=== PATIENT | female | born 1965 | race Caucasian/White ===

== ENCOUNTER 2022-11-28 07:23 | Outpatient (REF) | payer MEDICARE, SELFPAY ==
[2022-11-28 11:04] LABS: MANUAL DIFF FLAG NO
[2022-11-28 11:12] LABS: Basophils Percent Auto 0.3 % (0-2); Hematocrit 33.3 % (37.0-47.0); Hemoglobin 10.8 g/dl (12.0-16.0); Imm Gran Abs Auto 0.01 X10*3/uL (0.00-0.03); Imm Gran Pct Auto 0.3 % (0.0-0.4); Lymphocytes Absolute Auto 0.4 X10*3/uL (1.2-4.9); Lymphocytes Percent Auto 12.6 % (20-40); Mean Corpuscular HGB Conc 32.4 g/dl (31.0-35.0); Mean Corpuscular Hemoglobin 31.6 pg (27.0-33.0); Mean Corpuscular Volume 97.4 fL (80.0-98.0); Mean Platelet Volume 11.5 fL (9.4-12.3); Monocytes Absolute Auto 0.2 X10*3/uL (0.1-1.2); Monocytes Percent Auto 7.3 % (2-11); Neutrophils Absolute Auto 2.4 x10*3/uL (2.0-8.3); Neutrophils Percent Auto 78.5 % (45-73); Platelet Count 288 X10*3/uL (160-400); Red Blood Count 3.42 X10*6/uL (4.20-5.50); Red Cell Distribution Width 14.2 % (11.0-16.0)
[2022-11-28 11:35] LABS: Appearance Urine Clear; Color Urine Yellow; Glucose Urine UA Negative (Negative); Leukocyte Esterase Urine Negative (Negative); Nitrite Urine Negative (Negative); PH 5.5 (5.0-9.0); Specific Gravity - Urine 1.025 (1.005-1.025); UMIC TRIGGER UACC YES; Urine Blood Negative (Negative); Urine Ketones Negative (Negative); Urine Protein 30 (1+) mg/dL (Neg-Trace)
[2022-11-28 11:44] LABS: Bacteria Urine None Seen (None Seen); Calcium Oxalate Crystals Urine Present; Hyaline Casts Urine 0-2 /LPF (0-2); Squamous Epithelial Cell Urine 0-2 /HPF (0-2); WBC Urine 0-5 /HPF (0-5)
[2022-11-28 12:18] LABS: Alanine Aminotransferase 24 U/L (0-31); Albumin Level 3.8 g/dL (3.5-5.0); Alkaline Phosphatase 64 U/L (39-117); Anion Gap 13 (12-20); Aspartate Amino Transferase 37 U/L (5-31); Bilirubin Total 0.4 mg/dL (0.0-1.0); Blood Urea Nitrogen 17 mg/dL (9-16); Calcium 8.6 mg/dL (8.4-10.2); Carbon Dioxide 26 mmol/L (22-29); Chloride 108 mmol/L (96-108); Cholesterol 139 mg/dL; Estimated Glomerular Filt Rate > 60; Glucose Fasting 86 mg/dL (60-99); HDL Cholesterol 47 mg/dL; LDL Cholesterol Calculated 74 mg/dl; Potassium 3.6 mmol/L (3.3-5.1); Sodium 143 mmol/L (135-145); TSH reflex Free T4 1.68 uIU/mL (0.32-4.0); Total Protein 7.7 g/dL (6.5-8.0); Triglycerides 90 mg/dL
== END 2022-11-28 07:24 | disposition home or self-care (01) ==
LOC: HO.WFDLDS 07:23
PROVIDERS: Visit Provider Nurse Practitioner Family
DX: Z00.00 Encounter for general adult medical examination without abnormal findings (principal); R21 Rash and other nonspecific skin eruption; M32.9 Systemic lupus erythematosus, unspecified; D64.9 Anemia, unspecified; G62.9 Polyneuropathy, unspecified; N30.10 Interstitial cystitis (chronic) without hematuria
CPT/HCPCS: 36415; 80053; 80061; 81001; 84443; 85025

== ENCOUNTER 2023-01-19 11:35 | Outpatient (AMB) | payer MEDICARE, SELFPAY ==
--- NOTE | 2023-01-19 11:43 | MHC.PC.OV ---
Vital Signs 01/19/23 11:44 Height 5 ft Weight 105 lb 2 oz BMI 20.5 BP 110/60 Blood Pressure Location Rt brachial Position Sitting Pulse 89 Pulse Source Pulse Oximeter Pulse Oximetry (%) 99 Intake Visit Reasons: discuss referral for podiatry Intake Note: pt is here for referral for podiatry. patient states she hurt her foot with a vacuum. looking for just a referral for podiatry since she already has an appointment for podiatry. Dr Penn 01/26/23 @ 2pm on [facility] office phone number is [phone]. [place] Flap Trimmer Required: No Accompanied by: Self / Same As Patient Allergies Penicillins Allergy (Verified 01/19/23 12:21) Chest Pain Sulfa (Sulfonamide Antibiotics) Allergy (Verified 01/19/23 12:21) Chest Pain Medication List - Last Reconciled 01/19/23 by Jayro Bustillo CNP acyclovir 400 mg PO BID 90 days alendronate 70 mg PO QWEEK 90 days atorvastatin 10 mg PO DAILY 90 days azathioprine 25 mg (1/2 x 50 mg) PO DAILY 90 days betamethasone dipropionate 0.05% 1 appl topical BID PRN cyclobenzaprine 10 mg PO BEDTIME PRN esomeprazole magnesium 20 mg PO DAILY famotidine (Acid Speech Therapy Assistant (famotidine)) 20 mg PO DAILY hydroxyzine HCl 10 mg PO BEDTIME PRN ketoconazole 2% appl topical DAILY oxybutynin chloride 5 mg PO BID 90 days sennosides (senna) 17.2 mg (2 x 8.6 mg) PO DAILY PRN 90 days sucralfate 1 g PO QID 90 days warfarin 4 mg PO DAILY 90 days Tobacco use date assessed: 11/24/22 Dental Screening Dental Screen Date: 01/19/23 Did you have a dental visit in the last 12 months?: Yes Did you have a dental problem in the last 6 months where you did not have access to dental care?: No Was dental information given to patient?: Patient has dentist HPI HPI Comments History of Present Illness Details 57-year-old female presents with requests for podiatry referral. She notes she inadvertently injured her foot with a vacuum. She notes the vacuum landed on her left foot six weeks ago. She has been experiencing intermittent pain to the bottom of her left great toe. No swelling or redness. She has an appointment scheduled with Dr. Penn, podiatry on 01/26/2023. However, a referral is required. No acute symptoms today. [facility] Medical History Acid reflux DVT (deep venous thrombosis) FH: cholecystectomy (~05/08/14) Gallbladder & bile duct stone with obstruction Gastritis Hernia of abdominal wall (~08/08/06) Hyperlipemia Hypocalcemia Kidney stones (~12/06/04) Lupus Neuropathy Osteopenia Osteoporosis Pulmonary embolism SLE (systemic lupus erythematosus) Surgical History H/O splenectomy (~08/08/05) S/P IVC filter Family History Father Colon cancer Lupus AA (alcohol abuse) Heart disease Mother COVID, Onset Age: 82 Sister COVID Maternal Grandfather Myocardial infarction Maternal Grandmother Malignant melanoma Social History Household Members: Spouse Housing: House Patient Tobacco Use Status: Never used Tobacco e-Cigarette/Vaping Use: Never Used Substance Use Type: Caffiene service: No Current occupational status: retired and disabled Gender identity: Female Cognitive needs: No Hearing needs: No Vision needs: No Questionnaire Thrive Questionnaire Date Thrive assessed: 11/24/22 LAWSON-7 AMB Questionnaire LAWSON-7 Date LAWSON - 7 assessed: 11/24/22 Source: Developed by Drs. Mj Cohen, Marianne To, Dennis Bland and colleagues, with an educational carlos from [employer]. Review of Systems Const Details: Const Denies chills, Denies fatigue, Denies fever(s), Denies headache(s) and Denies weakness ENT Denies dizziness and Denies headache(s) Card Denies chest pain, Denies lightheadedness, Denies dyspnea and Denies other (Palpitations) Resp Denies cough, Denies dyspnea, Denies wheezing and Denies other ( shortness of breath) GI Denies abdominal pain, Denies melena, Denies hematochezia, Denies change in bowel habits, Denies dyspepsia and Denies nausea Denies hematuria and Denies dysuria Musc Denies abnormal gait, Denies myalgias, Denies arthralgias, Denies numbness and Denies tingling Skin/Breast Denies rash, Denies unusual bruising and Denies wounds Neuro Denies abnormal gait, Denies dizziness, Denies headache(s), Denies memory loss, Denies numbness, Denies Sensory deficit (Neuro), Denies tingling and Denies weakness Psych Denies anxiety and Denies depression Endo Denies fatigue Aller/Immun Denies wheezing Physical exam (Primary Care) Vital Signs: Last Vital Signs Pulse 89 01/19/23 11:44 BP 110/60 01/19/23 11:44 Pulse Ox 99 01/19/23 11:44 BMI result Body Mass Index 20.5 Tobacco/Smoking Status: Tobacco use Status Tobacco use date assessed 11/24/22 01/19/23 11:54 Patient Tobacco Use Status Never used Tobacco 01/19/23 11:54 e-Cigarette/Vaping Use Never Used 01/19/23 11:54 Thrive Assessment: Date of Thrive Assessment Date Thrive assessed 11/24/22 01/19/23 11:54 Const Other: General: no acute distress and well developed Nutritional Appearance: well nourished Orientation/consciousness: patient oriented x3 HENMT Head: Yes normocephalic and Yes atraumatic Eyes General: appearance normal, both eyes and all related structures Pupils: Equal, round and reactive pupils present EOM: EOMs intact bilaterally Resp Effort & Inspection: normal respiratory effort Auscultation: clear to auscultation bilaterally Cardio Rate: regular rate Rhythm: regular rhythm Heart sounds: S1 normal heart sound present, S2 normal heart sound present, no gallops, no murmurs and no rubs GI Palpation (GI): No Abdominal aortic bruit present, Soft to palpation, nontender, No hepatosplenomegaly present and No Rebound tenderness present Auscultation: normal bowel sounds General: Yes no CVA tenderness Back/Spine/Pelvis Back: no CVA tenderness Cervical Spine: cervical ROM normal and No Cervical spine tenderness Thoracic/Lumbar Spine: thoraco-lumbar ROM normal, No pain with thoraco-lumbar ROM, No thoracic spinal tenderness and No lumbar spinal tenderness Extrem General: Yes normal to inspection, No edema and No calf tenderness Normal ROM of the left foot and toes, palpable DP/PT pulses Skin General: warm and dry. Normal skin color. Normal skin turgor Lesions: no lesions Rashes: no rashes Trauma: no lacerations or abrasions Wounds: no wounds Nails: normal Neuro General: patient oriented x3, gait normal and no focal neuro deficit Cranial nerves: Yes Equal, round and reactive pupils present Cognition (Neuro): normal cognition Gait exam (Neuro): Normal gait present Sensory Exam: No Sensory deficit (Neuro) Psych Affect: normal affect Assessment and Plan Assessment & Plan (1) Pain of left great toe: Code(s): M79.675 - Pain in left toe(s) Plan: Reports intermittent pain to the bottom of her left great toe Normal exam of the left foot and toes, palpable DP/PT pulses Referred to Dr. Penn, podiatry May take Tylenol or Motrin apply warm/cold compresses for pain or discomfort Follow-up with worsening or new symptoms Verbalized understanding and agreed with treatment plan. Orders: Referrals Podiatry Referral M79.675 - Pain in left toe(s) Coding Level of Care Code Est Pt Level 3 (80010) Diagnoses Pain of left great toe M79.675 Time Spent (min) 25
[2023-01-19 11:44] VITALS: BP 110/60; PULSE 89; O2SAT 99; BMI 20.5
== END 2023-01-19 12:36 | disposition home or self-care (01) ==
PROVIDERS: PCP Nurse Practitioner Family; Visit Provider Nurse Practitioner Family
DX: M79.675 Pain in left toe(s) (principal)
CPT/HCPCS: 99213

== ENCOUNTER 2023-02-01 15:30 | Outpatient (AMB) | payer MEDICARE, SELFPAY ==
[2023-02-01 15:42] VITALS: BP 102/58; PULSE 80; RESP 12; TEMP 36.3; O2SAT 99; BMI 20.4
--- NOTE | 2023-02-01 15:42 | MHC.PC.OV ---
Vital Signs 02/01/23 15:42 Height 5 ft Weight 104 lb 4 oz BMI 20.4 BP 102/58 L Blood Pressure Location Rt brachial Position Sitting Respiration 12 Pulse 80 Pulse Source Pulse Oximeter Temp 97.4 F Temp Source Temporal Artery Scan Pulse Oximetry (%) 99 Oxygen Delivery Method Room Air Intake Visit Reasons: body aches, headache, clammy Intake Note: Patient states that her symptoms started mostly lastnight. Patient states that her throat is a little scratchy. Patient statesthat she hasn't really had an appetite the past couple of days. On Site Nurse Required: No Accompanied by: Self / Same As Patient Allergies Penicillins Allergy (Verified 02/01/23 16:04) Chest Pain Sulfa (Sulfonamide Antibiotics) Allergy (Verified 02/01/23 16:04) Chest Pain Medication List - Last Reconciled 02/01/23 by Jayro Bustillo CNP acyclovir 400 mg PO BID 90 days alendronate 70 mg PO QWEEK 90 days atorvastatin 10 mg PO DAILY 90 days azathioprine 25 mg (1/2 x 50 mg) PO DAILY 90 days cyclobenzaprine 10 mg PO BEDTIME PRN esomeprazole magnesium 20 mg PO DAILY famotidine (Acid Water Resources Project Manager (famotidine)) 20 mg PO DAILY hydroxyzine HCl 10 mg PO BEDTIME PRN oxybutynin chloride 5 mg PO BID 90 days sennosides (senna) 17.2 mg (2 x 8.6 mg) PO DAILY PRN 90 days sucralfate 1 g PO QID 90 days warfarin 4 mg PO DAILY 90 days Tobacco use date assessed: 11/24/22 Dental Screening Dental Screen Date: 02/01/23 Did you have a dental visit in the last 12 months?: Yes Did you have a dental problem in the last 6 months where you did not have access to dental care?: No Was dental information given to patient?: Patient has dentist HPI HPI Comments History of Present Illness Details 57-year-old female present with complaints of frontal headache, and body aches. She reports associated fatigue, scratchy throat, nausea, and nausea. She reports poor appetite in the past 2 days. She reports initial clammy skin which subsided. She notes her symptoms started last night. She denies sick contact. She notes she has a negative home COVID test today. [facility] Medical History Acid reflux DVT (deep venous thrombosis) FH: cholecystectomy (~05/08/14) Gallbladder & bile duct stone with obstruction Gastritis Hernia of abdominal wall (~08/08/06) Hyperlipemia Hypocalcemia Kidney stones (~12/06/04) Lupus Neuropathy Osteopenia Osteoporosis Pulmonary embolism SLE (systemic lupus erythematosus) Surgical History H/O splenectomy (~08/08/05) S/P IVC filter Family History Father Colon cancer Lupus AA (alcohol abuse) Heart disease Mother COVID, Onset Age: 82 Sister COVID Maternal Grandfather Myocardial infarction Maternal Grandmother Malignant melanoma Social History Household Members: Spouse Housing: House Patient Tobacco Use Status: Never used Tobacco e-Cigarette/Vaping Use: Never Used Substance Use Type: Caffiene service: No Current occupational status: retired and disabled Gender identity: Female Cognitive needs: No Hearing needs: No Vision needs: No Questionnaire Thrive Questionnaire Date Thrive assessed: 11/24/22 LAWSON-7 AMB Questionnaire LAWSON-7 Date LAWSON - 7 assessed: 11/24/22 Source: Developed by Drs. Mj Cohen, Marianne To, Dennis Bland and colleagues, with an educational carlos from [employer]. Review of Systems Const Details: Const Denies chills, Reports fatigue, Denies fever(s), Reports headache(s) and Denies weakness ENT Reports as per HPI Card Denies chest pain, Denies lightheadedness, Denies dyspnea and Denies other (Palpitations) Resp Denies cough, Denies dyspnea, Denies wheezing and Denies other ( shortness of breath) GI Denies abdominal pain, Denies melena, Denies hematochezia, Denies change in bowel habits, Denies dyspepsia and Denies nausea Denies hematuria and Denies dysuria Musc Denies abnormal gait, Reports myalgias, Denies arthralgias, Denies numbness and Denies tingling Skin/Breast Denies rash, Denies unusual bruising and Denies wounds Neuro Denies abnormal gait, Denies dizziness, Denies headache(s), Denies memory loss, Denies numbness, Denies Sensory deficit (Neuro), Denies tingling and Denies weakness Psych Denies anxiety, Denies depression, Denies memory loss Endo Denies cold intolerance, Reports fatigue, Denies heat intolerance, Denies polydipsia and Denies polyuria Aller/Immun Denies wheezing Physical exam (Primary Care) Vital Signs: Last Vital Signs Temp 97.4 F 02/01/23 15:42 Pulse 80 02/01/23 15:42 Resp 12 02/01/23 15:42 BP 102/58 L 02/01/23 15:42 Pulse Ox 99 02/01/23 15:42 Oxygen Delivery Method Room Air 02/01/23 15:42 BMI result Body Mass Index 20.4 Tobacco/Smoking Status: Tobacco use Status Tobacco use date assessed 11/24/22 02/01/23 15:53 Patient Tobacco Use Status Never used Tobacco 02/01/23 15:53 e-Cigarette/Vaping Use Never Used 02/01/23 15:53 Thrive Assessment: Date of Thrive Assessment Date Thrive assessed 11/24/22 02/01/23 15:53 Const Other: General: no acute distress and well developed Nutritional Appearance: well nourished Orientation/consciousness: patient oriented x3 HENMT Head is normocephalic Bilateral ear canal and TM are normal Nasal turbinates and oropharynx are pink and moist Sinuses are nontender with palpation No auricular or cervical lymphadenopathy Eyes General: appearance normal, both eyes and all related structures Pupils: Equal, round and reactive pupils present EOM: EOMs intact bilaterally Resp Effort & Inspection: normal respiratory effort Auscultation: clear to auscultation bilaterally Cardio Rate: regular rate Rhythm: regular rhythm Heart sounds: S1 normal heart sound present, S2 normal heart sound present, no gallops, no murmurs and no rubs GI Palpation (GI): No Abdominal aortic bruit present, Soft to palpation, nontender, No hepatosplenomegaly present and No Rebound tenderness present Auscultation: normal bowel sounds General: Yes no CVA tenderness Back/Spine/Pelvis Back: no CVA tenderness Cervical Spine: cervical ROM normal and No Cervical spine tenderness Thoracic/Lumbar Spine: thoraco-lumbar ROM normal, No pain with thoraco-lumbar ROM, No thoracic spinal tenderness and No lumbar spinal tenderness Extrem General: Yes normal to inspection, No edema and No calf tenderness Skin General: warm and dry. Normal skin color. Normal skin turgor Lesions: no lesions Rashes: no rashes Trauma: no lacerations or abrasions Wounds: no wounds Nails: normal Neuro General: patient oriented x3, gait normal and no focal neuro deficit Cranial nerves: Yes Equal, round and reactive pupils present Cognition (Neuro): normal cognition Gait exam (Neuro): Normal gait present Sensory Exam: No Sensory deficit (Neuro) Psych Appearance: grossly normal Affect: normal affect Attitude: cooperative Thought process: Normal thought process present Assessment and Plan Assessment & Plan (1) Viral illness: Code(s): B34.9 - Viral infection, unspecified Plan: Likely viral illness though possibly allergies. No exam evidence of bacterial infection Viral illness There is no antibiotic medication for viruses.? They must run their course.? Most average 5-7 days but 7-10 days is not uncommon and up to 14 days is still possible.? A cough is often the last symptom to resolve and this can last for weeks in some cases. Rest Hydrate well -? Drink plenty of fluids.? Especially water. Tylenol or ibuprofen for muscle aches, headache, fever/discomfort Cannot rule out COVID-19/RSV/Flu infection Nasal swab acquired and will be sent to the lab Return for new or worsening symptoms Verbalized understanding and agreed with treatment plan. Orders: Orders SARS-CoV2/FLU/RSV Today B34.9 - Viral infection, unspecified Coding Level of Care Code Est Pt Level 3 (41160) Diagnoses Viral illness B34.9
== END 2023-02-01 16:20 | disposition home or self-care (01) ==
PROVIDERS: PCP Nurse Practitioner Family; Visit Provider Nurse Practitioner Family
DX: B34.9 Viral infection, unspecified (principal)
CPT/HCPCS: 99213

== ENCOUNTER 2023-02-01 16:19 | Outpatient (REF) | payer MEDICARE, SELFPAY ==
[2023-02-02 14:24] LABS: Influenza A PCR NEGATIVE (Negative); Influenza B PCR NEGATIVE (Negative); Resp Syncy Virus RNA Qual PCR NEGATIVE (Negative); SARS COV2 PCR INHOUSE NEGATIVE (Negative)
== END 2023-02-01 16:20 | disposition home or self-care (01) ==
LOC: HO.LAB 16:19
PROVIDERS: Visit Provider Nurse Practitioner Family
DX: B34.9 Viral infection, unspecified (principal)
CPT/HCPCS: 0241U

== ENCOUNTER 2023-02-15 10:23 | Outpatient (AMB) | payer MEDICARE, SELFPAY ==
[2023-02-15 10:28] VITALS: BP 122/58; PULSE 126; RESP 15; TEMP 37.2; O2SAT 96; BMI 19.9
--- NOTE | 2023-02-15 10:28 | A.OFFPC_ITS ---
Vital Signs 02/15/23 10:28 02/15/23 11:22 Height 5 ft Weight 102 lb 2 oz BMI 19.9 BP 122/58 L Blood Pressure Location Rt brachial Position Sitting Respiration 15 Pulse 126 H 84 Pulse Source Pulse Oximeter Auscultation Temp 98.9 F Temp Source Oral Pulse Oximetry (%) 96 Oxygen Delivery Method Room Air Intake Visit Reasons: chronic cold and cough Intake Note: Patient reports she had a flu vaccine about 3-4 weeks ago. Then she was sick with with symptoms on malaise, body aches and joint pain. After she was starting to feel better she reports she started coughing and has been coughing for 3 weeks. Her cough is accompanied by feeling tired and not wanting to do anything. Web Specialist Required: No Accompanied by: Self / Same As Patient Allergies Penicillins Allergy (Verified 02/15/23 11:02) Chest Pain Sulfa (Sulfonamide Antibiotics) Allergy (Verified 02/15/23 11:02) Chest Pain Medication List - Last Reconciled 02/15/23 by Jayro Bustillo CNP acyclovir 400 mg PO BID 90 days alendronate 70 mg PO QWEEK 90 days atorvastatin 10 mg PO DAILY 90 days azathioprine 25 mg (1/2 x 50 mg) PO DAILY 90 days cyclobenzaprine 10 mg PO BEDTIME PRN esomeprazole magnesium 20 mg PO DAILY famotidine (Acid Multimedia Coordinator (famotidine)) 20 mg PO DAILY hydroxyzine HCl 10 mg PO BEDTIME PRN oxybutynin chloride 5 mg PO BID 90 days sennosides (senna) 17.2 mg (2 x 8.6 mg) PO DAILY PRN 90 days sucralfate 1 g PO QID 90 days warfarin 4 mg PO DAILY 90 days Tobacco use date assessed: 02/15/23 Dental Screening Dental Screen Date: 02/15/23 Did you have a dental visit in the last 12 months?: Yes Did you have a dental problem in the last 6 months where you did not have access to dental care?: No Was dental information given to patient?: Patient has dentist HPI HPI Comments History of Present Illness Details 57 y/o female presents with c/o intermittent nonproductive cough. She notes her symptoms started shortly after she had the flu vaccine 3-4 weeks ago. She notes initial malaise and body aches which subsided. She reports continued intermittent cough with associated fatigue for the 3 weeks. She has been taking Dayquil and Nyquil with some relief. She also admits to drinking adequate amount of fluids. She was evaluated for similar symptoms on 02/01/2023 and treated for viral illness. Nasal swab was collected and sent to the lab; resulted negative. She requests urinalysis due to history of interstitial cystitis. She denies recent or current symptoms. [facility] Medical History Acid reflux DVT (deep venous thrombosis) FH: cholecystectomy (~05/08/14) Gallbladder & bile duct stone with obstruction Gastritis Hernia of abdominal wall (~08/08/06) Hyperlipemia Hypocalcemia Kidney stones (~12/06/04) Lupus Neuropathy Osteopenia Osteoporosis Pulmonary embolism SLE (systemic lupus erythematosus) Surgical History H/O splenectomy (~08/08/05) S/P IVC filter Family History Father Colon cancer Lupus AA (alcohol abuse) Heart disease Mother COVID, Onset Age: 82 Sister COVID Maternal Grandfather Myocardial infarction Maternal Grandmother Malignant melanoma Social History Household Members: Spouse Housing: House Patient Tobacco Use Status: Never used Tobacco e-Cigarette/Vaping Use: Never Used Substance Use Type: Caffiene service: No Current occupational status: retired and disabled Current occupational exposures/hazards: No Gender identity: Female Cognitive needs: No Hearing needs: No Vision needs: No Questionnaire Thrive Questionnaire Date Thrive assessed: 11/24/22 LAWSON-7 AMB Questionnaire LAWSON-7 Date LAWSON - 7 assessed: 11/24/22 Source: Developed by Drs. Mj Cohen, Marianne To, Dennis Bland and colleagues, with an educational carlos from [employer]. Review of Systems Const Details: Const Denies chills, Reports fatigue, Denies fever(s), Denies headache(s) and Denies weakness ENT Denies dizziness and Denies headache(s) Card Denies chest pain, Denies lightheadedness, Denies dyspnea and Denies other (Palpitations) Resp Reports cough, Denies dyspnea, Denies wheezing and Denies other ( shortness of breath) GI Denies abdominal pain, Denies melena, Denies hematochezia, Denies change in bowel habits, Denies dyspepsia and Denies nausea Denies hematuria and Denies dysuria Musc Denies abnormal gait, Denies myalgias, Denies arthralgias, Denies numbness and Denies tingling Skin/Breast Denies rash, Denies unusual bruising and Denies wounds Neuro Denies abnormal gait, Denies dizziness, Denies headache(s), Denies memory loss, Denies numbness, Denies Sensory deficit (Neuro), Denies tingling and Denies weakness Psych Denies anxiety, Denies depression, Denies memory loss Endo Denies cold intolerance, Reports fatigue, Denies heat intolerance, Denies polydipsia and Denies polyuria Aller/Immun Denies wheezing Physical exam (Primary Care) Vital Signs: Last Vital Signs Temp 98.9 F 02/15/23 10:28 Pulse 126 H 02/15/23 10:28 Resp 15 02/15/23 10:28 BP 122/58 L 02/15/23 10:28 Pulse Ox 96 02/15/23 10:28 Oxygen Delivery Method Room Air 02/15/23 10:28 BMI result Body Mass Index 19.9 Tobacco/Smoking Status: Tobacco use Status Tobacco use date assessed 02/15/23 02/15/23 10:36 Patient Tobacco Use Status Never used Tobacco 02/15/23 10:36 e-Cigarette/Vaping Use Never Used 02/15/23 10:36 Thrive Assessment: Date of Thrive Assessment Date Thrive assessed 11/24/22 02/15/23 10:36 Const Other: General: no acute distress and well developed Nutritional Appearance: well nourished Orientation/consciousness: patient oriented x3 HENMT Head: Yes normocephalic and Yes atraumatic Eyes General: appearance normal, both eyes and all related structures Pupils: Equal, round and reactive pupils present EOM: EOMs intact bilaterally Resp Effort & Inspection: normal respiratory effort Auscultation: clear to auscultation bilaterally Cardio Rate: regular rate Rhythm: regular rhythm Heart sounds: S1 normal heart sound present, S2 normal heart sound present, no gallops, no murmurs and no rubs GI Palpation (GI): No Abdominal aortic bruit present, Soft to palpation, nontender, No hepatosplenomegaly present and No Rebound tenderness present Auscultation: normal bowel sounds General: Yes no CVA tenderness Back/Spine/Pelvis Back: no CVA tenderness Cervical Spine: cervical ROM normal and No Cervical spine tenderness Thoracic/Lumbar Spine: thoraco-lumbar ROM normal, No pain with thoraco-lumbar ROM, No thoracic spinal tenderness and No lumbar spinal tenderness Extrem General: Yes normal to inspection, No edema and No calf tenderness Skin General: warm and dry. Normal skin color. Normal skin turgor Lesions: no lesions Rashes: no rashes Trauma: no lacerations or abrasions Wounds: no wounds Nails: normal Neuro General: patient oriented x3, gait normal and no focal neuro deficit Cranial nerves: Yes Equal, round and reactive pupils present Cognition (Neuro): normal cognition Gait exam (Neuro): Normal gait present Sensory Exam: No Sensory deficit (Neuro) Psych Appearance: grossly normal Affect: normal affect Attitude: cooperative Thought process: Normal thought process present Assessment and Plan Assessment & Plan (1) Cough: Code(s): R05.9 - Cough, unspecified Plan: Likely viral illness though possibly allergies. No exam evidence of bacterial infection CXR ordered Urinalysis ordered Viral illness There is no antibiotic medication for viruses.? They must run their course.? Most average 5-7 days but 7-10 days is not uncommon and up to 14 days is still possible.? A cough is often the last symptom to resolve and this can last for weeks in some cases. Rest Hydrate well -? Drink plenty of fluids.? Especially water. Tylenol or ibuprofen for muscle aches, headache, fever/discomfort Benzonatate as prescribed Return for new or worsening symptoms Verbalized understanding and agreed with treatment plan. (2) Fatigue: Code(s): R53.83 - Other fatigue Plan: As above Orders: Orders UA CC w/rflx Micro + Cult Today R53.83 - Other fatigue XR chest 2V Today R05.9 - Cough, unspecified Medications: New benzonatate 200 mg PO BID PRN 20 caps 0RF cough Coding Level of Care Code Est Pt Level 3 (80039) Diagnoses Cough R05.9 Fatigue R53.83
[2023-02-15 11:22] VITALS: PULSE 84
== END 2023-02-15 11:26 | disposition home or self-care (01) ==
PROVIDERS: PCP Nurse Practitioner Family; Visit Provider Nurse Practitioner Family
DX: R05.9 Cough, unspecified (principal); R53.83 Other fatigue
CPT/HCPCS: 99213

== ENCOUNTER 2023-02-15 11:20 | Outpatient (REF) | payer MEDICARE, SELFPAY ==
[2023-02-15 15:37] LABS: Appearance Urine Clear; Color Urine Yellow; Glucose Urine UA Negative (Negative); Leukocyte Esterase Urine Negative (Negative); Nitrite Urine Negative (Negative); Specific Gravity - Urine 1.015 (1.005-1.025); Urine Blood Negative (Negative); Urine Ketones Negative (Negative); Urine Protein Trace mg/dL (Neg-Trace)
== END 2023-02-15 11:21 | disposition home or self-care (01) ==
LOC: HO.WFDLNP 11:20
PROVIDERS: Visit Provider Nurse Practitioner Family
DX: R50.9 Fever, unspecified (principal); R53.83 Other fatigue
CPT/HCPCS: 81003

== ENCOUNTER 2023-03-06 09:29 | Outpatient (AMB) | payer MEDICARE, SELFPAY ==
--- NOTE | 2023-03-06 09:32 | MHC.PC.OV ---
Vital Signs 03/06/23 09:33 Height 5 ft Weight 101 lb 8 oz BMI 19.8 BP 110/64 Blood Pressure Location Lt brachial Position Sitting Respiration 12 Pulse 88 Pulse Source Pulse Oximeter Temp 96.9 F Temp Source Temporal Artery Scan Pulse Oximetry (%) 98 Oxygen Delivery Method Room Air Intake Visit Reasons: Ongoing Cough Intake Note: Patient states that she has history of a bad case of bronchitis that needed 2 different rounds of antibiotics. Patient states that her bronchial tubes were so inflamed that she was prescribed 2 different inhalers which she states helped. Patient states that this may be her bronchitis resurfacing and would like the inhalers prescribed. 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 Accompanied by: Self / Same As Patient Allergies Penicillins Allergy (Verified 03/06/23 10:09) Chest Pain Sulfa (Sulfonamide Antibiotics) Allergy (Verified 03/06/23 10:09) Chest Pain Medication List - Last Reconciled 03/06/23 by Jayro Bustillo CNP acyclovir 400 mg PO BID 90 days alendronate 70 mg PO QWEEK 90 days atorvastatin 10 mg PO DAILY 90 days azathioprine 25 mg (1/2 x 50 mg) PO DAILY 90 days benzonatate 200 mg PO BID PRN cyclobenzaprine 10 mg PO BEDTIME PRN esomeprazole magnesium 20 mg PO DAILY famotidine (Acid Family Service Worker (famotidine)) 20 mg PO DAILY hydroxyzine HCl 10 mg PO BEDTIME PRN oxybutynin chloride 5 mg PO BID 90 days sennosides (senna) 17.2 mg (2 x 8.6 mg) PO DAILY PRN 90 days sucralfate 1 g PO QID 90 days warfarin 4 mg PO DAILY 90 days Tobacco use date assessed: 02/15/23 Dental Screening Dental Screen Date: 03/06/23 Did you have a dental visit in the last 12 months?: Yes Did you have a dental problem in the last 6 months where you did not have access to dental care?: No Was dental information given to patient?: Patient has dentist HPI HPI Comments History of Present Illness Details 57-year-old female presents with complaints of ongoing nonproductive cough. She reports associated headache. No fever, chills, body aches, fatigue, weakness. She was treated for viral illness including upper respiratory symptoms on 02/01/2023. Chest x-ray, Flu/RSV/COVID, and urinalysis tests were normal. On 02/15/2023, she presented with complaints of nonproductive cough which she says notes started shortly after she had the flu vaccine due to 3-4 weeks prior. She noted associated intermittent fatigue. She reports h/o bronchitis. [facility] Medical History Osteopenia Gastritis Hyperlipemia Hypocalcemia Acid reflux Gallbladder & bile duct stone with obstruction Lupus Neuropathy Osteoporosis Pulmonary embolism DVT (deep venous thrombosis) SLE (systemic lupus erythematosus) Kidney stones (~12/06/04) Hernia of abdominal wall (~08/08/06) FH: cholecystectomy (~05/08/14) Surgical History S/P IVC filter H/O splenectomy (~08/08/05) Family History Father Colon cancer Lupus AA (alcohol abuse) Heart disease Mother COVID, Onset Age: 82 Sister COVID Maternal Grandfather Myocardial infarction Maternal Grandmother Malignant melanoma Social History Household Members: Spouse Housing: House Patient Tobacco Use Status: Never used Tobacco e-Cigarette/Vaping Use: Never Used Substance Use Type: Caffiene service: No Current occupational status: retired and disabled Current occupational exposures/hazards: No Gender identity: Female Cognitive needs: No Hearing needs: No Vision needs: No Questionnaire Thrive Questionnaire Date Thrive assessed: 11/24/22 LAWSON-7 AMB Questionnaire LAWSON-7 Date LAWSON - 7 assessed: 11/24/22 Source: Developed by Drs. Mj Cohen, Marianne To, Dennis Bland and colleagues, with an educational carlos from [employer]. Review of Systems Const Details: Const Denies chills, Denies fatigue, Denies fever(s), Denies headache(s) and Denies weakness ENT Denies dizziness and Reports headache(s) Card Denies chest pain, Denies lightheadedness, Denies dyspnea and Denies other (Palpitations) Resp Reports cough, Denies dyspnea, Denies wheezing and Denies other ( shortness of breath) GI Denies abdominal pain, Denies melena, Denies hematochezia, Denies change in bowel habits, Denies dyspepsia and Denies nausea Denies hematuria and Denies dysuria Musc Denies abnormal gait, Denies myalgias, Denies arthralgias, Denies numbness and Denies tingling Neuro Denies abnormal gait, Denies dizziness, Reports headache(s), Denies memory loss, Denies numbness, Denies Sensory deficit (Neuro), Denies tingling and Denies weakness Psych Denies anxiety, Denies depression, Denies memory loss Endo Denies cold intolerance, Denies fatigue, Denies heat intolerance, Denies polydipsia and Denies polyuria Aller/Immun Denies wheezing Physical exam (Primary Care) Vital Signs: Last Vital Signs Temp 96.9 F 03/06/23 09:33 Pulse 88 03/06/23 09:33 Resp 12 03/06/23 09:33 BP 110/64 03/06/23 09:33 Pulse Ox 98 03/06/23 09:33 Oxygen Delivery Method Room Air 03/06/23 09:33 BMI result Body Mass Index 19.8 Tobacco/Smoking Status: Tobacco use Status Tobacco use date assessed 02/15/23 03/06/23 09:44 Patient Tobacco Use Status Never used Tobacco 03/06/23 09:44 e-Cigarette/Vaping Use Never Used 03/06/23 09:44 Thrive Assessment: Date of Thrive Assessment Date Thrive assessed 11/24/22 03/06/23 09:44 Const Other: General: no acute distress and well developed Nutritional Appearance: well nourished Orientation/consciousness: patient oriented x3 [facility] Head: Yes normocephalic and Yes atraumatic Eyes General: appearance normal, both eyes and all related structures Pupils: Equal, round and reactive pupils present EOM: EOMs intact bilaterally Resp Effort & Inspection: normal respiratory effort Auscultation: clear to auscultation bilaterally Cardio Rate: regular rate Rhythm: regular rhythm Heart sounds: S1 normal heart sound present, S2 normal heart sound present, no gallops, no murmurs and no rubs GI Palpation (GI): No Abdominal aortic bruit present, Soft to palpation, nontender, No hepatosplenomegaly present and No Rebound tenderness present Auscultation: normal bowel sounds General: Yes no CVA tenderness Back/Spine/Pelvis Back: no CVA tenderness Cervical Spine: cervical ROM normal and No Cervical spine tenderness Thoracic/Lumbar Spine: thoraco-lumbar ROM normal, No pain with thoraco-lumbar ROM, No thoracic spinal tenderness and No lumbar spinal tenderness Extrem General: Yes normal to inspection, No edema and No calf tenderness Skin General: warm and dry. Normal skin color. Normal skin turgorl Neuro General: patient oriented x3, gait normal and no focal neuro deficit Cranial nerves: Yes Equal, round and reactive pupils present Cognition (Neuro): normal cognition Gait exam (Neuro): Normal gait present Sensory Exam: No Sensory deficit (Neuro) Psych Appearance: grossly normal Affect: normal affect Attitude: cooperative Thought process: Normal thought process present Assessment and Plan Assessment & Plan (1) Cough: Code(s): R05.9 - Cough, unspecified Qualifiers: Cough type: subacute Qualified Code(s): R05.2 - Subacute cough Plan: Reports nonproductive cough for approximately 6 weeks She was treated for viral illness and none productive cough on previous visits Viral testing, chest x-ray, and urinalysis were normal Lung sounds normal bilaterally Her cough may be attributed to the viral illness that was treated. She is informed that cough is usually last ago and may last for several weeks Bronchitis is also possible Prednisone ordered. Take as prescribed Follow-up with worsening or new symptoms Verbalized understanding and agreed with treatment plan. Medications: New prednisone 20 mg PO DAILY 5 tabs 0RF 5 days Coding Level of Care Code Est Pt Level 2 (96682) Diagnoses Subacute cough R05.2 Cough type: subacute
[2023-03-06 09:33] VITALS: BP 110/64; PULSE 88; RESP 12; TEMP 36.1; O2SAT 98; BMI 19.8
== END 2023-03-06 10:24 | disposition home or self-care (01) ==
PROVIDERS: PCP Nurse Practitioner Family; Visit Provider Nurse Practitioner Family
DX: R05.2 Subacute cough (principal)
CPT/HCPCS: 99212

== ENCOUNTER 2023-03-23 09:15 | Outpatient (AMB) | payer MEDICARE, SELFPAY ==
[2023-03-23 09:36] VITALS: BP 122/74; PULSE 97; RESP 12; TEMP 36.3; O2SAT 99; BMI 19.6
--- NOTE | 2023-03-23 09:36 | MHC.PC.OV ---
Vital Signs 03/23/23 09:36 Height 5 ft Weight 100 lb 8 oz BMI 19.6 BP 122/74 Blood Pressure Location Lt brachial Position Sitting Respiration 12 Pulse 97 Pulse Source Pulse Oximeter Temp 97.3 F Temp Source Temporal Artery Scan Pulse Oximetry (%) 99 Oxygen Delivery Method Room Air Intake Visit Reasons: 3 mos health maint,ongoing cough Intake Note: Patient states that shes struggling with this dry cough. Patient is curious if any of her meds may be contributing to her having the cough. Patient states that her Anemia has been the same, shes still eating small portions and isnt big on eating. Patient Transport Orderly Required: No Accompanied by: Self / Same As Patient Allergies Penicillins Allergy (Verified 03/23/23 10:17) Chest Pain Sulfa (Sulfonamide Antibiotics) Allergy (Verified 03/23/23 10:17) Chest Pain Medication List - Last Reconciled 03/23/23 by Jayro Bustillo CNP acyclovir 400 mg PO BID 90 days alendronate 70 mg PO QWEEK 90 days atorvastatin 10 mg PO DAILY 90 days azathioprine 25 mg (1/2 x 50 mg) PO DAILY 90 days benzonatate 200 mg PO BID PRN cyclobenzaprine 10 mg PO BEDTIME PRN esomeprazole magnesium 20 mg PO DAILY famotidine (Acid Dust Handler (famotidine)) 20 mg PO DAILY hydroxyzine HCl 10 mg PO BEDTIME PRN oxybutynin chloride 5 mg PO BID 90 days sennosides (senna) 17.2 mg (2 x 8.6 mg) PO DAILY PRN 90 days sucralfate 1 g PO QID 90 days warfarin 4 mg PO DAILY 90 days Tobacco use date assessed: 02/15/23 Dental Screening Dental Screen Date: 03/23/23 Did you have a dental visit in the last 12 months?: Yes Did you have a dental problem in the last 6 months where you did not have access to dental care?: No Was dental information given to patient?: Patient has dentist HPI HPI Comments History of Present Illness Details 57-year-old female presents for health maintenance. She reports ongoing nonproductive cough. No headache, fever, chills, body aches, fatigue, weakness. She was treated for viral illness including upper respiratory symptoms on 02/01/2023. Chest x-ray, Flu/RSV/COVID, and urinalysis tests were normal. On 02/04/2023, she called the on-call provider due to excessive cough with associated vomiting. She was prescribed z-pack which she notes she took prescribed with resolution of the vomiting. On 02/15/2023, she presented with complaints of nonproductive cough which she notes started shortly after she had the flu vaccine due to 3-4 weeks prior. She noted associated intermittent fatigue. On 03/06/2023, she presented with ongoing nonproductive cough. Lung sounds clear bilaterally. She was treated for viral illness versus bronchitis with 5 days course of prednisone. She reports significant improvement of her symptoms while on prednisone. However, symptoms intensify following the course of prednisone. She reports persistent nonproductive cough. She denies associated symptoms. She has slightly low anemia with normal iron and B12 levels. She was referred to [facility] hematology/oncology. She has h/o chronic normocytic anemia. She states she was last evaluated by Dr. Suggs, [facility] [place] in 05/2022 and was told she was stable. Therefore, she never followed up what she was reffered on 12/22/2022. [facility] Medical History Osteopenia Gastritis Hyperlipemia Hypocalcemia Acid reflux Gallbladder & bile duct stone with obstruction Lupus Neuropathy Osteoporosis Pulmonary embolism DVT (deep venous thrombosis) SLE (systemic lupus erythematosus) Kidney stones (~12/06/04) Hernia of abdominal wall (~08/08/06) FH: cholecystectomy (~05/08/14) Surgical History S/P IVC filter H/O splenectomy (~08/08/05) Family History Father Colon cancer Lupus AA (alcohol abuse) Heart disease Mother COVID, Onset Age: 82 Sister COVID Maternal Grandfather Myocardial infarction Maternal Grandmother Malignant melanoma Social History Household Members: Spouse Housing: House Patient Tobacco Use Status: Never used Tobacco e-Cigarette/Vaping Use: Never Used Use of substances other than those prescribed or required for medical reasons: No Substance Use Type: Caffiene service: No Current occupational status: retired and disabled Current occupational exposures/hazards: No Gender identity: Female Cognitive needs: No Hearing needs: No Vision needs: No Questionnaire Thrive Questionnaire Date Thrive assessed: 11/24/22 LAWSON-7 AMB Questionnaire LAWSON-7 Date LAWSON - 7 assessed: 11/24/22 Source: Developed by Drs. Mj Cohen, Marianne To, Dennis Bland and colleagues, with an educational carlos from [employer]. Review of Systems Const Details: Const Denies chills, Denies fatigue, Denies fever(s), Denies headache(s) and Denies weakness ENT Denies dizziness and Denies headache(s) Card Denies chest pain, Denies lightheadedness, Denies dyspnea and Denies other (Palpitations) Resp Reports cough, Denies dyspnea, Denies wheezing and Denies other ( shortness of breath) GI Denies abdominal pain, Denies melena, Denies hematochezia, Denies change in bowel habits, Denies dyspepsia and Denies nausea Denies hematuria and Denies dysuria Musc Denies abnormal gait, Denies myalgias, Denies arthralgias, Denies numbness and Denies tingling Neuro Denies abnormal gait, Denies dizziness, Denies headache(s), Denies memory loss, Denies numbness, Denies Sensory deficit (Neuro), Denies tingling and Denies weakness Psych Denies anxiety, Denies depression, Denies memory loss Endo Denies cold intolerance, Denies fatigue, Denies heat intolerance, Denies polydipsia and Denies polyuria Aller/Immun Denies wheezing Physical exam (Primary Care) Vital Signs: Last Vital Signs Temp 97.3 F 03/23/23 09:36 Pulse 97 03/23/23 09:36 Resp 12 03/23/23 09:36 BP 122/74 03/23/23 09:36 Pulse Ox 99 03/23/23 09:36 Oxygen Delivery Method Room Air 03/23/23 09:36 BMI result Body Mass Index 19.6 Tobacco/Smoking Status: Tobacco use Status Tobacco use date assessed 02/15/23 03/23/23 09:50 Patient Tobacco Use Status Never used Tobacco 03/23/23 09:50 e-Cigarette/Vaping Use Never Used 03/23/23 09:50 Thrive Assessment: Date of Thrive Assessment Date Thrive assessed 11/24/22 03/23/23 09:50 Const Other: General: no acute distress and well developed Nutritional Appearance: well nourished Orientation/consciousness: patient oriented x3 [facility]EN[facility] Head: Yes normocephalic and Yes atraumatic Eyes General: appearance normal, both eyes and all related structures Pupils: Equal, round and reactive pupils present EOM: EOMs intact bilaterally Resp Effort & Inspection: normal respiratory effort Auscultation: clear to auscultation bilaterally Cardio Rate: regular rate Rhythm: regular rhythm Heart sounds: S1 normal heart sound present, S2 normal heart sound present, no gallops, no murmurs and no rubs GI Palpation (GI): No Abdominal aortic bruit present, Soft to palpation, nontender, No hepatosplenomegaly present and No Rebound tenderness present Auscultation: normal bowel sounds General: Yes no CVA tenderness Back/Spine/Pelvis Back: no CVA tenderness Cervical Spine: cervical ROM normal and No Cervical spine tenderness Thoracic/Lumbar Spine: thoraco-lumbar ROM normal, No pain with thoraco-lumbar ROM, No thoracic spinal tenderness and No lumbar spinal tenderness Extrem General: Yes normal to inspection, No edema and No calf tenderness Skin General: warm and dry. Normal skin color. Normal skin turgorl Neuro General: patient oriented x3, gait normal and no focal neuro deficit Cranial nerves: Yes Equal, round and reactive pupils present Cognition (Neuro): normal cognition Gait exam (Neuro): Normal gait present Sensory Exam: No Sensory deficit (Neuro) Psych Appearance: grossly normal Affect: normal affect Attitude: cooperative Thought process: Normal thought process present Assessment and Plan Assessment & Plan (1) Recurrent non-productive cough: Code(s): R05.8 - Other specified cough Plan: She has been experiencing persistent nonproductive cough for the past 2 months Her symptoms improved while on prednisone, therefore, her cough may be attributed to allergies She notes she takes esomeprazole magnesium and famotidine daily for GERD, therefore, GERD is ruled out Recent chest x-ray was negative Lung sounds clear and equal bilaterally Flovent ordered. Instructed her new since advised to take daily as prescribed Zyrtec ordered. 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 Orders: Referrals Pulmonology Referral R05.8 - Other specified cough Medications: New fluticasone propionate 44 mcg/actuation (Flovent HFA) administer with spacer 2 puffs inhalation BID 30 days 10.6 grams 1RF Refilled acyclovir 400 mg PO BID 90 days 180 tabs 1RF azathioprine 25 mg (1/2 x 50 mg) PO DAILY 45 tabs 1RF 90 days alendronate 70 mg PO QWEEK 90 days 13 tabs 1RF Discontinued azathioprine Discontinued Reason: Doctor's Order 25 mg (1/2 x 50 mg) PO DAILY 45 tabs 1RF 90 days Coding Level of Care Code Est Pt Level 3 (32599) Diagnoses Recurrent non-productive cough R05.8
== END 2023-03-23 10:50 | disposition home or self-care (01) ==
PROVIDERS: PCP Nurse Practitioner Family; Visit Provider Nurse Practitioner Family
DX: R05.8 Other specified cough (principal)
CPT/HCPCS: 99214

== ENCOUNTER 2023-03-30 15:31 | Outpatient (AMB) | payer MEDICARE, SELFPAY ==
--- NOTE | 2023-03-30 15:52 | A.OFFPC_ITS ---
Vital Signs 03/30/23 15:55 Height 5 ft Weight 100 lb BMI 19.5 BP 124/66 Blood Pressure Location Lt brachial Position Sitting Respiration 13 Pulse 89 Pulse Source Pulse Oximeter Temp 97.9 F Temp Source Temporal Artery Scan Pulse Oximetry (%) 98 Oxygen Delivery Method Room Air Intake Visit Reasons: Ongoing cough Iron Pourer Required: No Accompanied by: Self / Same As Patient Allergies Penicillins Allergy (Verified 03/30/23 16:18) Chest Pain Sulfa (Sulfonamide Antibiotics) Allergy (Verified 03/30/23 16:18) Chest Pain Medication List - Last Reconciled 03/30/23 by Jayro Bustillo CNP acyclovir 400 mg PO BID 90 days alendronate 70 mg PO QWEEK 90 days atorvastatin 10 mg PO DAILY 90 days azathioprine 25 mg (1/2 x 50 mg) PO DAILY 90 days benzonatate 200 mg PO BID PRN esomeprazole magnesium 20 mg PO DAILY fluticasone propionate 44 mcg/actuation (Flovent HFA) 2 puffs inhalation BID 30 days hydroxyzine HCl 10 mg PO BEDTIME PRN oxybutynin chloride 5 mg PO BID 90 days sennosides (senna) 17.2 mg (2 x 8.6 mg) PO DAILY PRN 90 days sucralfate 1 g PO QID 90 days warfarin 4 mg PO DAILY 90 days Tobacco use date assessed: 02/15/23 Dental Screening Dental Screen Date: 03/30/23 Did you have a dental visit in the last 12 months?: Yes Did you have a dental problem in the last 6 months where you did not have access to dental care?: No Was dental information given to patient?: Patient has dentist HPI HPI Comments History of Present Illness Details 57-year-old male presents for ongoing, p ersistent nonproductive cough for the past 2 months. She has been evaluated multiple times and treated and office for this complaint. Chest x-ray was unremarkable. She responded to oral prednisone. She was at a prescribed fluticasone. She was referred to pulmonology and has an appointment on 04/03/2023. She notes that she has been using fluticasone as prescribed without improvement of her cough. She denies any associated symptoms. [facility] Medical History Osteopenia Gastritis Hyperlipemia Hypocalcemia Acid reflux Gallbladder & bile duct stone with obstruction Lupus Neuropathy Osteoporosis Pulmonary embolism DVT (deep venous thrombosis) SLE (systemic lupus erythematosus) Kidney stones (~12/06/04) Hernia of abdominal wall (~08/08/06) FH: cholecystectomy (~05/08/14) Surgical History S/P IVC filter H/O splenectomy (~08/08/05) Family History Father Colon cancer Lupus AA (alcohol abuse) Heart disease Mother COVID, Onset Age: 82 Sister COVID Maternal Grandfather Myocardial infarction Maternal Grandmother Malignant melanoma Social History Household Members: Spouse Housing: House Patient Tobacco Use Status: Never used Tobacco e-Cigarette/Vaping Use: Never Used Substance Use Type: Caffiene service: No Current occupational status: retired and disabled Current occupational exposures/hazards: No Gender identity: Female Cognitive needs: No Hearing needs: No Vision needs: No Questionnaire Thrive Questionnaire Date Thrive assessed: 11/24/22 LAWSON-7 AMB Questionnaire LAWSON-7 Date LAWSON - 7 assessed: 11/24/22 Source: Developed by Drs. jM Cohen, Marianne To, Dennis Bland and colleagues, with an educational carlos from [employer]. Review of Systems Const Details: Const Denies chills, Denies fatigue, Denies fever(s), Denies headache(s) and Denies weakness ENT Denies dizziness and Denies headache(s) Card Denies chest pain, Denies lightheadedness, Denies dyspnea and Denies other (Palpitations) Resp Denies cough, Denies dyspnea, Denies wheezing and Denies other ( shortness of breath) GI Denies abdominal pain, Denies melena, Denies hematochezia, Denies change in bowel habits, Denies dyspepsia and Denies nausea Denies hematuria and Denies dysuria Musc Denies abnormal gait, Denies myalgias, Denies arthralgias, Denies numbness and Denies tingling Skin/Breast Denies rash, Denies unusual bruising and Denies wounds Neuro Denies abnormal gait, Denies dizziness, Denies headache(s), Denies memory loss, Denies numbness, Denies Sensory deficit (Neuro), Denies tingling and Denies weakness Psych Denies anxiety, Denies depression, Denies memory loss Endo Denies cold intolerance, Denies fatigue, Denies heat intolerance, Denies polydipsia and Denies polyuria Aller/Immun Denies wheezing Physical exam (Primary Care) Vital Signs: Last Vital Signs Temp 97.9 F 03/30/23 15:55 Pulse 89 03/30/23 15:55 Resp 13 03/30/23 15:55 BP 124/66 03/30/23 15:55 Pulse Ox 98 03/30/23 15:55 Oxygen Delivery Method Room Air 03/30/23 15:55 BMI result Body Mass Index 19.5 Tobacco/Smoking Status: Tobacco use Status Tobacco use date assessed 02/15/23 03/30/23 15:52 Patient Tobacco Use Status Never used Tobacco 03/30/23 15:52 e-Cigarette/Vaping Use Never Used 03/30/23 15:52 Thrive Assessment: Date of Thrive Assessment Date Thrive assessed 11/24/22 03/30/23 15:52 Const Other: General: no acute distress and well developed Nutritional Appearance: well nourished Orientation/consciousness: patient oriented x3 HENMT Head: Yes normocephalic and Yes atraumatic Eyes General: appearance normal, both eyes and all related structures Pupils: Equal, round and reactive pupils present EOM: EOMs intact bilaterally Resp Effort & Inspection: normal respiratory effort Auscultation: clear to auscultation bilaterally Cardio Rate: regular rate Rhythm: regular rhythm Heart sounds: S1 normal heart sound present, S2 normal heart sound present, no gallops, no murmurs and no rubs GI Palpation (GI): No Abdominal aortic bruit present, Soft to palpation, nontender, No hepatosplenomegaly present and No Rebound tenderness present Auscultation: normal bowel sounds General: Yes no CVA tenderness Back/Spine/Pelvis Back: no CVA tenderness Cervical Spine: cervical ROM normal and No Cervical spine tenderness Thoracic/Lumbar Spine: thoraco-lumbar ROM normal, No pain with thoraco-lumbar ROM, No thoracic spinal tenderness and No lumbar spinal tenderness Extrem General: Yes normal to inspection, No edema and No calf tenderness Skin General: warm and dry. Normal skin color. Normal skin turgor Lesions: no lesions Rashes: no rashes Trauma: no lacerations or abrasions Wounds: no wounds Nails: normal Neuro General: patient oriented x3, gait normal and no focal neuro deficit Cranial nerves: Yes Equal, round and reactive pupils present Cognition (Neuro): normal cognition Gait exam (Neuro): Normal gait present Sensory Exam: No Sensory deficit (Neuro) Psych Appearance: grossly normal Affect: normal affect Attitude: cooperative Thought process: Normal thought process present Assessment and Plan Assessment & Plan (1) Recurrent non-productive cough: Code(s): R05.8 - Other specified cough Plan: The patient presents with ongoing nonproductive cough for the past 2 months. Her symptoms have been refractory to multiple treatments. She had minimal response to oral steroids. She notes that she has been using the current inhaler with no improvement. She had a chest x-ray that was unremarkable. Lung sounds clear and equal bilaterally. Symptoms may be attributed to allergies. Will increase fluticasone Albuterol inhaler ordered. Advised to use albuterol inhaler before fluticasone. Rinse mouth with water after each use of fluticasone Zyrtec ordered. Take as prescribed She has an appointment with pulmonology next week. Advised to follow-up as planned Return with worsening or new symptoms Verbalized understanding and agreed with treatment plan. Medications: New fluticasone propionate 110 mcg/actuation 1 puff inhalation BID 30 days 12 grams 0RF albuterol sulfate 90 mcg/actuation (Ventolin HFA) 2 puffs inhalation Q4-6H PRN 8.5 grams 2RF shortness of breath or wheezing 30 days Discontinued fluticasone propionate 44 mcg/actuation (Flovent HFA) administer with spacer Discontinued Reason: Doctor's Order 2 puffs inhalation BID 30 days 10.6 grams 1RF Coding Level of Care Code Est Pt Level 3 (04207) Diagnoses Recurrent non-productive cough R05.8
[2023-03-30 15:55] VITALS: BP 124/66; PULSE 89; RESP 13; TEMP 36.6; O2SAT 98; BMI 19.5
== END 2023-03-30 16:36 | disposition home or self-care (01) ==
PROVIDERS: PCP Nurse Practitioner Family; Visit Provider Nurse Practitioner Family
DX: R05.8 Other specified cough (principal)
CPT/HCPCS: 99214

== ENCOUNTER 2023-04-03 08:38 | Outpatient (AMB) | payer MEDICARE, SELFPAY ==
[2023-04-03 08:51] VITALS: BP 134/72; PULSE 107; O2SAT 98; BMI 19.9
--- NOTE | 2023-04-03 08:51 | A.OFFVIS_ITS ---
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 Required: No Television Director: Television Director offered & declined Accompanied by: Self / Same As Patient Allergies Penicillins Allergy (Verified 04/03/23 08:58) Chest Pain Sulfa (Sulfonamide Antibiotics) Allergy (Verified 04/03/23 08:58) Chest Pain Medication List - Last Reconciled 04/03/23 by Kandice Fajardo LPN acyclovir 400 mg PO BID 90 days albuterol sulfate 90 mcg/actuation (Ventolin HFA) 2 puffs inhalation Q4-6H PRN 30 days alendronate 70 mg PO QWEEK 90 days atorvastatin 10 mg PO DAILY 90 days azathioprine 25 mg (1/2 x 50 mg) PO DAILY 90 days esomeprazole magnesium 20 mg PO DAILY fluticasone propionate 110 mcg/actuation 1 puff inhalation BID 30 days hydroxyzine HCl 10 mg PO BEDTIME PRN oxybutynin chloride 5 mg PO BID 90 days sennosides (senna) 17.2 mg (2 x 8.6 mg) PO DAILY PRN 90 days sucralfate 1 g PO QID 90 days warfarin 4 mg PO DAILY 90 days HPI cough HPI Details Stephanie is a pleasant 57 year old, minimal smoker, with underlying lupus maintained on Imuran, s/p splenectomy in 2005 and h/o DVT/PE on coumadin. She was referred by PCP for subacute nonproductive cough for the past eight weeks. She reports receiving the flu vaccination in the beginning of January and symptoms of dry, persistent cough with moderate dyspnea started shortly after. She was prescribed Flovent, albuterol, prednisone and azithromycin with minimal improvement in symptoms. Denies any prior personal or family history of respiratory conditions. She does have a family history of autoimmune conditions and was diagnosed with Lupus years ago, trialing long course of prednisone and methotrexate. She denies any occupational exposures. She does admit to having allergies, with minimal improvement with antihistamines. 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) Family History Father Colon cancer Lupus AA (alcohol abuse) Heart disease Mother COVID, Onset Age: 82 Sister COVID Maternal Grandfather Myocardial infarction Maternal Grandmother Malignant melanoma Social History Household Members: Spouse Housing: House Patient Tobacco Use Status: Never used Tobacco e-Cigarette/Vaping Use: Never Used Substance Use Type: Caffiene service: No Current occupational status: retired and disabled Current occupational exposures/hazards: No Gender identity: Female Cognitive needs: No Hearing needs: No Vision needs: No Review of Systems Const Denies chills, Denies excessive sweating, Denies fever(s), Denies headache(s) and Denies night sweats Eyes Denies dry eyes, Denies irritation and Denies itchy eyes ENT Reports Normal hearing present, Denies headache(s), Denies nasal congestion, Denies nasal discharge, Denies post nasal drip and Denies sore throat Card Denies chest pain, Denies chest pain at rest, Denies chest pain with activity, Denies claudication, Denies leg edema, Denies dyspnea, Denies orthopnea and Denies paroxysmal nocturnal dyspnea Resp Denies chest congestion, Denies excessive phlegm production, Denies pain on inspiration, Denies pain with cough, Denies dyspnea, Denies stridor and Reports wheezing Musc Reports arthralgias Neuro Reports Normal hearing present and Denies headache(s) Endo Denies excessive sweating Lars/Lymph Denies lymphadenopathy Aller/Immun Denies itchy eyes, Denies seasonal rhinorrhea and Reports wheezing Physical Exam Vital Signs: Last Vital Signs Pulse 107 H 04/03/23 08:51 BP 134/72 04/03/23 08:51 Pulse Ox 98 04/03/23 08:51 Oxygen Delivery Method Room Air 04/03/23 08:51 BMI result Body Mass Index 19.9 Const General: cooperative, healthy appearing, comfortable, no acute distress, well developed and alert Orientation/consciousness: patient oriented x3 Limitations: no limitations HEENT Head: Yes normal to inspection, Yes normocephalic and Yes atraumatic Ears: hearing grossly normal bilaterally and external ears normal Eyes General: appearance normal, both eyes and all related structures Eyelids: Yes eyelids normal Sclerae: sclerae normal EOM: EOMs intact bilaterally Neck Neck: Yes normal visual inspection and Yes no lymphadenopathy Lymphatic: no lymphadenopathy noted Chest Chest palpation & inspection: normal inspection of the chest Resp Other: faint expiratory wheezes which resolved after nebulizer treatment Effort & Inspection: normal respiratory effort, able to speak in complete sentences, no audible wheezes, no cough, no stridor, not tachypneic, no tripod positioning and no use of accessory muscles Cardio Jugular venous distension: no JVD Rate: regular rate Rhythm: regular rhythm Skin Other: scattered erythematous lesions on forearms, chest and right side of neck. Neuro General: patient oriented x3 Cranial nerves: Yes Normal hearing present Cognition (Neuro): normal cognition Gait exam (Neuro): Normal gait present Extrem General: Yes normal to inspection, Yes capillary refill normal, Yes no clubbing, cyanosis or edema and Yes no pedal edema Psych Appearance: grossly normal and well kempt Speech and movement: Normal speech and movement present and Clear speech present Affect: normal affect Attitude: cooperative Thought process: Normal thought process present Thought content: Normal thought content present Insight: Good insight present (Psych) Judgement: Good judgement present (Psych) Office Procedures 6 Minute Walk Time:: 09:51 SPO2 % at rest: 98 Pulse at rest: 107 SPO2 % during excercise: 98 Pulse during excercise: 126 SPO2 % after excercise: 99 Pulse after excercise: 103 Distance in yards walked: 1,200 Abby Score: 7 Performance Observations:: Patient walked on level ground unassisted. She walks slowly and reports moderate effort. Patient maintained O2 at 98% for the entire 6 minute walk. She denies resp distress. No supplemental O2 was needed for this walk. [address]2723 - 6 Minute Walk Nebulizer Treatment Nebulizer Treatment 62890-Mntmbqzou/MDI RX initial, or Nebulizer Subsequent Treatment Office Meds ipratropium 0.5 mg-albuterol 3 mg (2.5 mg base)/3 mL nebulization soln Performing Provider: Shirlene Roberts NP Performing Location: [facility] [place] Pulmonology Services-[facility] Administered by: Kandice Fajardo LPN on 04/03/23 09:30 Dose Route Admin Location Dispensed Lot Number Expiration Date NDC Casing Tester 3 mL inhalation 3 mL [id number] 08/16/24 7486-3070-24 [facility] Assessment & Plan Assessment & Plan (1) Reactive airway disease: Code(s): J45.909 - Unspecified asthma, uncomplicated (2) Dyspnea: Code(s): R06.00 - Dyspnea, unspecified (3) Cough: Code(s): R05.9 - Cough, unspecified Qualifiers: Cough type: subacute Qualified Code(s): R05.2 - Subacute cough Plan Stephanie's symptoms are likely related to reactive airway disease/asthma with an allergic component. Will obtain PFT and labs to thoroughly evaluate. CXR unremarkable and patient with persistent symptoms minimally responsive to prednisone and antibiotics, will send for CT chest for evaluate for parenchymal disease. She reported significant dyspnea on exertion, 6MWT performed and there is no need to supplemental oxygen at this time. Patient received nebulizer treatment in office with resolution of expiratory wheezes as well as cough, will give nebulizer machine for home use, send in duoneb to use q 6-8 hours PRN wheezing/cough. Will also change ICS to ICS/LABA. Will follow up in 6 weeks to review results or sooner if needed. All questions were answered and patient is in agreement of plan. Orders: Orders Rast Allergen Today R05.9 - Cough, unspecified CT chest wo IV con Today R05.9 - Cough, unspecified Complete Blood Count Auto Diff Today R05.9 - Cough, unspecified AMB 6 minute walk Today J45.909 - Unspecified asthma, uncomplicated, R06.00 - Dyspnea, unspecified AMB Nebulizer Treatment Today J45.909 - Unspecified asthma, uncomplicated, R06.00 - Dyspnea, unspecified PFT pulmonary function test Today R05.9 - Cough, unspecified Medications: New ipratropium-albuterol 0.5 mg-3 mg(2.5 mg base)/3 mL 3 mL inhalation Q6-8H PRN 90 mL 3RF wheezing fluticasone propion-salmeterol 115-21 mcg/actuation (Advair HFA) 2 puffs inhalation Q12H 1 ea 3RF Discontinued fluticasone propionate 110 mcg/actuation Discontinued Reason: No Longer Medically Relevant 1 puff inhalation BID 30 days 12 grams 0RF Coding Level of Care Code New Pt Level 4 (29142) Diagnoses Reactive airway disease J45.909 Dyspnea R06.00 Subacute cough R05.2 Cough type: subacute CPT Codes Coding ([id number]) Nebulizer Treatment - Nebulizer Treatment, initial or subsequent: 10903- Nebulizer/MDI RX initial, or Nebulizer Subsequent Treatment ([id number])
[2023-04-03 11:34] VITALS: PULSE 107; O2SAT 98
== END 2023-04-03 10:13 | disposition home or self-care (01) ==
LOC: HO.HPSW 08:38
PROVIDERS: PCP Nurse Practitioner Family; Visit Provider Nurse Practitioner Family
DX: J45.909 Unspecified asthma, uncomplicated (principal); R06.00 Dyspnea, unspecified
CPT/HCPCS: 94618; 99204

== ENCOUNTER → 2023-04-03 08:38 | Outpatient (BNVA) | payer MEDICARE, SELFPAY | PROVIDERS: PCP Nurse Practitioner Family; Visit Provider Nurse Practitioner Family | DX: J45.909 Unspecified asthma, uncomplicated (principal); R06.00 Dyspnea, unspecified; R05.2 Subacute cough | CPT/HCPCS: 94618; 94640; 99202 ==

== ENCOUNTER 2023-04-03 10:31 | Outpatient (REF) | payer MEDICARE, SELFPAY ==
[2023-04-03 14:02] LABS: MANUAL DIFF FLAG NO
[2023-04-03 14:10] LABS: Hematocrit 31.2 % (37.0-47.0); Hemoglobin 10.2 g/dl (12.0-16.0); Imm Gran Abs Auto 0.02 X10*3/uL (0.00-0.03); Imm Gran Pct Auto 0.5 % (0.0-0.4); Lymphocytes Absolute Auto 0.3 X10*3/uL (1.2-4.9); Lymphocytes Percent Auto 7.9 % (20-40); Mean Corpuscular HGB Conc 32.7 g/dl (31.0-35.0); Mean Corpuscular Hemoglobin 31.4 pg (27.0-33.0); Mean Platelet Volume 12.5 fL (9.4-12.3); Monocytes Absolute Auto 0.4 X10*3/uL (0.1-1.2); Monocytes Percent Auto 8.8 % (2-11); Neutrophils Absolute Auto 3.5 x10*3/uL (2.0-8.3); Neutrophils Percent Auto 82.8 % (45-73); Platelet Count 202 X10*3/uL (160-400); Red Blood Count 3.25 X10*6/uL (4.20-5.50); Red Cell Distribution Width 14.3 % (11.0-16.0); White Blood Count 4.2 X10*3/uL (4.8-10.8)
== END 2023-04-03 10:32 | disposition home or self-care (01) ==
LOC: HO.WFDLDS 10:31
PROVIDERS: Visit Provider Nurse Practitioner Family
DX: R05.9 Cough, unspecified (principal); Z91.09 Other allergy status, other than to drugs and biological substances
CPT/HCPCS: 36415; 82785; 85025; 86003

== ENCOUNTER 2023-04-05 10:46 | Outpatient (AMB) | payer MEDICARE, SELFPAY ==
[2023-04-05 10:52] VITALS: BP 106/60; PULSE 107; TEMP 36.3; O2SAT 97; BMI 19.9
--- NOTE | 2023-04-05 10:52 | A.OFFVIS_ITS ---
Intake Vital Signs 3 04/05/23 10:52 Height 5 ft Weight 101 lb 13.657 oz BMI 19.9 BP 106/60 Blood Pressure Location Rt brachial Position Sitting Pulse 107 H Pulse Source Pulse Oximeter Temp 97.4 F Temp Source Skin Pulse Oximetry (%) 97 Intake Visit Reasons: sle Intake Note: New pt presents today for consult. Reports lung problem, following with dale Roberts. Reports rash on bl arms, has appt with Derm scheduled for May. Parish Worker Required: No Accompanied by: Self / Same As Patient Allergies Penicillins Allergy (Verified 04/05/23 10:54) Chest Pain Sulfa (Sulfonamide Antibiotics) Allergy (Verified 04/05/23 10:54) Chest Pain Medication List - Last Reconciled 04/05/23 by Jayro Sam MD acyclovir 400 mg PO BID 90 days albuterol sulfate 90 mcg/actuation (Ventolin HFA) 2 puffs inhalation Q4-6H PRN 30 days alendronate 70 mg PO QWEEK 90 days atorvastatin 10 mg PO DAILY 90 days azathioprine 25 mg (1/2 x 50 mg) PO DAILY 90 days esomeprazole magnesium 20 mg PO DAILY fluticasone propion-salmeterol 115-21 mcg/actuation (Advair HFA) 2 puffs inhalation Q12H fluticasone propionate 44 mcg/actuation (Flovent HFA) inhalation hydroxyzine HCl 10 mg PO BEDTIME PRN ipratropium-albuterol 0.5 mg-3 mg(2.5 mg base)/3 mL 3 mL inhalation Q6-8H PRN oxybutynin chloride 5 mg PO BID 90 days sennosides (senna) 17.2 mg (2 x 8.6 mg) PO DAILY PRN 90 days sucralfate 1 g PO QID 90 days warfarin 4 mg PO DAILY 90 days HPI HPI Comments 2 History of Present Illness0 Details This is a 57-year-old female with a past medical history of lupus who presents as a new patient. Patient is from [place] and she used to follow-up with supervisor buffing and pasting Dr. grimes for years. She stated that she was diagnosed with lupus as a child. 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 She had an IVC filter placed and was started on Coumadin. Coumadin was discontinued which led to development of right lower extremity DVT. She had been on Coumadin consistently for more than a decade. She had been on azathioprine since at least 2005. She was taking 50 mg daily and this was reduced to 25 mg daily in 2019. Moved to [place] a few years ago and did not establish regular care with a supervisor buffing and pasting. Her complaint today is rash on both forearms and chest that started in June. The rashes sometimes itchy. Not necessarily better or worse in the sun. She was prescribed ketoconazole cream by her PCP without improvement. Betamethasone cream was somewhat helpful but did not take the rash away. He denies any other complaints today. Denies any mouth ulcers denies any blood or froth in urine. Denies fevers or weight loss. No history of recurrent miscarriages. [facility] Medical History (Updated 04/05/23 @ 11:55 by Jayro Sam MD) Osteopenia Gastritis Hyperlipemia Hypocalcemia Acid reflux Gallbladder & bile duct stone with obstruction Lupus Neuropathy Osteoporosis Pulmonary embolism DVT (deep venous thrombosis) SLE (systemic lupus erythematosus) Kidney stones (~12/06/04) Hernia of abdominal wall (~08/08/06) FH: cholecystectomy (~05/08/14) Surgical History S/P IVC filter H/O splenectomy (~08/08/05) Family History Father Colon cancer Lupus AA (alcohol abuse) Heart disease Mother COVID, Onset Age: 82 Sister COVID Maternal Grandfather Myocardial infarction Maternal Grandmother Malignant melanoma Social History Household Members: Spouse Housing: House Patient Tobacco Use Status: Never used Tobacco e-Cigarette/Vaping Use: Never Used Substance Use Type: Caffiene service: No Current occupational status: retired and disabled Current occupational exposures/hazards: No Gender identity: Female Cognitive needs: No Hearing needs: No Vision needs: No Female Reproductive History Menstrual Total pregnancies: 1 Full term: 1 Review of Systems Const Denies fatigue, Denies fever(s) and Denies weight loss Musc Denies arthralgias Skin/Breast Reports pruritus and Reports rash Endo Denies fatigue Physical Exam Vital Signs: Last Vital Signs Temp 97.4 F 04/05/23 10:52 Pulse 107 H 04/05/23 10:52 BP 106/60 04/05/23 10:52 Pulse Ox 97 04/05/23 10:52 BMI result Body Mass Index 19.9 Const General: cooperative, healthy appearing and comfortable Nutritional Appearance: average body habitus Orientation/consciousness: patient oriented x3 Limitations: no limitations HEENT Head: Yes normocephalic and Yes atraumatic Mouth: moist mucous membranes Resp Effort & Inspection: normal respiratory effort and able to speak in complete sentences Auscultation: clear to auscultation bilaterally Cardio Rate: regular rate Rhythm: regular rhythm GI Inspection: No distended Palpation (GI): Soft to palpation Skin Other: Neuro General: patient oriented x3 Extrem Other: Osteoarthritic changes of both hands with no active synovitis Normal nailfold capillaroscopy Results Reviewed Results Reviewed: Labs 06/2021? Lipid panel unremarkable? INR 2.5? CMP unremarkable? Labs 04/2022? Ferritin 207 (15-200) Serum iron 53 (35-150) TIBC 261 (250-450) Iron saturation 20.3 % WBC 3.53? ?380 lymphocytes and 2.85 neutrophil Hemoglobin 10.9.? 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 Patient's rash did not improve with ketoconazole cream, she had some improvement with betamethasone cream. 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 Patient has an appointment with Dermatology in 2 months. Advised patient to ask them to send me records. We discussed hydroxychloroquine. Patient is hesitant to start. Will retrieve records from patient's previous supervisor buffing and pasting Dr. Theo Grimes. Check SLE activity labs Follow-up in 4 months Plan I spent 46 minutes reviewing patient's chart, evaluating patient, ordering diagnostic workup, counseling patient and documenting in the chart Orders: Orders 2 CIPRIANO Reflex Titer and Pattern Today M32.9 - Systemic lupus erythematosus, unspecified Complement C3 Today M32.9 - Systemic lupus erythematosus, unspecified Complement C4 Today M32.9 - Systemic lupus erythematosus, unspecified Erythrocyte Sedimentation Rate Today M32.9 - Systemic lupus erythematosus, unspecified Protein Creatinine Ratio, Ur Today M32.9 - Systemic lupus erythematosus, unspecified Sjogren's Antibodies Today M32.9 - Systemic lupus erythematosus, unspecified Complete Blood Count Auto Diff Today M32.9 - Systemic lupus erythematosus, unspecified Comprehensive Met. Panel Today M32.9 - Systemic lupus erythematosus, unspecified T Spot TB Today Z11.7 - Encounter for testing for latent tuberculosis infection Hepatitis A,B,C Profile Today Z11.59 - Encounter for screening for other viral diseases Rheumatoid Factor Today M32.9 - Systemic lupus erythematosus, unspecified Cardiolipin Antibodies Today I82.409 - Acute embolism and thrombosis of unspecified deep veins of unspecified lower extremity Lupus Anticoagulant Panel Today I82.409 - Acute embolism and thrombosis of unspecified deep veins of unspecified lower extremity Anti Extractable Nuclear Ag Today M32.9 - Systemic lupus erythematosus, unspecified Anti DNA DS Antibody Today M32.9 - Systemic lupus erythematosus, unspecified C Reactive Protein Today M32.9 - Systemic lupus erythematosus, unspecified UA w Microscopic Today M32.9 - Systemic lupus erythematosus, unspecified Cyclic Citrullinated Peptide Today M32.9 - Systemic lupus erythematosus, unspecified Beta-2 Glycoprotein Antibody Today I82.409 - Acute embolism and thrombosis of unspecified deep veins of unspecified lower extremity Coding Level of Care Code New Pt Level 4 (82788) Diagnoses Systemic lupus erythematosus with other organ involvement, unspecified SLE type M32.19 Systemic lupus erythematosus type: unspecified Systemic lupus erythematosus organ involvement: other
== END 2023-04-05 11:42 | disposition home or self-care (01) ==
PROVIDERS: PCP Nurse Practitioner Family; Visit Provider Student in an Organized Health Care Education/Training Program
DX: M32.19 Other organ or system involvement in systemic lupus erythematosus (principal)
CPT/HCPCS: 99204

== ENCOUNTER → 2023-04-05 10:46 | Outpatient (BNVA) | payer MEDICARE, SELFPAY | PROVIDERS: PCP Nurse Practitioner Family; Visit Provider Student in an Organized Health Care Education/Training Program ==

== ENCOUNTER 2023-04-06 08:38 | Outpatient (REF) | payer MEDICARE, SELFPAY ==
[2023-04-06 11:11] LABS: MANUAL DIFF FLAG NO
[2023-04-06 11:22] LABS: Appearance Urine Clear; Color Urine Dark Yellow; Glucose Urine UA Negative (Negative); Leukocyte Esterase Urine Negative (Negative); Nitrite Urine Negative (Negative); PH 5.5 (5.0-9.0); Specific Gravity - Urine 1.025 (1.005-1.025); UMIC TRIGGER UA YES; Urine Blood Negative (Negative); Urine Ketones Negative (Negative); Urine Protein 30 (1+) mg/dL (Neg-Trace)
[2023-04-06 11:28] LABS: Basophils Percent Auto 0.2 % (0-2); Eosinophils Percent Auto 0.2 % (0-4); Hematocrit 27.4 % (37.0-47.0); Hemoglobin 8.9 g/dl (12.0-16.0); Imm Gran Abs Auto 0.01 X10*3/uL (0.00-0.03); Imm Gran Pct Auto 0.2 % (0.0-0.4); Lymphocytes Absolute Auto 0.3 X10*3/uL (1.2-4.9); Lymphocytes Percent Auto 6.4 % (20-40); Mean Corpuscular HGB Conc 32.5 g/dl (31.0-35.0); Mean Corpuscular Hemoglobin 31.6 pg (27.0-33.0); Mean Corpuscular Volume 97.2 fL (80.0-98.0); Monocytes Absolute Auto 0.4 X10*3/uL (0.1-1.2); Monocytes Percent Auto 7.6 % (2-11); Neutrophils Absolute Auto 4.3 x10*3/uL (2.0-8.3); Neutrophils Percent Auto 85.4 % (45-73); Platelet Count 208 X10*3/uL (160-400); Red Blood Count 2.82 X10*6/uL (4.20-5.50); Red Cell Distribution Width 14.4 % (11.0-16.0)
[2023-04-06 11:47] LABS: Bacteria Urine None Seen (None Seen); Calcium Oxalate Crystals Urine Present; Hyaline Casts Urine 0-2 /LPF (0-2); RBC Urine 0-2 /HPF (0-2); Squamous Epithelial Cell Urine 0-2 /HPF (0-2); WBC Urine 0-5 /HPF (0-5)
[2023-04-06 12:05] LABS: Erythrocyte Sedimentation Rate 102 MM/HR (0-20)
[2023-04-06 12:20] LABS: Alanine Aminotransferase 16 U/L (0-31); Albumin Level 3.7 g/dL (3.5-5.0); Alkaline Phosphatase 67 U/L (39-117); Anion Gap 12 (12-20); Aspartate Amino Transferase 36 U/L (5-31); Bilirubin Total 0.3 mg/dL (0.0-1.0); Blood Urea Nitrogen 14 mg/dL (9-16); C Reactive Protein 1.82 mg/dL (< or = 0.50); Calcium 9.4 mg/dL (8.4-10.2); Carbon Dioxide 24 mmol/L (22-29); Chloride 107 mmol/L (96-108); Estimated Glomerular Filt Rate > 60; Glucose Random 93 mg/dL (60-115); Potassium 3.2 mmol/L (3.3-5.1); Sodium 140 mmol/L (135-145); Total Protein 8.2 g/dL (6.5-8.0)
[2023-04-06 12:57] LABS: Rheumatoid Factor < 13.0 IU/mL (<15.0)
[2023-04-06 13:30] LABS: Creatinine Urine 162.58 mg/dL; Protein/Creatinine Ratio, Ur 0.72 (<0.2); Total Protein Urine Random 117 mg/dL (<12)
[2023-04-07 08:13] LABS: HBS Num1 0.34 mIU/mL (0-7.99); HBc Num1 0.19 S/CO (0.00-0.79); HBsAGNum1 0.37 S/CO (0.00-0.99); Hepatitis A Antibody IgM 0.19 Index (0-0.79); Hepatitis B Core Antibody Nonreactive (Nonreactive); Hepatitis B Surface Antigen Negative (Negative); ~Hepatitis A Antibody IgM Nonreactive (Nonreactive); ~Hepatitis B Surface Antibody NONREACTIVE (Nonreactive); ~Hepatitis C Antibody Nonreactive (Nonreactive)
[2023-04-07 13:33] LABS: Anti DNA DS Antibody 76 IU/mL; Antibody to SS-A Antigen 3.5 POS AI (<1.0 NEG); Antibody to SS-B Antigen <1.0 NEG AI (<1.0 NEG); SM/Ribonucleoprotein Ab <1.0 NEG AI (<1.0 NEG); Smith Protein <1.0 NEG AI (<1.0 NEG)
[2023-04-07 20:53] LABS: Complement C3 73 mg/dL (83-193)
[2023-04-09 11:04] LABS: Cyclic Citrullinated Peptide <16 UNITS
[2023-04-11 14:29] LABS: Beta-2 Glycoprotein IgA 4.9 U/mL (<20.0); Beta-2 Glycoprotein IgG <2.0 U/mL (<20.0); Beta-2 Glycoprotein IgM <2.0 U/mL (<20.0)
[2023-04-12 12:29] LABS: Cardiolipin IgG Ab <2.0 GPL-U/mL; Cardiolipin IgM Ab <2.0 MPL-U/mL
[2023-04-12 15:18] LABS: Anti Nuclear Antibody Pattern Nuclear, Homogeneous; Anti Nuclear Antibody Screen POSITIVE (NEGATIVE)
[2023-04-12 23:32] LABS: DRVVT Confirmation Negative (Negative); Hexagonal Phase Neutralization Weak Positive (Negative); PTT (LAC) Screen 60 sec (<=40); Thrombin Clotting Time 20 sec (13-19)
== END 2023-04-06 08:39 | disposition home or self-care (01) ==
LOC: HO.WFDLDS 08:38
PROVIDERS: Visit Provider Student in an Organized Health Care Education/Training Program
DX: M32.9 Systemic lupus erythematosus, unspecified (principal); I82.409 Acute embolism and thrombosis of unspecified deep veins of unspecified lower extremity; Z11.59 Encounter for screening for other viral diseases; Z11.7 Encounter for testing for latent tuberculosis infection; Z72.89 Other problems related to lifestyle
CPT/HCPCS: 36415; 80053; 81001; 82570; 84156; 85025; 85597; 85598; 85613; 85652; 85670; 85730; 86038; 86039; 86140; 86146; 86147; 86160; 86200; 86225; 86235; 86431; 86481; 86704; 86706; 86709; 86803; 87340

== ENCOUNTER 2023-04-21 14:20 | Outpatient (AMB) | payer MEDICARE, SELFPAY ==
[2023-04-21 14:39] VITALS: BP 110/60; PULSE 82
--- NOTE | 2023-04-21 14:39 | HO.NEPHOV ---
HPI HPI Comments History of Present Illness Details Had the privilege of seeing Stephanie in consultation for H/O M/S hematuria and proteinuria on a back drop of SLE. She has lupus for a long time. She had had multiple medication changes but feels her symptomatology of lupus including skin rashes are better with recent changes in immunosuppression. She does not have any macroscopic hematuria, edema, SOB, PND, orthopnea, GI symptoms, hemoptysis, melena. She has H/O DVT and had a IV filter. She denied H/O miscarriages or H/O APLA. She remains on anti coagulation. She does not take excess NSAID's. She has had H/O renal stones in the past. She has some frequency of micturition without any supra pubic pain, nausea, vomiting or fever. [facility] Medical History (Updated 04/21/23 @ 15:05 by Reinier Summers MD) Osteopenia Gastritis Hyperlipemia Hypocalcemia Acid reflux Gallbladder & bile duct stone with obstruction Lupus Neuropathy Osteoporosis Pulmonary embolism DVT (deep venous thrombosis) SLE (systemic lupus erythematosus) Kidney stones (~12/06/04) Hernia of abdominal wall (~08/08/06) FH: cholecystectomy (~05/08/14) Surgical History S/P IVC filter H/O splenectomy (~08/08/05) Family History Father Colon cancer Lupus AA (alcohol abuse) Heart disease Mother COVID, Onset Age: 82 Sister COVID Maternal Grandfather Myocardial infarction Maternal Grandmother Malignant melanoma Social History Household Members: Spouse Housing: House Patient Tobacco Use Status: Never used Tobacco e-Cigarette/Vaping Use: Never Used Substance Use Type: Caffiene service: No Current occupational status: retired and disabled Current occupational exposures/hazards: No Gender identity: Female Cognitive needs: No Hearing needs: No Vision needs: No Assessment & Plan Assessment & Plan (1) Lupus nephritis: Code(s): M32.14 - Glomerular disease in systemic lupus erythematosus (2) Dysuria: Code(s): R30.0 - Dysuria Plan Renal functions normal Had some RBC and protein Currently on immunosuppression BP at goal; Hemodynamics stable Volume status optimal On anti coagulation urine for culture ordered 24 hour urine for protein ordered All questions answered Follow up given TIme spent reviewing data/pt encounter/ documentation 1 hour Orders: Orders Protein, 24 Hr Urine Group Today M32.14 - Glomerular disease in systemic lupus erythematosus Urine Culture 04/21/23 M32.14 - Glomerular disease in systemic lupus erythematosus Coding Level of Care Code New Pt Level 5 (65701) Diagnoses Lupus nephritis M32.14 Dysuria R30.0
== END 2023-04-21 15:24 | disposition home or self-care (01) ==
LOC: HO.HKA 14:20
PROVIDERS: PCP Nurse Practitioner Family; Referring Provider Student in an Organized Health Care Education/Training Program; Visit Provider Internal Medicine Nephrology
DX: M32.14 Glomerular disease in systemic lupus erythematosus (principal); R30.0 Dysuria
CPT/HCPCS: 99205

== ENCOUNTER 2023-04-21 14:20 | Outpatient (REF) | payer MEDICARE, SELFPAY ==
[2023-04-21 16:26] LABS: Appearance Urine Clear; Color Urine Yellow; Glucose Urine UA Negative (Negative); Leukocyte Esterase Urine Negative (Negative); Nitrite Urine Negative (Negative); PH 5.5 (5.0-9.0); Urine Blood Negative (Negative); Urine Ketones Negative (Negative); Urine Protein Negative (Neg-Trace)
== END 2023-04-21 14:21 | disposition home or self-care (01) ==
LOC: HO.LAB 14:20
PROVIDERS: PCP Nurse Practitioner Family; Referring Provider Student in an Organized Health Care Education/Training Program; Visit Provider Internal Medicine Nephrology
DX: M32.14 Glomerular disease in systemic lupus erythematosus (principal); R53.83 Other fatigue; R31.9 Hematuria, unspecified; R80.9 Proteinuria, unspecified; R30.0 Dysuria
CPT/HCPCS: 81003; 87086; 99202

== ENCOUNTER 2023-04-24 11:13 | Outpatient (REF) | payer MEDICARE, SELFPAY ==
[2023-04-24 14:10] LABS: Total Volume 24 Hour Urine 1300 mL
[2023-04-24 14:24] LABS: Creatinine, 24Hr Urine 0.7 G/Day (1.0-2.0); Creatinine, mg/dL 56.37; Protein 24 Hr Urine < 91 mg/Day (<150); Protein mg/dL 7 mg/dL
== END 2023-04-24 11:14 | disposition home or self-care (01) ==
LOC: HO.LNP 11:13
PROVIDERS: Visit Provider Internal Medicine Nephrology
DX: M32.14 Glomerular disease in systemic lupus erythematosus (principal)
CPT/HCPCS: 84156

== ENCOUNTER 2023-05-16 08:58 | Outpatient (AMB) | payer MEDICARE, SELFPAY ==
--- NOTE | 2023-05-16 09:09 | A.OFFVIS_ITS ---
Intake Vital Signs 05/16/23 09:10 Height 5 ft Weight 101 lb 6.602 oz BMI 19.8 BP 108/64 Blood Pressure Location Rt brachial Position Sitting Pulse 83 Pulse Source Pulse Oximeter Temp 97.1 F Temp Source Skin Pulse Oximetry (%) 97 Oxygen Delivery Method Room Air Intake Visit Reasons: SLE Intake Note: Pt last seen 04/05/23, presents today for follow up. States she feels great on Plaquenil, cough is resolved. Food Preparation Kitchen Aide Required: No Accompanied by: Self / Same As Patient Allergies Penicillins Allergy (Verified 05/16/23 09:13) Chest Pain Sulfa (Sulfonamide Antibiotics) Allergy (Verified 05/16/23 09:13) Chest Pain Medication List - Last Reconciled 05/16/23 by Jayro Sam MD acyclovir 400 mg PO BID 90 days alendronate 70 mg PO QWEEK 90 days atorvastatin 10 mg PO DAILY 90 days azathioprine 50 mg PO DAILY esomeprazole magnesium 20 mg PO DAILY hydroxychloroquine 200 mg PO DAILY hydroxyzine HCl 10 mg PO BEDTIME PRN oxybutynin chloride 5 mg PO BID 90 days sennosides (senna) 17.2 mg (2 x 8.6 mg) PO DAILY PRN 90 days sucralfate 1 g PO QID 90 days warfarin 4 mg PO DAILY 90 days HPI HPI Comments History of Present Illness Details 58-year-old female with SLE returns for follow-up. Patient states that she is feeling much better overall. She started hydroxychloroquine 200 mg daily and increased her azathioprine to 50 mg daily last visit. States that she feels much better overall. The rashes on her forearms and chest are significantly improved. The cough resolved. Fatigue and energy much improved. Initial history: This is a 57-year-old female with a past medical history of lupus who presents as a new patient. Patient is from [place] and she used to follow-up with illuminator Dr. yu for years. She stated that she was di agnosed with lupus as a child. 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 She had an IVC filter placed and was started on Coumadin. Coumadin was discontinued which led to development of right lower extremity DVT. She had been on Coumadin consistently for more than a decade. She had been on azathioprine since at least 2005. She was taking 50 mg daily and this was reduced to 25 mg daily in 2019. Moved to [place] a few years ago and did not establish regular care with a illuminator. Her complaint today is rash on both forearms and chest that started in June. The rashes sometimes itchy. Not necessarily better or worse in the sun. She was prescribed ketoconazole cream by her PCP without improvement. Betamethasone cream was somewhat helpful but did not take the rash away. He denies any other complaints today. Denies any mouth ulcers denies any blood or froth in urine. Denies fevers or weight loss. No history of recurrent miscarriages. Records from patient's previous illuminator Dr. Yu finally received 04/2023: Patient was initially diagnosed with ITP in 2005 and had a splenectomy, followed by DVT and IVC filter placement. At that time also she had skin rashes that were attributed to SLE. She was intermittently on hydroxychloroquine. 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 She required oxycodone and fentanyl patch. This was treated with prednisone, hydroxychloroquine and azathioprine. With good results. She was eventually weaned off pain killers. She was off Medrol since 2019 [facility] Medical History Osteopenia Gastritis Hyperlipemia Hypocalcemia Acid reflux Gallbladder & bile duct stone with obstruction Lupus Neuropathy Osteoporosis Pulmonary embolism DVT (deep venous thrombosis) SLE (systemic lupus erythematosus) Kidney stones (~12/06/04) Hernia of abdominal wall (~08/08/06) FH: cholecystectomy (~05/08/14) Surgical History S/P IVC filter H/O splenectomy (~08/08/05) Family History Father Colon cancer Lupus AA (alcohol abuse) Heart disease Mother COVID, Onset Age: 82 Sister COVID Maternal Grandfather Myocardial infarction Maternal Grandmother Malignant melanoma Household Members: Spouse Housing: House Patient Tobacco Use Status: Never used Tobacco e-Cigarette/Vaping Use: Never Used Substance Use Type: Caffiene service: No Current occupational status: retired and disabled Current occupational exposures/hazards: No Gender identity: Female Cognitive needs: No Hearing needs: No Vision needs: No Review of Systems Const Denies fatigue, Denies fever(s) and Denies weakness Resp Denies cough Musc Denies arthralgias Skin/Breast Details: Rash is improving Neuro Denies weakness Endo Denies fatigue Physical Exam Vital Signs: Last Vital Signs Temp 97.1 F 05/16/23 09:10 Pulse 83 05/16/23 09:10 BP 108/64 05/16/23 09:10 Pulse Ox 97 05/16/23 09:10 Oxygen Delivery Method Room Air 05/16/23 09:10 BMI result Body Mass Index 19.8 Const General: cooperative, healthy appearing and comfortable Nutritional Appearance: average body habitus Orientation/consciousness: patient oriented x3 Limitations: no limitations HEENT Head: Yes normocephalic and Yes atraumatic Mouth: moist mucous membranes Resp Effort & Inspection: normal respiratory effort and able to speak in complete sentences Auscultation: clear to auscultation bilaterally Cardio Rate: regular rate Rhythm: regular rhythm GI Inspection: No distended Palpation (GI): Soft to palpation Neuro General: patient oriented x3 Extrem Other: Osteoarthritic changes of both hands with no active synovitis Normal nailfold capillaroscopy Results Reviewed Results Reviewed: Labs 06/2021? Lipid panel unremarkable? INR 2.5? CMP unremarkable? Labs 04/2022? Ferritin 207 (15-200) Serum iron 53 (35-150) TIBC 261 (250-450) Iron saturation 20.3 % WBC 3.53? ?380 lymphocytes and 2.85 neutrophil Hemoglobin 10.9.? 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 Doing much better since hydroxychloroquine 200 mg daily was started. Continue azathioprine 50 mg daily Check SLE disease activity labs. If patient continues to have significantly elevated inflammatory markers, will consider starting Medrol taper (2) Long-term use of hydroxychloroquine: Code(s): Z79.899 - Other equipment operator intermodal yard (current) drug therapy Plan: Advised patient to schedule an appointment with an tugboat captain Plan I spent 26 minutes reviewing patient's chart, evaluating patient, ordering diagnostic workup, counseling patient and documenting in the chart Orders: Orders Complement C3 Today M32.9 - Systemic lupus erythematosus, unspecified Complement C4 Today M32.9 - Systemic lupus erythematosus, unspecified Complete Blood Count Auto Diff Today M32.9 - Systemic lupus erythematosus, unspecified Comprehensive Met. Panel Today M32.9 - Systemic lupus erythematosus, unspecified Complement C3 3 Months M32.9 - Systemic lupus erythematosus, unspecified Erythrocyte Sedimentation Rate Today M32.9 - Systemic lupus erythematosus, unspecified UA w Microscopic 3 Months M32.9 - Systemic lupus erythematosus, unspecified Comprehensive Met. Panel 3 Months M32.9 - Systemic lupus erythematosus, un specified Anti DNA DS Antibody Today M32.9 - Systemic lupus erythematosus, unspecified Anti DNA DS Antibody 3 Months M32.9 - Systemic lupus erythematosus, unspecified Complement C4 3 Months M32.9 - Systemic lupus erythematosus, unspecified Protein Creatinine Ratio, Ur 3 Months M32.9 - Systemic lupus erythematosus, unspecified Complete Blood Count Auto Diff 3 Months M32.9 - Systemic lupus erythematosus, unspecified Protein Electrophoresis,Ran Ur 3 Months M32.9 - Systemic lupus erythematosus, unspecified Lupus Anticoagulant Panel 3 Months M32.9 - Systemic lupus erythematosus, unspecified Coding Level of Care Code Est Pt Level 4 (38033) Diagnoses Systemic lupus erythematosus with other organ involvement, unspecified SLE type M32.19 Systemic lupus erythematosus type: unspecified Systemic lupus erythematosus organ involvement: other Long-term use of hydroxychloroquine Z79.899
[2023-05-16 09:10] VITALS: BP 108/64; PULSE 83; TEMP 36.2; O2SAT 97; BMI 19.8
== END 2023-05-16 09:48 | disposition home or self-care (01) ==
PROVIDERS: PCP Nurse Practitioner Family; Visit Provider Student in an Organized Health Care Education/Training Program
DX: M32.19 Other organ or system involvement in systemic lupus erythematosus (principal); Z79.899 Other long term (current) drug therapy
CPT/HCPCS: 99214

== ENCOUNTER → 2023-05-16 08:58 | Outpatient (BNVA) | payer MEDICARE, SELFPAY | PROVIDERS: PCP Nurse Practitioner Family; Visit Provider Student in an Organized Health Care Education/Training Program | DX: M32.19 Other organ or system involvement in systemic lupus erythematosus (principal); Z79.899 Other long term (current) drug therapy | CPT/HCPCS: 99212 ==

== ENCOUNTER 2023-05-16 09:51 | Outpatient (REF) | payer MEDICARE, SELFPAY ==
[2023-05-16 10:46] LABS: MANUAL DIFF FLAG NO
[2023-05-16 10:52] LABS: Basophils Percent Auto 0.3 % (0-2); Eosinophils Percent Auto 1.3 % (0-4); Hematocrit 32.7 % (37.0-47.0); Hemoglobin 10.3 g/dl (12.0-16.0); Lymphocytes Absolute Auto 0.4 X10*3/uL (1.2-4.9); Lymphocytes Percent Auto 12.1 % (20-40); Mean Corpuscular HGB Conc 31.5 g/dl (31.0-35.0); Mean Corpuscular Hemoglobin 31.2 pg (27.0-33.0); Mean Corpuscular Volume 99.1 fL (80.0-98.0); Mean Platelet Volume 10.9 fL (9.4-12.3); Monocytes Absolute Auto 0.3 X10*3/uL (0.1-1.2); Monocytes Percent Auto 10.4 % (2-11); Neutrophils Absolute Auto 2.3 x10*3/uL (2.0-8.3); Neutrophils Percent Auto 75.9 % (45-73); Platelet Count 334 X10*3/uL (160-400); Red Cell Distribution Width 14.6 % (11.0-16.0)
[2023-05-16 11:09] LABS: Alanine Aminotransferase 22 U/L (0-31); Alkaline Phosphatase 66 U/L (39-117); Anion Gap 9 (12-20); Aspartate Amino Transferase 37 U/L (5-31); Bilirubin Total 0.3 mg/dL (0.0-1.0); Blood Urea Nitrogen 13 mg/dL (9-16); Calcium 8.7 mg/dL (8.4-10.2); Carbon Dioxide 28 mmol/L (22-29); Chloride 107 mmol/L (96-108); Estimated Glomerular Filt Rate > 60; Glucose Random 87 mg/dL (60-115); Potassium 3.7 mmol/L (3.3-5.1); Sodium 140 mmol/L (135-145); Total Protein 8.4 g/dL (6.5-8.0)
[2023-05-17 10:29] LABS: Complement C3 70 mg/dL (83-193)
[2023-05-17 12:53] LABS: Anti DNA DS Antibody 84 IU/mL
== END 2023-05-16 09:52 | disposition home or self-care (01) ==
LOC: HO.10HDL 09:51
PROVIDERS: Visit Provider Student in an Organized Health Care Education/Training Program
DX: M32.9 Systemic lupus erythematosus, unspecified (principal)
CPT/HCPCS: 36415; 80053; 85025; 86160; 86225

== ENCOUNTER 2023-05-24 11:36 | Outpatient (AMB) | payer MEDICARE, SELFPAY ==
--- NOTE | 2023-05-24 12:03 | HO.NEPHOV ---
HPI HPI Comments History of Present Illness Details I had the privilege of seeing Stephanie in follow up of her H/O M/S hematuria and proteinuria on a back drop of SLE. She has lupus for a long time. She had had multiple medication changes but feels her symptomatology of lupus including skin rashes are better with recent changes in immunosuppression. She does not have any macroscopic hematuria, edema, SOB, PND, orthopnea, GI symptoms, hemoptysis, melena. She has H/O DVT and had a IVC filter. She denied H/O miscarriages or H/O APLA. She remains on anti coagulation. She does not take excess NSAID's. She has had H/O renal stones in the past. She feels well. [facility], [facility] Medical History Osteopenia Gastritis Hyperlipemia Hypocalcemia Acid reflux Gallbladder & bile duct stone with obstruction Lupus Neuropathy Osteoporosis Pulmonary embolism DVT (deep venous thrombosis) SLE (systemic lupus erythematosus) Kidney stones (~12/06/04) Hernia of abdominal wall (~08/08/06) FH: cholecystectomy (~05/08/14) Surgical History S/P IVC filter H/O splenectomy (~08/08/05) Family History Father Colon cancer Lupus AA (alcohol abuse) Heart disease Mother COVID, Onset Age: 82 Sister COVID Maternal Grandfather Myocardial infarction Maternal Grandmother Malignant melanoma Social History Household Members: Spouse Housing: House Patient Tobacco Use Status: Never used Tobacco e-Cigarette/Vaping Use: Never Used Substance Use Type: Caffiene service: No Current occupational status: retired and disabled Current occupational exposures/hazards: No Gender identity: Female Cognitive needs: No Hearing needs: No Vision needs: No Vital Signs 05/24/23 12:04 Height 5 ft Weight 100 lb 6 oz BMI 19.6 BP 104/60 Blood Pressure Location Rt brachial Position Sitting Pulse 83 Pulse Source Pulse Oximeter Physical Exam Vital Signs: Last Vital Signs Pulse 83 05/24/23 12:04 BP 104/60 12/06/23 12:04 BMI result Body Mass Index 19.6 Const General: comfortable and no acute distress Orientation/consciousness: patient oriented x3 HEENT Head: Yes normocephalic Mouth: Normal oral and palatal mucosa present Eyes EOM: EOMs intact bilaterally Neck Neck: Yes supple Resp Auscultation: clear to auscultation bilaterally Cardio Jugular venous distension: no JVD Rate: regular rate GI Palpation (GI): Soft to palpation Auscultation: normal bowel sounds General: Yes no CVA tenderness Back/Spine/Pelvis Back: no CVA tenderness Skin General skin exam: no rashes or lesions noted Neuro General: patient oriented x3 and moves all extremities Extrem General: Yes no pedal edema Assessment & Plan Assessment & Plan (1) SLE (systemic lupus erythematosus): Comment: 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, treated with splenectomy skin rashes 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 (treated with pain killers, azathioprine and Medrol) HCQ restarted 03/2023, AZA increased to 50 mg Code(s): M32.9 - Systemic lupus erythematosus, unspecified Qualifiers: Systemic lupus erythematosus organ involvement: other Systemic lupus erythematosus type: unspecified Qualified Code(s): M32.19 - Other organ or system involvement in systemic lupus erythematosus Plan Renal functions normal No RBC and protein in urine now Currently on immunosuppression BP at goal; Hemodynamics stable Volume status optimal On anti coagulation 24 hour urine for protein normal All questions answered Orders: Orders Blood Urea Nitrogen Today M32.9 - Systemic lupus erythematosus, unspecified Calcium Today M32.9 - Systemic lupus erythematosus, unspecified UA and rflx microscopic Today M32.9 - Systemic lupus erythematosus, unspecified Protein Creatinine Ratio, Ur Today M32.9 - Systemic lupus erythematosus, unspecified Electrolytes Today M32.9 - Systemic lupus erythematosus, unspecified Creatinine Today M32.9 - Systemic lupus erythematosus, unspecified Coding Level of Care Code Est Pt Level 3 (99593) Diagnoses Systemic lupus erythematosus with other organ involvement, unspecified SLE type M32.19 Systemic lupus erythematosus organ involvement: other Systemic lupus erythematosus type: unspecified Results Reviewed Nephrology Results: Hgb 10.3 g/dl (12.0-16.0) L 05/16/23 WBC 3.0 X10*3/uL (4.8-10.8) L 05/16/23 Plt Count 334 X10*3/uL (160-400) 05/16/23 Sodium 140 mmol/L (135-145) 05/16/23 Potassium 3.7 mmol/L (3.3-5.1) 05/16/23 Chloride 107 mmol/L (96-108) 05/16/23 Carbon Dioxide 28 mmol/L (22-29) 05/16/23 BUN 13 mg/dL (9-16) 05/16/23 Creatinine 0.70 mg/dL (0.5-1.4) 05/16/23 Calcium 8.7 mg/dL (8.4-10.2) 05/16/23 Urine Protein Negative mg/dL (Neg-Trace) 04/21/23 Urine Creatinine 162.58 mg/dL 04/06/23 Protein/Creatinin Ratio 0.72 (<0.2) H 04/06/23
[2023-05-24 12:04] VITALS: BP 104/60; PULSE 83; BMI 19.6
== END 2023-05-24 12:33 | disposition home or self-care (01) ==
PROVIDERS: PCP Nurse Practitioner Family; Visit Provider Internal Medicine Nephrology
DX: M32.19 Other organ or system involvement in systemic lupus erythematosus (principal)
CPT/HCPCS: 99213

== ENCOUNTER → 2023-05-24 11:36 | Outpatient (BNVA) | payer MEDICARE, SELFPAY | PROVIDERS: PCP Nurse Practitioner Family; Visit Provider Internal Medicine Nephrology | DX: M32.19 Other organ or system involvement in systemic lupus erythematosus (principal) | CPT/HCPCS: 99212 ==

== ENCOUNTER 2023-07-14 09:20 | Outpatient (AMB) | payer MEDICARE, SELFPAY ==
--- NOTE | 2023-07-14 09:28 | A.OFFPC_ITS ---
Vital Signs 07/14/23 09:29 Height 5 ft Weight 101 lb 1 oz BMI 19.7 BP 110/68 Blood Pressure Location Rt brachial Position Sitting Respiration 14 Pulse 86 Pulse Source Pulse Oximeter Temp 97.9 F Temp Source Temporal Artery Scan Pulse Oximetry (%) 99 Oxygen Delivery Method Room Air Intake Visit Reasons: medication/refill follow up Intake Note: Patient needs refill on Alendronate, Senna, and Acyclovir and Azathioprine. Diagnostic Medical Sonographer Required: No Accompanied by: Self / Same As Patient Allergies Penicillins Allergy (Verified 07/14/23 10:04) Chest Pain Sulfa (Sulfonamide Antibiotics) Allergy (Verified 07/14/23 10:04) Chest Pain Medication List - Last Reconciled 07/14/23 by Jayro Bustillo CNP acyclovir 400 mg PO BID 90 days alendronate 70 mg PO QWEEK 90 days atorvastatin 10 mg PO DAILY 90 days azathioprine 50 mg PO DAILY esomeprazole magnesium 20 mg PO DAILY hydroxychloroquine 200 mg PO DAILY hydroxyzine HCl 10 mg PO BEDTIME PRN methylprednisolone (Medrol) Take 6 tabs by mouth once daily for 1 week then reduce by 1 tab every week then remain on 1 tab daily oxybutynin chloride 5 mg PO BID 90 days sennosides (senna) 17.2 mg (2 x 8.6 mg) PO DAILY PRN 90 days sucralfate 1 g PO QID 90 days warfarin 4 mg PO DAILY 90 days Tobacco use date assessed: 07/14/23 Dental Screening Dental Screen Date: 07/14/23 Did you have a dental visit in the last 12 months?: Yes Did you have a dental problem in the last 6 months where you did not have access to dental care?: No Was dental information given to patient?: Patient has dentist HPI HPI Comments History of Present Illness Details 58-year-old female presents for medicati on refills. She request refill for alendronate, acyclovir, and senna She admits to taking her medications as prescribed without adverse reactions She offers no complaints and denies acute symptoms [facility] Medical History Osteopenia Gastritis Hyperlipemia Hypocalcemia Acid reflux Gallbladder & bile duct stone with obstruction Lupus Neuropathy Osteoporosis Pulmonary embolism DVT (deep venous thrombosis) SLE (systemic lupus erythematosus) Kidney stones (~12/06/04) Hernia of abdominal wall (~08/08/06) FH: cholecystectomy (~05/08/14) Surgical History S/P IVC filter H/O splenectomy (~08/08/05) Family History (Updated 07/14/23 @ 09:41 by Cristiane Oquendo MA) Father Colon cancer Lupus AA (alcohol abuse) Heart disease Mother SIDDHARTHID, Onset Age: 82 Sister COVID Maternal Grandfather Myocardial infarction Maternal Grandmother Malignant melanoma Social History Household Members: Spouse Housing: House Patient Tobacco Use Status: Never used Tobacco e-Cigarette/Vaping Use: Never Used Substance Use Type: Caffiene service: No Current occupational status: retired and disabled Current occupational exposures/hazards: No Gender identity: Female Cognitive needs: No Hearing needs: No Vision needs: No Questionnaire Thrive Questionnaire Date Thrive assessed: 11/24/22 LAWSON-7 AMB Questionnaire LAWSON-7 Date LAWSON - 7 assessed: 11/24/22 Source: Developed by Drs. Mj Cohen, Marianne To, Dennis Bland and colleagues, with an educational carlos from [employer]. Review of Systems Const Details: Const Denies chills, Denies fatigue, Denies fever(s), Denies headache(s) and Denies weakness ENT Denies dizziness and Denies headache(s) Card Denies chest pain, Denies lightheadedness, Denies dyspnea and Denies other (Palpitations) Resp Denies cough, Denies dyspnea, Denies wheezing and Denies other ( shortness of breath) GI Denies abdominal pain, Denies melena, Denies hematochezia, Denies change in bowel habits, Denies dyspepsia and Denies nausea Denies hematuria and Denies dysuria Musc Denies abnormal gait, Denies myalgias, Denies arthralgias, Denies numbness and Denies tingling Skin/Breast Denies rash, Denies unusual bruising and Denies wounds Neuro Denies abnormal gait, Denies dizziness, Denies headache(s), Denies memory loss, Denies numbness, Denies Sensory deficit (Neuro), Denies tingling and Denies weakness Psych Denies anxiety, Denies depression, Denies memory loss Endo Denies cold intolerance, Denies fatigue, Denies heat intolerance, Denies polydipsia and Denies polyuria Aller/Immun Denies wheezing Physical exam (Primary Care) Vital Signs: Last Vital Signs Temp 97.9 F 07/14/23 09:29 Pulse 86 07/14/23 09:29 Resp 14 07/14/23 09:29 BP 110/68 07/14/23 09:29 Pulse Ox 99 07/14/23 09:29 Oxygen Delivery Method Room Air 07/14/23 09:29 BMI result Body Mass Index 19.7 Tobacco/Smoking Status: Tobacco use Status Tobacco use date assessed 07/14/23 07/14/23 09:41 Patient Tobacco Use Status Never used Tobacco 07/14/23 09:41 e-Cigarette/Vaping Use Never Used 07/14/23 09:41 Thrive Assessment: Date of Thrive Assessment Date Thrive assessed 11/24/22 07/14/23 09:41 Const Other: General: no acute distress and well developed Nutritional Appearance: well nourished Orientation/consciousness: patient oriented x3 HENMT Head: Yes normocephalic and Yes atraumatic Eyes General: appearance normal, both eyes and all related structures Pupils: Equal, round and reactive pupils present EOM: EOMs intact bilaterally Resp Effort & Inspection: normal respiratory effort Auscultation: clear to auscultation bilaterally Cardio Rate: regular rate Rhythm: regular rhythm Heart sounds: S1 normal heart sound present, S2 normal heart sound present, no gallops, no murmurs and no rubs GI Palpation (GI): No Abdominal aortic bruit present, Soft to palpation, nontender, No hepatosplenomegaly present and No Rebound tenderness present Auscultation: normal bowel sounds General: Yes no CVA tenderness Back/Spine/Pelvis Back: no CVA tenderness Cervical Spine: cervical ROM normal and No Cervical spine tenderness Thoracic/Lumbar Spine: thoraco-lumbar ROM normal, No pain with thoraco-lumbar ROM, No thoracic spinal tenderness and No lumbar spinal tenderness Extrem General: Yes normal to inspection, No edema and No calf tenderness Skin General: warm and dry. Normal skin color. Normal skin turgor Neuro General: patient oriented x3, gait normal and no focal neuro deficit Cranial nerves: Yes Equal, round and reactive pupils present Cognition (Neuro): normal cognition Gait exam (Neuro): Normal gait present Sensory Exam: No Sensory deficit (Neuro) Psych Appearance: grossly normal Affect: normal affect Attitude: cooperative Thought process: Normal thought process present Assessment and Plan Assessment & Plan (1) Osteoporosis: Comment: 07/02/2020 Code(s): M81.0 - Age-related osteoporosis without current pathological fracture Plan: Medications refilled Continue current treatment regimen Follow-up in 6 months for an extended physical exam Follow-up with specialist as planned Return sooner with symptoms or concerns Verbalized understanding and agreed with treatment plan (2) Hx of herpes simplex infection: Code(s): Z86.19 - Personal history of other infectious and parasitic diseases Plan: No acute symptoms Plan as above Medications: Refilled alendronate 70 mg PO QWEEK 90 days 13 tabs 1RF sennosides (senna) 17.2 mg (2 x 8.6 mg) PO DAILY 90 days PRN 180 tabs 1RF constipation acyclovir 400 mg PO BID 90 days 180 tabs 1RF Coding Level of Care Code Est Pt Level 3 (45646) Diagnoses Osteoporosis M81.0 Hx of herpes simplex infection Z86.19
[2023-07-14 09:29] VITALS: BP 110/68; PULSE 86; RESP 14; TEMP 36.6; O2SAT 99; BMI 19.7
== END 2023-07-14 10:28 | disposition home or self-care (01) ==
PROVIDERS: PCP Nurse Practitioner Family; Visit Provider Nurse Practitioner Family
DX: M81.0 Age-related osteoporosis without current pathological fracture (principal); Z86.19 Personal history of other infectious and parasitic diseases
CPT/HCPCS: 99213

== ENCOUNTER 2023-08-01 07:12 | Outpatient (REF) | payer MEDICARE, SELFPAY ==
[2023-08-01 11:14] LABS: MANUAL DIFF FLAG NO
[2023-08-01 11:22] LABS: Basophils Percent Auto 0.7 % (0-2); Eosinophils Absolute Auto 0.1 X10*3/uL (0.0-0.4); Hematocrit 35.7 % (37.0-47.0); Hemoglobin 11.7 g/dl (12.0-16.0); Imm Gran Abs Auto 0.01 X10*3/uL (0.00-0.03); Imm Gran Pct Auto 0.2 % (0.0-0.4); Lymphocytes Absolute Auto 0.4 X10*3/uL (1.2-4.9); Mean Corpuscular HGB Conc 32.8 g/dl (31.0-35.0); Mean Corpuscular Hemoglobin 32.4 pg (27.0-33.0); Mean Corpuscular Volume 98.9 fL (80.0-98.0); Mean Platelet Volume 10.8 fL (9.4-12.3); Monocytes Absolute Auto 0.3 X10*3/uL (0.1-1.2); Monocytes Percent Auto 6.5 % (2-11); NRBC Pct Auto 0.5 /100WBC (0.0-0.2); Neutrophils Absolute Auto 3.6 x10*3/uL (2.0-8.3); Neutrophils Percent Auto 81.6 % (45-73); Platelet Count 267 X10*3/uL (160-400); Red Blood Count 3.61 X10*6/uL (4.20-5.50); Red Cell Distribution Width 14.6 % (11.0-16.0); White Blood Count 4.4 X10*3/uL (4.8-10.8)
[2023-08-01 11:24] LABS: Appearance Urine Clear; Color Urine Dark Yellow; Glucose Urine UA Negative (Negative); Leukocyte Esterase Urine Negative (Negative); Nitrite Urine Negative (Negative); PH 5.5 (5.0-9.0); Urine Blood Negative (Negative); Urine Ketones Negative (Negative); Urine Protein Trace mg/dL (Neg-Trace)
[2023-08-01 11:29] LABS: Bacteria Urine None Seen (None Seen); Hyaline Casts Urine 0-2 /LPF (0-2); RBC Urine 0-2 /HPF (0-2); Squamous Epithelial Cell Urine 0-2 /HPF (0-2); WBC Urine 0-5 /HPF (0-5)
[2023-08-01 11:49] LABS: Creatinine Urine 121.06 mg/dL; Protein/Creatinine Ratio, Ur 0.19 (<0.2); Total Protein Urine Random 23 mg/dL (<12)
[2023-08-01 11:59] LABS: Alanine Aminotransferase 17 U/L (0-31); Alkaline Phosphatase 64 U/L (39-117); Anion Gap 12 (12-20); Aspartate Amino Transferase 28 U/L (5-31); Bilirubin Total 0.2 mg/dL (0.0-1.0); Blood Urea Nitrogen 13 mg/dL (9-16); C Reactive Protein 0.61 mg/dL (< or = 0.50); Calcium 9.1 mg/dL (8.4-10.2); Carbon Dioxide 28 mmol/L (22-29); Chloride 106 mmol/L (96-108); Estimated Glomerular Filt Rate > 60; Glucose Random 80 mg/dL (60-115); Potassium 3.5 mmol/L (3.3-5.1); Sodium 142 mmol/L (135-145); Total Protein 8.2 g/dL (6.5-8.0)
[2023-08-01 12:01] LABS: Erythrocyte Sedimentation Rate 25 MM/HR (0-20)
[2023-08-02 11:49] LABS: Complement C3 104 mg/dL (83-193)
[2023-08-02 17:48] LABS: Anti DNA DS Antibody 56 IU/mL
[2023-08-03 09:49] LABS: PEU-Rand. Prot/Creat Ratio 250 mg/g creat (24-184); PEU-Random Ur. Gamma Globulin 19 %; PEU-Random Urine A1 Globulin 13 %; PEU-Random Urine A2 Globulin 22 %; PEU-Random Urine Albumin 17 %; PEU-Random Urine Beta Globulin 28 %; PEU-Random Urine Creatinine 116 mg/dL (20-275); PEU-Random Urine Protein 29 mg/dL (5-24)
== END 2023-08-01 07:13 | disposition home or self-care (01) ==
LOC: HO.10HDL 07:12
PROVIDERS: Visit Provider Student in an Organized Health Care Education/Training Program
DX: M32.9 Systemic lupus erythematosus, unspecified (principal)
CPT/HCPCS: 36415; 80053; 81001; 82570; 84156; 84166; 85025; 85652; 86140; 86160; 86225

== ENCOUNTER 2023-08-02 07:25 | Outpatient (REF) | payer MEDICARE, SELFPAY ==
[2023-08-02 08:15] LABS: Appearance Urine Clear; Color Urine Yellow; Glucose Urine UA Negative (Negative); Leukocyte Esterase Urine Negative (Negative); Nitrite Urine Negative (Negative); PH 5.5 (5.0-9.0); Specific Gravity - Urine 1.015 (1.005-1.025); Urine Blood Negative (Negative); Urine Ketones Negative (Negative); Urine Protein Trace mg/dL (Neg-Trace)
[2023-08-02 08:36] LABS: Anion Gap 11 (12-20); Blood Urea Nitrogen 10 mg/dL (9-16); Calcium 9.1 mg/dL (8.4-10.2); Carbon Dioxide 27 mmol/L (22-29); Chloride 108 mmol/L (96-108); Estimated Glomerular Filt Rate > 60; Potassium 3.3 mmol/L (3.3-5.1); Sodium 143 mmol/L (135-145)
[2023-08-02 08:40] LABS: Creatinine Urine 111.16 mg/dL; Total Protein Urine Random 22 mg/dL (<12)
== END 2023-08-02 07:26 | disposition home or self-care (01) ==
LOC: HO.LAB 07:25
PROVIDERS: Absent Provider Student in an Organized Health Care Education/Training Program; PCP Nurse Practitioner Family; Visit Provider Internal Medicine Nephrology
DX: M32.9 Systemic lupus erythematosus, unspecified (principal)
CPT/HCPCS: 36415; 80051; 81003; 82310; 82565; 82570; 84156; 84520

== ENCOUNTER 2023-08-09 10:40 | Outpatient (AMB) | payer MEDICARE, SELFPAY ==
[2023-08-09 11:08] VITALS: BP 126/68; PULSE 88; TEMP 36.5; O2SAT 98; BMI 19.6
--- NOTE | 2023-08-09 11:08 | A.OFFVIS_ITS ---
Intake Vital Signs 08/09/23 11:08 Height 5 ft Weight 100 lb 4.965 oz BMI 19.6 BP 126/68 Blood Pressure Location Rt brachial Position Sitting Pulse 88 Pulse Source Pulse Oximeter Temp 97.7 F Temp Source Skin Pulse Oximetry (%) 98 Oxygen Delivery Method Room Air Intake Visit Reasons: SLE Intake Note: Patient last seen 05/16/23 presents today for follow up and test results. General Warehouse Worker Required: No Accompanied by: Self / Same As Patient Allergies Penicillins Allergy (Verified 08/09/23 11:11) Chest Pain Sulfa (Sulfonamide Antibiotics) Allergy (Verified 08/09/23 11:11) Chest Pain Medication List - Last Reconciled 08/09/23 by Jayro Sam MD acyclovir 400 mg PO BID 90 days alendronate 70 mg PO QWEEK 90 days atorvastatin 10 mg PO DAILY 90 days azathioprine 50 mg PO DAILY esomeprazole magnesium 20 mg PO DAILY hydroxychloroquine 200 mg PO DAILY hydroxyzine HCl 10 mg PO BEDTIME PRN methylprednisolone (Medrol) Take 6 tabs by mouth once daily for 1 week then reduce by 1 tab every week then remain on 1 tab daily oxybutynin chloride 5 mg PO BID 90 days sennosides (senna) 17.2 mg (2 x 8.6 mg) PO DAILY PRN 90 days sucralfate 1 g PO QID 90 days warfarin 4 mg PO DAILY 90 days HPI HPI Comments History of Present Illness Details 58-year-old female with SLE returns for follow-up. Patient states that she is feeling much better overall. She is on Medrol 4 mg daily, azathioprine 50 mg daily and hydroxychloroquine 200 mg daily. No complaints today. Initial history: This is a 57-year-old female with a past medical history of lupus who presents as a new patient. Patient is from [place] and she used to follow-up with pharmacology associate Dr. yu for years. She stated that she was diagnosed with lupus as a child. 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 She had an IVC filter placed and was started on Coumadin. Coumadin was discontinued which led to development of right lower extremity DVT. She had been on Coumadin consistently for more than a decade. She had been on azathioprine since at least 2005. She was taking 50 mg daily and this was reduced to 25 mg daily in 2019. Moved to [place] a few years ago and did not establish regular care with a pharmacology associate. Her complaint today is rash on both forearms and chest that started in June. The rashes sometimes itchy. Not necessarily better or worse in the sun. She was prescribed ketoconazole cream by her PCP without improvement. Betamethasone cream was somewhat helpful but did not take the rash away. He denies any other complaints today. Denies any mouth ulcers denies any blood or froth in urine. Denies fevers or weight loss. No history of recurrent miscarriages. Records from patient's previous pharmacology associate Dr. Yu finally received 04/2023: Patient was initially diagnosed with ITP in 2005 and had a splenectomy, followed by DVT and IVC filter placement. At that time also she had skin rashes that were attributed to SLE. She was intermittently on hydroxychloroquine. 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 She required oxycodone and fentanyl patch. This was treated with prednisone, hydroxychloroquine and azathioprine. With good results. She was eventually weaned off pain killers. She was off Medrol since 2019 [facility] Medical History Osteopenia Gastritis Hyperlipemia Hypocalcemia Acid reflux Gallbladder & bile duct stone with obstruction Lupus Neuropathy Osteoporosis Pulmonary embolism DVT (deep venous thrombosis) SLE (systemic lupus erythematosus) Kidney stones (~12/06/04) Hernia of abdominal wall (~08/08/06) FH: cholecystectomy (~05/08/14) Surgical History S/P IVC filter H/O splenectomy (~08/08/05) Family History Father Colon cancer Lupus AA (alcohol abuse) Heart disease Mother COVID, Onset Age: 82 Sister COVID Maternal Grandfather Myocardial infarction Maternal Grandmother Malignant melanoma Social History Household Members: Spouse Housing: House Alcohol intake: current Alcohol intake frequency: holidays/special occasions only Patient Tobacco Use Status: Never used Tobacco e-Cigarette/Vaping Use: Never Used Substance Use Type: Caffiene service: No Current occupational status: retired and disabled Current occupational exposures/hazards: No Gender identity: Female Cognitive needs: No Hearing needs: No Vision needs: No Review of Systems Const Denies fatigue, Denies fever(s) and Denies weakness Resp Denies cough Musc Denies arthralgias Skin/Breast Denies rash Neuro Denies weakness Endo Denies fatigue Physical Exam Vital Signs: Last Vital Signs Temp 97.7 F 08/09/23 11:08 Pulse 88 08/09/23 11:08 BP 126/68 08/09/23 11:08 Pulse Ox 98 08/09/23 11:08 Oxygen Delivery Method Room Air 08/09/23 11:08 BMI result Body Mass Index 19.6 Const General: cooperative, healthy appearing and comfortable Nutritional Appearance: average body habitus Orientation/consciousness: patient oriented x3 Limitations: no limitations HEENT Head: Yes normocephalic and Yes atraumatic Mouth: moist mucous membranes Resp Effort & Inspection: normal respiratory effort and able to speak in complete sentences Auscultation: clear to auscultation bilaterally Cardio Rate: regular rate Rhythm: regular rhythm GI Inspection: No distended Palpation (GI): Soft to palpation Skin Other: No active discoid lesions on forearms or chest Neuro General: patient oriented x3 Extrem Other: Osteoarthritic changes of both hands with no active synovitis Normal nailfold capillaroscopy Results Reviewed Results Reviewed: Labs 06/2021? Lipid panel unremarkable? INR 2.5? CMP unremarkable? Labs 04/2022? Ferritin 207 (15-200) Serum iron 53 (35-150) TIBC 261 (250-450) Iron saturation 20.3 % WBC 3.53? ?380 lymphocytes and 2.85 neutrophil Hemoglobin 10.9.? 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 She is on hydroxychloroquine 200 mg daily, azathioprine 50 mg daily and Medrol 4 mg daily Doing much better overall. Inflammatory markers improving, dsDNA trending down, anemia improving. No significant proteinuria Will increase azathioprine to 75 mg daily Continue with Medrol 4 mg daily for 1 month then 4 mg every other day Continue with hydroxychloroquine 200 mg daily (2) Long-term use of hydroxychloroquine: Code(s): Z79.899 - Other custodial (current) drug therapy Plan: Was evaluated by welding machine operator arc and cleared to continue hydroxychloroquine. Advised yearly ophthalmology follow-up (3) Osteoporosis: Comment: 07/02/2020 Code(s): M81.0 - Age-related osteoporosis without current pathological fracture Qualifiers: Osteoporosis type: age-related Presence of current pathological fracture: without current pathological fracture Qualified Code(s): M81.0 - Age- related osteoporosis without current pathological fracture Plan: On alendronate prescribed by PCP. Will discuss repeat DEXA next visit Plan I spent 35 minutes reviewing patient's chart, evaluating patient, ordering diagnostic workup, counseling patient and documenting in the chart Orders: Orders Erythrocyte Sedimentation Rate 3 Months M32.9 - Systemic lupus erythematosus, unspecified Complement C4 3 Months M32.9 - Systemic lupus erythematosus, unspecified UA w Microscopic 3 Months M32.9 - Systemic lupus erythematosus, unspecified Complete Blood Count Auto Diff 3 Months M32.9 - Systemic lupus erythematosus, unspecified Comprehensive Met. Panel 3 Months M32.9 - Systemic lupus erythematosus, unspecified C Reactive Protein 3 Months M32.9 - Systemic lupus erythematosus, unspecified Anti DNA DS Antibody 3 Months M32.9 - Systemic lupus erythematosus, unspecified Complement C3 3 Months M32.9 - Systemic lupus erythematosus, unspecified Protein Creatinine Ratio, Ur 3 Months M32.9 - Systemic lupus erythematosus, unspecified Medications: New azathioprine 75 mg PO DAILY 90 tabs 0RF Changed From methylprednisolone (Medrol) Take 6 tabs by mouth once daily for 1 week then reduce by 1 tab every week then remain on 1 tab daily 154 tabs 0RF To methylprednisolone (Medrol) Take 1 tab daily for 1 month then 1 tab every other day 60 tabs 0RF Coding Level of Care Code Est Pt Level 4 (61380) Diagnoses Systemic lupus erythematosus with other organ involvement, unspecified SLE type M32.19 Systemic lupus erythematosus type: unspecified Systemic lupus erythematosus organ involvement: other Long-term use of hydroxychloroquine Z79.899 Age-related osteoporosis without current pathological fracture M81.0 Osteoporosis type: age-related Presence of current pathological fracture: without current pathological fracture
== END 2023-08-09 11:41 | disposition home or self-care (01) ==
LOC: HO.RHE 10:40
PROVIDERS: PCP Nurse Practitioner Family; Visit Provider Student in an Organized Health Care Education/Training Program
DX: M32.19 Other organ or system involvement in systemic lupus erythematosus (principal); Z79.899 Other long term (current) drug therapy; M81.0 Age-related osteoporosis without current pathological fracture
CPT/HCPCS: 99214

== ENCOUNTER → 2023-08-09 10:40 | Outpatient (BNVA) | payer MEDICARE, SELFPAY | PROVIDERS: PCP Nurse Practitioner Family; Visit Provider Student in an Organized Health Care Education/Training Program | DX: M32.19 Other organ or system involvement in systemic lupus erythematosus (principal); M81.0 Age-related osteoporosis without current pathological fracture; Z79.899 Other long term (current) drug therapy | CPT/HCPCS: 99212 ==

== ENCOUNTER 2023-09-13 09:40 | Outpatient (AMB) | payer MEDICARE, SELFPAY ==
--- NOTE | 2023-09-13 09:49 | HO.NEPHOV_ITS ---
HPI HPI Comments History of Present Illness Details I had the privilege of seeing Stephanie in follow up of her H/O M/S hematuria and proteinuria on a back drop of SLE. She has lupus for a long time. She had had multiple medication changes but feels her symptomatology of lupus including skin rashes are better with recent changes in immunosuppression. She does not have any macroscopic hematuria, edema, SOB, PND, orthopnea, GI symptoms, hemoptysis, melena. She has H/O DVT and had a IVC filter. She denied H/O miscarriages or H/O APLA. She remains on anti coagulation. She does not take excess NSAID's. She has had H/O renal stones in the past. She feels well. [facility] Medical History Osteopenia Gastritis Hyperlipemia Hypocalcemia Acid reflux Gallbladder & bile duct stone with obstruction Lupus Neuropathy Osteoporosis Pulmonary embolism DVT (deep venous thrombosis) SLE (systemic lupus erythematosus) Kidney stones (~12/06/04) Hernia of abdominal wall (~08/08/06) FH: cholecystectomy (~05/08/14) Surgical History S/P IVC filter H/O splenectomy (~08/08/05) Family History Father Colon cancer Lupus AA (alcohol abuse) Heart disease Mother COVID, Onset Age: 82 Sister COVID Maternal Grandfather Myocardial infarction Maternal Grandmother Malignant melanoma Social History Household Members: Spouse Housing: House Alcohol intake: current Alcohol intake frequency: holidays/special occasions only Patient Tobacco Use Status: Never used Tobacco e-Cigarette/Vaping Use: Never Used Substance Use Type: Caffiene service: No Current occupational status: retired and disabled Current occupational exposures/hazards: No Gender identity: Female Cognitive needs: No Hearing needs: No Vision needs: No Vital Signs 09/13/23 09:50 Height 5 ft Weight 100 lb 8 oz BMI 19.6 BP 108/58 L Blood Pressure Location Lt brachial Position Sitting Pulse 78 Pulse Source Pulse Oximeter Pulse Oximetry (%) 98 Oxygen Delivery Method Room Air Physical Exam Vital Signs: Last Vital Signs Pulse 78 09/13/23 09:50 BP 108/58 L 09/13/23 09:50 Pulse Ox 98 09/13/23 09:50 Oxygen Delivery Method Room Air 09/13/23 09:50 BMI result Body Mass Index 19.6 Const General: comfortable and no acute distress Orientation/consciousness: patient oriented x3 HEENT Head: Yes normocephalic Mouth: Normal oral and palatal mucosa present Eyes EOM: EOMs intact bilaterally Neck Neck: Yes supple Resp Auscultation: clear to auscultation bilaterally Cardio Jugular venous distension: no JVD Rate: regular rate GI Palpation (GI): Soft to palpation Auscultation: normal bowel sounds General: Yes no CVA tenderness Back/Spine/Pelvis Back: no CVA tenderness Skin General skin exam: no rashes or lesions noted Neuro General: patient oriented x3 and moves all extremities Extrem General: Yes no pedal edema Assessment & Plan Assessment & Plan (1) SLE (systemic lupus erythematosus): Comment: 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, treated with splenectomy skin rashes 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 (treated with pain killers, azathioprine and Medrol) HCQ restarted 03/2023, AZA increased to 50 mg Code(s): M32.9 - Systemic lupus erythematosus, unspecified Qualifiers: Systemic lupus erythematosus type: unspecified Systemic lupus erythematosus organ involvement: other Qualified Code(s): M32.19 - Other organ or system involvement in systemic lupus erythematosus Plan Renal functions normal No RBC and protein in urine now Currently on immunosuppression BP at goal; Hemodynamics stable Volume status optimal On anti coagulation 24 hour urine for protein normal All questions answered Orders: Orders Blood Urea Nitrogen Today M32.9 - Systemic lupus erythematosus, unspecified UA and rflx microscopic Today M32.9 - Systemic lupus erythematosus, unspecified Protein Creatinine Ratio, Ur Today M32.9 - Systemic lupus erythematosus, unspecified Creatinine Today M32.9 - Systemic lupus erythematosus, unspecified Electrolytes Today M32.9 - Systemic lupus erythematosus, unspecified Complete Blood Count Auto Diff Today M32.9 - Systemic lupus erythematosus, unspecified Coding Level of Care Code Est Pt Level 3 (01731) Diagnoses Systemic lupus erythematosus with other organ involvement, unspecified SLE type M32.19 Systemic lupus erythematosus type: unspecified Systemic lupus erythematosus organ involvement: other Results Reviewed Nephrology Results: Hgb 11.7 g/dl (12.0-16.0) L 08/01/23 WBC 4.4 X10*3/uL (4.8-10.8) L 08/01/23 Plt Count 267 X10*3/uL (160-400) 08/01/23 Sodium 143 mmol/L (135-145) 08/02/23 Potassium 3.3 mmol/L (3.3-5.1) 08/02/23 Chloride 108 mmol/L (96-108) 08/02/23 Carbon Dioxide 27 mmol/L (22-29) 08/02/23 BUN 10 mg/dL (9-16) 08/02/23 Creatinine 0.70 mg/dL (0.5-1.4) 08/02/23 Calcium 9.1 mg/dL (8.4-10.2) 08/02/23 Urine Protein Trace mg/dL (Neg-Trace) 08/02/23 Urine Creatinine 111.16 mg/dL 08/02/23 Protein/Creatinin Ratio 0.20 (<0.2) 08/02/23
[2023-09-13 09:50] VITALS: BP 108/58; PULSE 78; O2SAT 98; BMI 19.6
== END 2023-09-13 10:04 | disposition home or self-care (01) ==
PROVIDERS: PCP Nurse Practitioner Family; Visit Provider Internal Medicine Nephrology
DX: M32.19 Other organ or system involvement in systemic lupus erythematosus (principal)
CPT/HCPCS: 99213

== ENCOUNTER → 2023-09-13 09:40 | Outpatient (BNVA) | payer MEDICARE, SELFPAY | PROVIDERS: PCP Nurse Practitioner Family; Visit Provider Internal Medicine Nephrology | DX: M32.19 Other organ or system involvement in systemic lupus erythematosus (principal) | CPT/HCPCS: 99212 ==

== ENCOUNTER 2023-10-03 09:48 | Outpatient (AMB) | payer MEDICARE, SELFPAY ==
--- NOTE | 2023-10-03 09:53 | A.OFFPC_ITS ---
Vital Signs 10/03/23 10:00 Respiration 14 Pulse 88 Pulse Source Pulse Oximeter Temp 98.6 F Temp Source Oral Pulse Oximetry (%) 100 Oxygen Delivery Method Room Air Intake Visit Reasons: f/u health maintenance Intake Note: Follow up. Needs refill on esomeprazole magnesium 20 mg, senna, sucralfate 1 gm Labeling Associate Required: No Allergies Penicillins Allergy (Verified 10/03/23 10:20) Chest Pain Sulfa (Sulfonamide Antibiotics) Allergy (Verified 10/03/23 10:20) Chest Pain Medication List - Last Reconciled 10/03/23 by Jayro Bustillo CNP acyclovir 400 mg PO BID 90 days alendronate 70 mg PO QWEEK 90 days atorvastatin 10 mg PO DAILY 90 days azathioprine 75 mg (1.5 x 50 mg) PO DAILY esomeprazole magnesium 20 mg PO DAILY hydroxychloroquine 200 mg PO DAILY methylprednisolone (Medrol) Take 1 tab daily for 1 month then 1 tab every other day oxybutynin chloride 5 mg PO BID 90 days sennosides (senna) 17.2 mg (2 x 8.6 mg) PO DAILY PRN 90 days sucralfate 1 g PO QID 90 days warfarin 4 mg PO DAILY 90 days Tobacco use date assessed: 10/03/23 Dental Screening Dental Screen Date: 10/03/23 Did you have a dental visit in the last 12 months?: Yes Did you have a dental problem in the last 6 months where you did not have access to dental care?: No Was dental information given to patient?: Patient has dentist HPI HPI Comments History of Present Illness Details 58-year-old female presents with refill request for sucralfate and senna for chronic gastritis. She admits to taking her medications as prescribed without adverse reactions. She offers no complaints and denies acute symptoms at this time. [facility] Medical History (Updated 10/03/23 @ 10:17 by Jayro Bustillo CNP) Osteopenia Gastritis Hyperlipemia Hypocalcemia Acid reflux Gallbladder & bile duct stone with obstruction Lupus Neuropathy Osteoporosis Pulmonary embolism DVT (deep venous thrombosis) SLE (systemic lupus erythematosus) Kidney stones (~12/06/04) Hernia of abdominal wall (~08/08/06) FH: cholecystectomy (~05/08/14) Surgical History S/P IVC filter H/O splenectomy (~08/08/05) Family History Father Colon cancer Lupus AA (alcohol abuse) Heart disease Mother SIDDHARTHID, Onset Age: 82 Sister COVID Maternal Grandfather Myocardial infarction Maternal Grandmother Malignant melanoma Social History Household Members: Spouse Housing: House Alcohol intake: current Alcohol intake frequency: holidays/special occasions only Patient Tobacco Use Status: Never used Tobacco e-Cigarette/Vaping Use: Never Used Second Hand Smoke Exposure: No Substance Use Type: Caffiene service: No Current occupational status: retired and disabled Current occupational exposures/hazards: No Gender identity: Female Cognitive needs: No Hearing needs: No Vision needs: No Questionnaire PHQ-9 Over the last 2 weeks, how often have you been bothered by any of the following problems? 1. Little interest or pleasure in doing things: not at all 2. Feeling down, depressed, or hopeless: not at all 3. Trouble falling or staying asleep, or sleeping too much: not at all 4. Feeling tired or having little energy: not at all 5. Poor appetite or overeating: not at all 6. Feeling bad about yourself - or that you are a failure or have let yourself or your family down: not at all 7. Trouble concentrating on things, such as reading the newspaper or watching television: not at all 8. Moving or speaking so slowly that other people could have noticed. Or the opposite - being so fidgety or restless that you have been moving around a lot more than usual: not at all 9. Thoughts that you would be better off or of hurting yourself in some way: not at all Total score: 0 Depression Screening Interpretation: Negative Depression Screening Done: Yes 82705 - PHQ-9 Billing: Yes Source: Developed by Drs. Mj Cohen, Marianne To, Dennis Bland and colleagues, with an educational carlos from [employer] Thrive Questionnaire Date Thrive assessed: 10/03/23 I am a: Patient What is your living situation today?: I have a steady place to live Within the past 12 months, did the food you bought not last and you didn't have the money to get more?: Never true Within the past 12 months, did you worry whether your food would run out before you got money to buy more?: Never true Do you have trouble paying for medicines?: No Do you have trouble getting transportation to medical appointments?: No Do you have trouble paying your heating and electricity bill?: No Do you have trouble taking care of your child, family member or friend?: No Do you have trouble with day-to-day activities such as bathing, preparing meals, shopping, managing finances, etc.?: No Are you currently unemployed and looking for a job?: No Are you interested in more education?: No Please select the resources that you would like help with: None Currently or been in a relationship where the following occur: no concerns reported THRIVE Score: 0 AUDIT C Alcohol Use Questionnaire (AUDIT-C) 1. How often do you have a drink containing alcohol?: Monthly or less 2. How many drinks containing alcohol do you have on a typical day when you are drinking?: 1 or 2 3. How often do you have six or more drinks on one occasion?: Never Total Score: 1 LAWSON-7 AMB Questionnaire LAWSON-7 Date LAWSON - 7 assessed: 10/03/23 Feeling nervous, anxious, or on edge: 0 = Not at all Not being able to stop or control worryin = Not at all Worrying too much about different things: 0 = Not at all Trouble relaxin = Not at all Being so restless that it is hard to sit still: 0 = Not at all Becoming easily annoyed or irritable: 0 = Not at all Feeling afraid as if something awful might happen: 0 = Not at all Total LAWSON-7 score (0-4 normal; 5-9 mild; 10-14 moderate; 15-21 severe): 0 Source: Developed by Drs. Mj Cohen, Marianne To, Dennis Bland and colleagues, with an educational carlos from [employer] LAWSON-7 Assessment Billing LAWSON-7 Assessment Tool: LAWSON-7 Assessment 68875 Review of Systems Const Details: Const Denies chills, Denies fatigue, Denies fever(s), Denies headache(s) and Denies weakness ENT Denies dizziness and Denies headache(s) Card Denies chest pain, Denies lightheadedness, Denies dyspnea and Denies other (Palpitations) Resp Denies cough, Denies dyspnea, Denies wheezing and Denies other ( shortness of breath) GI Denies abdominal pain, Denies melena, Denies hematochezia, Denies change in bowel habits, Denies dyspepsia and Denies nausea Denies hematuria and Denies dysuria Musc Denies abnormal gait, Denies myalgias, Denies arthralgias, Denies numbness and Denies tingling Skin/Breast Denies rash, Denies unusual bruising and Denies wounds Neuro Denies abnormal gait, Denies dizziness, Denies headache(s), Denies memory loss, Denies numbness, Denies Sensory deficit (Neuro), Denies tingling and Denies weakness Psych Denies anxiety, Denies depression, Denies memory loss Endo Denies cold intolerance, Denies fatigue, Denies heat intolerance, Denies polydipsia and Denies polyuria Aller/Immun Denies wheezing Physical exam (Primary Care) Vital Signs: Last Vital Signs Temp 98.6 F 10/03/23 10:00 Pulse 88 10/03/23 10:00 Resp 14 10/03/23 10:00 Pulse Ox 100 10/03/23 10:00 Oxygen Delivery Method Room Air 10/03/23 10:00 Tobacco/Smoking Status: Tobacco use Status Tobacco use date assessed 07/14/23 07/14/23 09:41 Patient Tobacco Use Status Never used Tobacco 08/09/23 11:14 e-Cigarette/Vaping Use Never Used 08/09/23 11:14 Depression Screening Interpretation: Negative Thrive Assessment: Date of Thrive Assessment Date Thrive assessed 11/24/22 07/14/23 09:41 Currently or been in a relationship where the following occur: no concerns reported Const Other: General: no acute distress and well developed Nutritional Appearance: well nourished Orientation/consciousness: patient oriented x3 HENMT Head: Yes normocephalic and Yes atraumatic Eyes General: appearance normal, both eyes and all related structures Pupils: Equal, round and reactive pupils present EOM: EOMs intact bilaterally Resp Effort & Inspection: normal respiratory effort Auscultation: clear to auscultation bilaterally Cardio Rate: regular rate Rhythm: regular rhythm Heart sounds: S1 normal heart sound present, S2 normal heart sound present, no gallops, no murmurs and no rubs GI Palpation (GI): No Abdominal aortic bruit present, Soft to palpation, nontender, No hepatosplenomegaly present and No Rebound tenderness present Auscultation: normal bowel sounds General: Yes no CVA tenderness Back/Spine/Pelvis Back: no CVA tenderness Cervical Spine: cervical ROM normal and No Cervical spine tenderness Thoracic/Lumbar Spine: thoraco-lumbar ROM normal, No pain with thoraco-lumbar ROM, No thoracic spinal tenderness and No lumbar spinal tenderness Extrem General: Yes normal to inspection, No edema and No calf tenderness Skin General: warm and dry. Normal skin color. Normal skin turgor Neuro General: patient oriented x3, gait normal and no focal neuro deficit Cranial nerves: Yes Equal, round and reactive pupils present Cognition (Neuro): normal cognition Gait exam (Neuro): Normal gait present Sensory Exam: No Sensory deficit (Neuro) Psych Appearance: grossly normal Affect: normal affect Attitude: cooperative Thought process: Normal thought process present Assessment and Plan Assessment & Plan (1) Gastritis: Comment: 07/02/2020 Code(s): K29.70 - Gastritis, unspecified, without bleeding Plan: Sucralfate 1 g 4 times daily refill sent. Advised to continue to take as prescribed She has a refill on senna Follow-up as planned for an extended physical exam Return sooner with symptoms or concerns Verbalized understanding and agreed with the plan Medications: Refilled sucralfate 1 g PO QID 90 days 360 tabs 1RF Coding Level of Care Code Est Pt Level 3 (08232) Diagnoses Gastritis K29.70 Additional Codes LAWSON-7 Assessment Billing - LAWSON-7 Assessment Tool: LAWSON-7 Assessment 52849 ([id number])
[2023-10-03 10:00] VITALS: PULSE 88; RESP 14; TEMP 37; O2SAT 100
== END 2023-10-03 10:27 | disposition home or self-care (01) ==
PROVIDERS: PCP Nurse Practitioner Family; Visit Provider Nurse Practitioner Family
DX: K29.70 Gastritis, unspecified, without bleeding (principal)
CPT/HCPCS: 99213

== ENCOUNTER 2023-10-03 10:21 | Outpatient (REF) | payer MEDICARE, SELFPAY ==
[2023-10-03 11:28] LABS: MANUAL DIFF FLAG NO
[2023-10-03 11:53] LABS: Basophils Percent Auto 0.7 % (0-2); Eosinophils Percent Auto 0.2 % (0-4); Hematocrit 33.3 % (37.0-47.0); Hemoglobin 10.7 g/dl (12.0-16.0); Imm Gran Abs Auto 0.02 X10*3/uL (0.00-0.03); Imm Gran Pct Auto 0.4 % (0.0-0.4); Lymphocytes Absolute Auto 0.2 X10*3/uL (1.2-4.9); Lymphocytes Percent Auto 5.3 % (20-40); Mean Corpuscular HGB Conc 32.1 g/dl (31.0-35.0); Mean Corpuscular Hemoglobin 33.1 pg (27.0-33.0); Mean Corpuscular Volume 103.1 fL (80.0-98.0); Mean Platelet Volume 10.5 fL (9.4-12.3); Monocytes Absolute Auto 0.3 X10*3/uL (0.1-1.2); Monocytes Percent Auto 5.8 % (2-11); Neutrophils Percent Auto 87.6 % (45-73); Platelet Count 273 X10*3/uL (160-400); Red Blood Count 3.23 X10*6/uL (4.20-5.50); Red Cell Distribution Width 16.1 % (11.0-16.0); White Blood Count 4.5 X10*3/uL (4.8-10.8)
[2023-10-03 12:33] LABS: NRBC Pct Auto 1.8 /100WBC (0.0-0.2)
[2023-10-03 12:54] LABS: Erythrocyte Sedimentation Rate 25 MM/HR (0-20)
[2023-10-03 14:03] LABS: Alanine Aminotransferase 22 U/L (0-31); Anion Gap 9 (12-20); Aspartate Amino Transferase 33 U/L (5-31); Bilirubin Total 0.3 mg/dL (0.0-1.0); Blood Urea Nitrogen 14 mg/dL (9-16); Calcium 9.1 mg/dL (8.4-10.2); Carbon Dioxide 28 mmol/L (22-29); Chloride 105 mmol/L (96-108); Estimated Glomerular Filt Rate > 60; Glucose Random 89 mg/dL (60-115); Potassium 3.7 mmol/L (3.3-5.1); Sodium 138 mmol/L (135-145)
[2023-10-03 14:12] LABS: Alkaline Phosphatase 60 U/L (39-117)
[2023-10-04 19:38] LABS: Anti DNA DS Antibody 38 IU/mL
[2023-10-05 14:34] LABS: Complement C3 56 mg/dL (83-193)
== END 2023-10-03 10:22 | disposition home or self-care (01) ==
LOC: HO.WFDLDS 10:21
PROVIDERS: Visit Provider Student in an Organized Health Care Education/Training Program
DX: M32.9 Systemic lupus erythematosus, unspecified (principal)
CPT/HCPCS: 36415; 80053; 85025; 85597; 85598; 85613; 85652; 85730; 86160; 86225

== ENCOUNTER 2023-11-07 09:50 | Outpatient (AMB) | payer MEDICARE, SELFPAY ==
--- NOTE | 2023-11-07 09:59 | A.OFFVIS_ITS ---
Vital Signs 11/07/23 10:00 Height 5 ft Weight 102 lb 11.767 oz BMI 20.1 BP 118/62 Blood Pressure Location Rt brachial Position Sitting Pulse 83 Pulse Source Pulse Oximeter Pulse Oximetry (%) 97 Oxygen Delivery Method Room Air Intake Visit Reasons: SLE/CM Intake Note: Patient last seen 08/09/23 presents today for follow up and test results. 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 Accompanied by: Self / Same As Patient Allergies Penicillins Allergy (Verified 11/07/23 10:13) Chest Pain Sulfa (Sulfonamide Antibiotics) Allergy (Verified 11/07/23 10:13) Chest Pain Medication List - Last Reconciled 11/07/23 by Jayro Sam MD acyclovir 400 mg PO BID 90 days alendronate 70 mg PO QWEEK 90 days atorvastatin 10 mg PO DAILY 90 days azathioprine 75 mg (1.5 x 50 mg) PO DAILY esomeprazole magnesium 20 mg PO DAILY hydroxychloroquine 200 mg PO DAILY methylprednisolone (Medrol) Take 1 tab daily for 1 month then 1 tab every other day oxybutynin chloride 5 mg PO BID 90 days sennosides (senna) 17.2 mg (2 x 8.6 mg) PO DAILY PRN 90 days sucralfate 1 g PO QID 90 days warfarin 4 mg PO DAILY 90 days HPI Comments Details: 58-year-old female with SLE returns for follow-up. Patient states that she is feeling much better overall. Takes Medrol 4 mg tablet half a tablet every other day, hydroxychloroquine 20 mg daily and azathioprine 75 mg daily. Has no complaints today. Feels very well. Initial history: This is a 57-year-old female with a past medical history of lupus who presents as a new patient. Patient is from [place] and she used to follow-up with sales and service specialist Dr. yu for years. She stated that she was diagnosed with lupus as a child. 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 She had an IVC filter placed and was started on Coumadin. Coumadin was discontinued which led to development of right lower extremity DVT. She had been on Coumadin consistently for more than a decade. She had been on azathioprine since at least 2005. She was taking 50 mg daily and this was reduced to 25 mg daily in 2019. Moved to [place] a few years ago and did not establish regular care with a sales and service specialist. Her complaint today is rash on both forearms and chest that started in June. The rashes sometimes itchy. Not necessarily better or worse in the sun. She was prescribed ketoconazole cream by her PCP without improvement. Betamethasone cream was somewhat helpful but did not take the rash away. He denies any other complaints today. Denies any mouth ulcers denies any blood or froth in urine. Denies fevers or weight loss. No history of recurrent miscarriages. Records from patient's previous sales and service specialist Dr. Yu finally received 04/2023: Patient was initially diagnosed with ITP in 2005 and had a splenectomy, followed by DVT and IVC filter placement. At that time also she had skin rashes that were attributed to SLE. She was intermittently on hydroxychloroquine. 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 She required oxycodone and fentanyl patch. This was treated with prednisone, hydroxychloroquine and azathioprine. With good results. She was eventually weaned off pain killers. She was off Medrol since 2019 [facility] Medical History Osteopenia Gastritis Hyperlipemia Hypocalcemia Acid reflux Gallbladder & bile duct stone with obstruction Lupus Neuropathy Osteoporosis Pulmonary embolism DVT (deep venous thrombosis) SLE (systemic lupus erythematosus) Kidney stones (~12/06/04) Hernia of abdominal wall (~08/08/06) FH: cholecystectomy (~05/08/14) Surgical History S/P IVC filter H/O splenectomy (~08/08/05) Family History Father Colon cancer Lupus AA (alcohol abuse) Heart disease Mother COVID, Onset Age: 82 Sister COVID Maternal Grandfather Myocardial infarction Maternal Grandmother Malignant melanoma Social History Household Members: Spouse Housing: House Alcohol intake: current Alcohol intake frequency: holidays/special occasions only Patient Tobacco Use Status: Never used Tobacco e-Cigarette/Vaping Use: Never Used Second Hand Smoke Exposure: No Substance Use Type: Caffiene service: No Current occupational status: retired and disabled Current occupational exposures/hazards: No Gender identity: Female Cognitive needs: No Hearing needs: No Vision needs: No Review of Systems Const Denies fatigue, Denies fever(s) and Denies weakness Resp Denies cough Musc Denies arthralgias Skin/Breast Denies rash Neuro Denies weakness Endo Denies fatigue Physical Exam Vital Signs: Last Vital Signs Pulse 83 11/07/23 10:00 BP 118/62 11/07/23 10:00 Pulse Ox 97 11/07/23 10:00 Oxygen Delivery Method Room Air 11/07/23 10:00 BMI result Body Mass Index 20.1 Const General: cooperative, healthy appearing and comfortable Nutritional Appearance: average body habitus Orientation/consciousness: patient oriented x3 Limitations: no limitations HEENT Head: Yes normocephalic and Yes atraumatic Mouth: moist mucous membranes Resp Effort & Inspection: normal respiratory effort and able to speak in complete sentences Auscultation: clear to auscultation bilaterally Cardio Rate: regular rate Rhythm: regular rhythm GI Inspection: No distended Palpation (GI): Soft to palpation Skin Other: No active discoid lesions on forearms or chest Neuro General: patient oriented x3 Extrem Other: Osteoarthritic changes of both hands with no active synovitis Normal nailfold capillaroscopy Results Reviewed Results Reviewed: Labs 06/2021? Lipid panel unremarkable? INR 2.5? CMP unremarkable? Labs 04/2022? Ferritin 207 (15-200) Serum iron 53 (35-150) TIBC 261 (250-450) Iron saturation 20.3 % WBC 3.53? ?380 lymphocytes and 2.85 neutrophil Hemoglobin 10.9.? 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 She is on hydroxychloroquine 200 mg daily, azathioprine 75 mg daily and Medrol 4 mg (1/2 tab every other day) Doing much better overall. Inflammatory markers improving, dsDNA trending down, anemia improving. No significant proteinuria Continue current meds but reduce Medrol to 2 mg tablets, (half tablet every other day) for 1 month then stop Labs before next visit 4 months (2) Long-term use of hydroxychloroquine: Comment: Eye exam okay 06/2023 Code(s): Z79.899 - Other termite control representative (current) drug therapy Category: Medical Plan: Was evaluated by band splicer and cleared to continue hydroxychloroquine. Advised yearly ophthalmology follow-up (3) Osteoporosis: Comment: 07/02/2020 Code(s): M81.0 - Age-related osteoporosis without current pathological fracture Category: Medical Qualifiers: Osteoporosis type: age-related Presence of current pathological fracture: without current pathological fracture Qualified Code(s): M81.0 - Age- related osteoporosis without current pathological fracture Plan: On alendronate prescribed by PCP. Patient stated that her most recent DEXA scan was last year at [facility], will attempt to retrieve records (4) Encounter for monitoring azathioprine therapy: Code(s): Z51.81 - Encounter for therapeutic drug level monitoring; Z79.624 - halfway (current) use of inhibitors of nucleotide synthesis Category: Medical Plan: Monitor safety labs for azathioprine. Patient has macrocytosis likely induced by azathioprine. But no significant anemia. Will continue to monitor Plan I spent 35 minutes reviewing patient's chart, evaluating patient, ordering diagnostic workup, counseling patient and documenting in the chart Orders: Orders Complement C3 4 Months M32.19 - Other organ or system involvement in systemic lupus erythematosus Complement C4 4 Months M32.19 - Other organ or system involvement in systemic lupus erythematosus Erythrocyte Sedimentation Rate 4 Months M32.19 - Other organ or system involvement in systemic lupus erythematosus Protein Creatinine Ratio, Ur 4 Months M32.19 - Other organ or system involvement in systemic lupus erythematosus Complete Blood Count Auto Diff 4 Months M32.19 - Other organ or system involvement in systemic lupus erythematosus Anti DNA DS Antibody 4 Months M32.19 - Other organ or system involvement in systemic lupus erythematosus C Reactive Protein 4 Months - Other organ or system involvement in systemic lupus erythematosus UA w Microscopic 4 Months - Other organ or system involvement in systemic lupus erythematosus Comprehensive Met. Panel 4 Months - Other organ or system involvement in systemic lupus erythematosus Medications: New methylprednisolone (Medrol) 1 mg (1/2 x 2 mg) PO Q OTHER DAY 8 tabs 0RF Refilled hydroxychloroquine 200 mg PO DAILY 90 tabs 1RF azathioprine 75 mg (1.5 x 50 mg) PO DAILY 190 tabs 0RF Discontinued methylprednisolone (Medrol) Discontinued Reason: Doctor's Order Take 1 tab daily for 1 month then 1 tab every other day 60 tabs 0RF Coding Level of Care Code Est Pt Level 4 (02277) Complex EM visit Add On G2211 Diagnoses Systemic lupus erythematosus with other organ involvement, unspecified SLE type Systemic lupus erythematosus type: unspecified Systemic lupus erythematosus organ involvement: other Long-term use of hydroxychloroquine Z79.899 Age-related osteoporosis without current pathological fracture M81.0 Osteoporosis type: age-related Presence of current pathological fracture: without current pathological fracture Encounter for monitoring azathioprine therapy Z51.81; Z79.624
[2023-11-07 10:00] VITALS: BP 118/62; PULSE 83; O2SAT 97; BMI 20.1
== END 2023-11-07 10:36 | disposition home or self-care (01) ==
PROVIDERS: PCP Nurse Practitioner Family; Visit Provider Student in an Organized Health Care Education/Training Program
DX: M32.19 Other organ or system involvement in systemic lupus erythematosus (principal); Z79.899 Other long term (current) drug therapy; M81.0 Age-related osteoporosis without current pathological fracture; Z51.81 Encounter for therapeutic drug level monitoring; Z79.624 Long term (current) use of inhibitors of nucleotide synthesis
CPT/HCPCS: 99214; G2211

== ENCOUNTER → 2023-11-07 09:50 | Outpatient (BNVA) | payer MEDICARE, SELFPAY | PROVIDERS: PCP Nurse Practitioner Family; Visit Provider Student in an Organized Health Care Education/Training Program | DX: M32.19 Other organ or system involvement in systemic lupus erythematosus (principal); M81.0 Age-related osteoporosis without current pathological fracture; Z79.899 Other long term (current) drug therapy; Z51.81 Encounter for therapeutic drug level monitoring; Z79.624 Long term (current) use of inhibitors of nucleotide synthesis | CPT/HCPCS: 99212 ==

== ENCOUNTER 2023-12-25 08:24 | Outpatient (AMB) | payer MEDICARE, SELFPAY ==
--- NOTE | 2023-12-25 08:21 | MHC.PC.OV ---
Vital Signs 12/25/23 08:31 Height 4 ft 9.87 in Weight 102 lb 2 oz BMI 21.4 BP 120/68 Blood Pressure Location Rt brachial Position Sitting Respiration 16 Pulse 74 Pulse Source Pulse Oximeter Temp 98.1 F Temp Source Temporal Artery Scan Pulse Oximetry (%) 99 Oxygen Delivery Method Room Air Intake Visit Reasons: CPE - see comments Intake Note: patient here for CPE and refill scripts. Religious Activities Director Required: No Is last menstrual period known: No Post menopausal: No Patient : No Allergies Penicillins Allergy (Verified 12/25/23 08:43) Chest Pain Sulfa (Sulfonamide Antibiotics) Allergy (Verified 12/25/23 08:43) Chest Pain Medication List - Last Reconciled 12/25/23 by Jayro Bustillo CNP acyclovir 400 mg PO BID 90 days alendronate 70 mg PO QWEEK 90 days atorvastatin 10 mg PO DAILY 90 days azathioprine 75 mg (1.5 x 50 mg) PO DAILY esomeprazole magnesium 20 mg PO DAILY hydroxychloroquine 200 mg PO DAILY oxybutynin chloride 5 mg PO BID 90 days sennosides (senna) 17.2 mg (2 x 8.6 mg) PO DAILY PRN 90 days sucralfate 1 g PO QID 90 days warfarin 4 mg PO DAILY 90 days Tobacco use date assessed: 10/03/23 Dental Screening Dental Screen Date: 12/25/23 Did you have a dental visit in the last 12 months?: Yes Did you have a dental problem in the last 6 months where you did not have access to dental care?: No Was dental information given to patient?: Patient has dentist HPI HPI Comments History of Present Illness Details 58-year-old female presents for an extended physical exam. 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 She takes PRN hydroxyzine for occasional generalized itching. She is on Warfarin 4 mg daily. She admits to taking her medications as prescribed without adverse reactions. She notes that she has been making healthy dietary changes, exercising routinely, and sleeping well. She offers no complaints and denies acute symptoms at this time. She is followed by [facility], Nephrology, and Coumadin clinic. She was followed by [facility] hematology. Last mammogram was on 01/03/2023 at [facility]: Negative Last Cologuard test was on 01/06/2023 at [facility]: Incomplete. She notes adverse reaction to bowel prep before colonoscopy and incomplete bowel emptying. She is willing to be referred to Dr. Gilman, [facility] gastro Last Pap smear test was with her scow captain on [facility] a year ago: normal. She will sign a release of her records to be sent to her PCP She notes that she is up-to-date on the shingles vaccines She notes that her last dexascan was with [facility] almost a year ago [facility] Medical History Osteopenia Gastritis Hyperlipemia Hypocalcemia Acid reflux Gallbladder & bile duct stone with obstruction Lupus Neuropathy Osteoporosis Pulmonary embolism DVT (deep venous thrombosis) SLE (systemic lupus erythematosus) Kidney stones (~12/06/04) Hernia of abdominal wall (~08/08/06) FH: cholecystectomy (~05/08/14) Surgical History S/P IVC filter H/O splenectomy (~08/08/05) Family History Father Colon cancer Lupus AA (alcohol abuse) Heart disease Mother COVID, Onset Age: 82 Sister COVID Maternal Grandfather Myocardial infarction Maternal Grandmother Malignant melanoma Social History Household Members: Spouse Housing: House Alcohol intake: current Alcohol intake frequency: holidays/special occasions only Patient Tobacco Use Status: Never used Tobacco e-Cigarette/Vaping Use: Never Used Second Hand Smoke Exposure: No Substance Use Type: Caffiene service: No Current occupational status: retired and disabled Current occupational exposures/hazards: No Gender identity: Female Cognitive needs: No Hearing needs: No Vision needs: No Questionnaire PHQ-9 Over the last 2 weeks, how often have you been bothered by any of the following problems? 1. Little interest or pleasure in doing things: not at all 2. Feeling down, depressed, or hopeless: not at all 3. Trouble falling or staying asleep, or sleeping too much: not at all 4. Feeling tired or having little energy: not at all 5. Poor appetite or overeating: not at all 6. Feeling bad about yourself - or that you are a failure or have let yourself or your family down: not at all 7. Trouble concentrating on things, such as reading the newspaper or watching television: not at all 8. Moving or speaking so slowly that other people could have noticed. Or the opposite - being so fidgety or restless that you have been moving around a lot more than usual: not at all 9. Thoughts that you would be better off or of hurting yourself in some way: not at all Total score: 0 Depression Screening Done: Yes 53788 - PHQ-9 Billing: Yes Source: Developed by Drs. Mj Cohen, Marianne To, Dennis Bland and colleagues, with an educational carlos from [employer]. Thrive Questionnaire Date Thrive assessed: 10/03/23 AUDIT C Alcohol Use Questionnaire (AUDIT-C) 1. How often do you have a drink containing alcohol?: Never 3. How often do you have six or more drinks on one occasion?: Never Total Score: 0 LAWSON-7 AMB Questionnaire LAWSON-7 Date LAWSON - 7 assessed: 10/03/23 Feeling nervous, anxious, or on edge: 0 = Not at all Not being able to stop or control worryin = Not at all Worrying too much about different things: 0 = Not at all Trouble relaxin = Not at all Being so restless that it is hard to sit still: 0 = Not at all Becoming easily annoyed or irritable: 0 = Not at all Feeling afraid as if something awful might happen: 0 = Not at all Total LAWSON-7 score (0-4 normal; 5-9 mild; 10-14 moderate; 15-21 severe): 0 Source: Developed by Drs. Mj Cohen, Marianne To, Dennis Bland and colleagues, with an educational carlos from [employer]. Review of Systems Const Details: Denies chills, Denies fatigue, Denies fever(s), Denies headache(s) and Denies weakness HEENT Denies change in vision, Denies dizziness, Denies headache(s), Denies hearing loss, Denies nasal congestion, Denies sinus pain, Denies sinus pressure and Denies sore throat Card Denies chest pain, Denies lightheadedness, Denies dyspnea and Denies other (palpitations) Resp Denies cough, Denies dyspnea and Denies wheezing GI Denies abdominal pain, Denies melena, Denies hematochezia, Denies change in bowel habits, Denies dyspepsia and Denies nausea Denies hematuria and Denies dysuria Musc Denies abnormal gait, Denies myalgias, Denies arthralgias, Denies numbness and Denies tingling Skin/Breast Denies rash, Denies unusual bruising and Denies wounds Neuro Denies abnormal gait, Denies dizziness, Denies headache(s), Denies memory loss, Denies numbness, Denies Sensory deficit (Neuro), Denies tingling and Denies weakness Psych Denies anxiety, Denies depression and Denies memory loss Endo Denies cold intolerance, Denies fatigue, Denies heat intolerance, Denies polydipsia and Denies polyuria Lars/Lymph Denies easy bleeding and Denies easy bruising Aller/Immun Denies wheezing Physical exam (Primary Care) Tobacco/Smoking Status: Tobacco use Status Tobacco use date assessed 10/03/23 12/25/23 08:26 Patient Tobacco Use Status Never used Tobacco 12/25/23 08:26 e-Cigarette/Vaping Use Never Used 12/25/23 08:26 Thrive Assessment: Date of Thrive Assessment Date Thrive assessed 10/03/23 12/25/23 08:26 Const Other: General: no acute distress, well developed, alert and awake Nutritional Appearance: well nourished Orientation/consciousness: patient oriented x3 HENMT Head: Yes normocephalic and Yes atraumatic Ears: hearing grossly normal bilaterally and TM's normal bilaterally General nose exam: Normal external nose present and Normal nares present Mouth: Normal oral and palatal mucosa present and moist mucous membranes Teeth and gingiva: dentition normal Throat: Yes oropharynx normal Eyes Pupils: Equal, round and reactive pupils present and Pupil accommodation reflex normal EOM: EOMs intact bilaterally Neck Neck: Yes normal visual inspection, Yes no lymphadenopathy and Yes trachea midline Thyroid: Thyroid normal Carotids: no bruits Lymphatic: no lymphadenopathy noted Chest Chest palpation & inspection: normal inspection of the chest Resp Effort & Inspection: normal respiratory effort Auscultation: clear to auscultation bilaterally Cardio Rate: regular rate Rhythm: regular rhythm Heart sounds: S1 normal heart sound present, S2 normal heart sound present, no gallops, no murmurs and no rubs Bruits: no abdominal aortic bruits and no carotid bruits GI Palpation (GI): No Abdominal aortic bruit present, Soft to palpation, nontender, No hepatosplenomegaly present and No Rebound tenderness present Auscultation: normal bowel sounds General: Yes no CVA tenderness Back/Spine/Pelvis Back: no CVA tenderness Cervical Spine: cervical ROM normal and No Cervical spine tenderness Thoracic/Lumbar Spine: thoraco-lumbar ROM normal, No pain with thoraco-lumbar ROM, No thoracic spinal tenderness and No lumbar spinal tenderness Skin General: warm and dry. Normal skin color. Normal skin turgor Lesions: no lesions Rashes: no rashes Trauma: no lacerations or abrasions Wounds: no wounds Nails: normal Neuro General: patient oriented x3, gait normal and CN's II-XI intact bilaterally Cranial nerves: Yes Equal, round and reactive pupils present Cognition (Neuro): normal cognition Gait exam (Neuro): Normal gait present Motor exam (neuro): 5/5 motor strength present throughout Sensory Exam: No Sensory deficit (Neuro) Deep tendon reflexes (DTR's): Right patellar reflex intensity grade: 2+ and Left patellar reflex intensity grade: 2+ Extrem General: Yes normal to inspection, No edema and No calf tenderness Psych Appearance: grossly normal Affect: normal affect Attitude: cooperative Thought process: Normal thought process present Assessment and Plan Assessment & Plan (1) Physical exam, annual: Code(s): Z00.00 - Encounter for general adult medical examination without abnormal findings Plan: No significant physical restrictions or limitations noted Continue current treatment regimen Healthy diet and routine exercise encouraged Advised to get fasting blood work done; fast for 10-12 hours, may drink water only before blood work. Will review results and make changes as needed Continue follow-up with specialist as planned Encouraged to follow-up in 6 months for hyperlipidemia and health maintenance Return with symptoms or concerns Verbalized understanding and agreed with the treatment plan (2) Colon cancer screening: Code(s): Z12.11 - Encounter for screening for malignant neoplasm of colon Plan: Last Cologuard test was on 01/06/2023 at [facility]: Incomplete. She notes adverse reaction to bowel prep before colonoscopy and incomplete bowel emptying Referred to Dr. Larios, gastroenterology for a colonoscopy Orders: Orders Lipid Panel Today Z00.00 - Encounter for general adult medical examination without abnormal findings TSH reflex Free T4 Today Z00.00 - Encounter for general adult medical examination without abnormal findings Lipid Panel 6 Months E78.5 - Hyperlipidemia, unspecified Referrals Gastroenterology Referral Z12.11 - Encounter for screening for malignant neoplasm of colon Coding Level of Care Code Est Pt Prev Care 40-64y(27458) Diagnoses Physical exam, annual Z00.00 Colon cancer screening Z12.11
[2023-12-25 08:31] VITALS: BP 120/68; PULSE 74; RESP 16; TEMP 36.7; O2SAT 99; BMI 21.4
== END 2023-12-25 09:09 | disposition home or self-care (01) ==
PROVIDERS: PCP Nurse Practitioner Family; Visit Provider Nurse Practitioner Family
DX: Z00.00 Encounter for general adult medical examination without abnormal findings (principal); Z12.11 Encounter for screening for malignant neoplasm of colon; M32.9 Systemic lupus erythematosus, unspecified
CPT/HCPCS: 99396

== ENCOUNTER 2024-01-23 09:18 | Outpatient (REF) | payer MEDICARE, SELFPAY ==
[2024-01-23 11:14] LABS: MANUAL DIFF FLAG NO
[2024-01-23 11:27] LABS: Basophils Percent Auto 0.7 % (0-2); Hematocrit 33.1 % (37.0-47.0); Hemoglobin 11.2 g/dl (12.0-16.0); Imm Gran Abs Auto 0.01 X10*3/uL (0.00-0.03); Imm Gran Pct Auto 0.3 % (0.0-0.4); Lymphocytes Absolute Auto 0.4 X10*3/uL (1.2-4.9); Lymphocytes Percent Auto 12.8 % (20-40); Mean Corpuscular HGB Conc 33.8 g/dl (31.0-35.0); Mean Corpuscular Hemoglobin 34.3 pg (27.0-33.0); Mean Corpuscular Volume 101.2 fL (80.0-98.0); Mean Platelet Volume 10.4 fL (9.4-12.3); Monocytes Absolute Auto 0.2 X10*3/uL (0.1-1.2); Monocytes Percent Auto 6.6 % (2-11); Neutrophils Absolute Auto 2.4 x10*3/uL (2.0-8.3); Neutrophils Percent Auto 78.6 % (45-73); Platelet Count 251 X10*3/uL (160-400); Red Blood Count 3.27 X10*6/uL (4.20-5.50); Red Cell Distribution Width 13.8 % (11.0-16.0); White Blood Count 3.1 X10*3/uL (4.8-10.8)
[2024-01-23 11:51] LABS: Alanine Aminotransferase 19 U/L (0-31); Alkaline Phosphatase 58 U/L (39-117); Anion Gap 13 (12-20); Aspartate Amino Transferase 34 U/L (5-31); Bilirubin Total 0.4 mg/dL (0.0-1.0); Blood Urea Nitrogen 14 mg/dL (9-16); Calcium 9.1 mg/dL (8.4-10.2); Carbon Dioxide 29 mmol/L (22-29); Chloride 104 mmol/L (96-108); Cholesterol 119 mg/dL (<200); Estimated Glomerular Filt Rate > 60; Glucose Random 92 mg/dL (60-115); HDL Cholesterol 48 mg/dL (>40); LDL Cholesterol Calculated 57 mg/dL (<100); Potassium 3.8 mmol/L (3.3-5.1); Sodium 142 mmol/L (135-145); Triglycerides 73 mg/dL (<150)
[2024-01-23 12:01] LABS: TSH reflex Free T4 1.12 uIU/mL (0.32-4.0)
[2024-01-23 12:19] LABS: Erythrocyte Sedimentation Rate 25 MM/HR (0-20)
[2024-01-23 14:12] LABS: Appearance Urine Clear; Color Urine Yellow; Glucose Urine UA Negative (Negative); Leukocyte Esterase Urine Negative (Negative); Nitrite Urine Negative (Negative); Specific Gravity - Urine 1.015 (1.005-1.025); Urine Blood Negative (Negative); Urine Ketones Negative (Negative); Urine Protein Negative (Neg-Trace)
[2024-01-23 14:18] LABS: Bacteria Urine None Seen (None Seen); Hyaline Casts Urine 0-2 /LPF (0-2); RBC Urine 0-2 /HPF (0-2); Squamous Epithelial Cell Urine 0-2 /HPF (0-2); WBC Urine 0-5 /HPF (0-5)
[2024-01-23 14:36] LABS: Creatinine Urine 68.07 mg/dL; Protein/Creatinine Ratio, Ur 0.12 (<0.2); Total Protein Urine Random 8 mg/dL (<12)
[2024-01-24 12:53] LABS: Complement C3 90 mg/dL (83-193)
[2024-01-24 14:23] LABS: Anti DNA DS Antibody 21 IU/mL
[2024-01-28 08:18] LABS: Hexagonal Phase Neutralization Negative (Negative); PTT (LAC) Screen 44 sec (<=40)
== END 2024-01-23 09:19 | disposition home or self-care (01) ==
LOC: HO.WFDLDS 09:18
PROVIDERS: Internal Medicine Nephrology; Student in an Organized Health Care Education/Training Program; Visit Provider Nurse Practitioner Family
DX: Z00.00 Encounter for general adult medical examination without abnormal findings (principal); M32.9 Systemic lupus erythematosus, unspecified
CPT/HCPCS: 36415; 80053; 80061; 81001; 82570; 84156; 84443; 85025; 85597; 85598; 85613; 85652; 85730; 86140; 86160; 86225

== ENCOUNTER 2024-03-05 09:42 | Outpatient (AMB) | payer MEDICARE, SELFPAY ==
--- NOTE | 2024-03-05 09:43 | MHC.OFFVIS ---
Vital Signs 03/05/24 09:47 Height 4 ft 9.87 in Weight 99 lb 6.856 oz BMI 20.9 BP 120/68 Blood Pressure Location Rt brachial Position Sitting Respiration 16 Pulse 74 Pulse Source Pulse Oximeter Pulse Oximetry (%) 100 Oxygen Delivery Method Room Air Intake Visit Reasons: SLE Intake Note: Patient presents for SLE. Allergies Penicillins Allergy (Verified 03/05/24 09:46) Chest Pain Sulfa (Sulfonamide Antibiotics) Allergy (Verified 03/05/24 09:46) Chest Pain Medication List - Last Reconciled 03/05/24 by Jayro Sam MD acyclovir 400 mg PO BID 90 days alendronate 70 mg PO QWEEK 90 days atorvastatin 10 mg PO DAILY 90 days azathioprine 75 mg (1.5 x 50 mg) PO DAILY esomeprazole magnesium 20 mg PO DAILY hydroxychloroquine 200 mg PO DAILY oxybutynin chloride 5 mg PO BID 90 days sennosides (senna) 17.2 mg (2 x 8.6 mg) PO DAILY PRN 90 days sucralfate 1 g PO QID 90 days warfarin 4 mg PO DAILY 90 days HPI Comments Details: 58-year-old female with SLE returns for follow-up. Patient states that she is feeling very well overall. On hydroxychloroquine 200 mg daily and azathioprine 75 mg daily. She tapered her prednisone to off over a month ago. Has not had any change in symptoms since she stopped Medrol Initial history: This is a 57-year-old female with a past medical history of lupus who presents as a new patient. Patient is from [place] and she used to follow-up with account development executive Dr. yu for years. She stated that she was diagnosed with lupus as a child. 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 She had an IVC filter placed and was started on Coumadin. Coumadin was discontinued which led to development of right lower extremity DVT. She had been on Coumadin consistently for more than a decade. She had been on azathioprine since at least 2005. She was taking 50 mg daily and this was reduced to 25 mg daily in 2019. Moved to [place] a few years ago and did not establish regular care with a account development executive. Her complaint today is rash on both forearms and chest that started in June. The rashes sometimes itchy. Not necessarily better or worse in the sun. She was prescribed ketoconazole cream by her PCP without improvement. Betamethasone cream was somewhat helpful but did not take the rash away. He denies any other complaints today. Denies any mouth ulcers denies any blood or froth in urine. Denies fevers or weight loss. No history of recurrent miscarriages. Records from patient's previous account development executive Dr. Yu finally received 04/2023: Patient was initially diagnosed with ITP in 2005 and had a splenectomy, followed by DVT and IVC filter placement. At that time also she had skin rashes that were attributed to SLE. She was intermittently on hydroxychloroquine. 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 She required oxycodone and fentanyl patch. This was treated with prednisone, hydroxychloroquine and azathioprine. With good results. She was eventually weaned off pain killers. She was off Medrol since 2019 [facility] Medical History Osteopenia Gastritis Hyperlipemia Hypocalcemia Acid reflux Gallbladder & bile duct stone with obstruction Neuropathy Osteoporosis Pulmonary embolism DVT (deep venous thrombosis) SLE (systemic lupus erythematosus) Kidney stones (~12/06/04) Hernia of abdominal wall (~08/08/06) FH: cholecystectomy (~05/08/14) Surgical History S/P IVC filter H/O splenectomy (~08/08/05) Family History Father Colon cancer Lupus AA (alcohol abuse) Heart disease Mother COVID, Onset Age: 82 Sister COVID Maternal Grandfather Myocardial infarction Maternal Grandmother Malignant melanoma Social History Household Members: Spouse Housing: House Alcohol intake: current Alcohol intake frequency: holidays/special occasions only Patient Tobacco Use Status: Never used Tobacco e-Cigarette/Vaping Use: Never Used Second Hand Smoke Exposure: No Substance Use Type: Caffiene service: No Current occupational status: retired and disabled Current occupational exposures/hazards: No Gender identity: Female Cognitive needs: No Hearing needs: No Vision needs: No Review of Systems Const Denies fever(s) and Denies weight loss Resp Reports no additional complaints Musc Denies arthralgias Skin/Breast Denies rash Physical Exam Vital Signs: Last Vital Signs Pulse 74 03/05/24 09:47 Resp 16 03/05/24 09:47 BP 120/68 03/05/24 09:47 Pulse Ox 100 03/05/24 09:47 Oxygen Delivery Method Room Air 03/05/24 09:47 BMI result Body Mass Index 20.9 Const General: cooperative, healthy appearing and comfortable Nutritional Appearance: average body habitus Orientation/consciousness: patient oriented x3 Limitations: no limitations HEENT Head: Yes normocephalic and Yes atraumatic Mouth: moist mucous membranes Resp Effort & Inspection: normal respiratory effort and able to speak in complete sentences Auscultation: clear to auscultation bilaterally Cardio Rate: regular rate Rhythm: regular rhythm GI Inspection: No distended Palpation (GI): Soft to palpation Skin Other: No active discoid lesions on forearms or chest Neuro General: patient oriented x3 Extrem Other: Osteoarthritic changes of both hands with no active synovitis Normal nailfold capillaroscopy Results Reviewed Results Reviewed: Labs 06/2021? Lipid panel unremarkable? INR 2.5? CMP unremarkable? Labs 04/2022? Ferritin 207 (15-200) Serum iron 53 (35-150) TIBC 261 (250-450) Iron saturation 20.3 % WBC 3.53? ?380 lymphocytes and 2.85 neutrophil Hemoglobin 10.9.? 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 She is on hydroxychloroquine 200 mg daily, azathioprine 75 mg daily Medrol was tapered off over a month ago. Doing very well overall. No signs of active SLE on exam. Inflammatory markers improving, dsDNA trending down, anemia improving. No significant proteinuria Continue current meds Labs before next visit 4 months (2) Long-term use of hydroxychloroquine: Comment: Eye exam okay 06/2023 Code(s): Z79.899 - Other custodial (current) drug therapy Category: Medical Plan: Advised yearly ophthalmology follow-up (3) Osteoporosis: Comment: 07/02/2020 Code(s): M81.0 - Age-related osteoporosis without current pathological fracture Category: Medical Qualifiers: Osteoporosis type: age-related Presence of current pathological fracture: without current pathological fracture Qualified Code(s): M81.0 - Age-related osteoporosis without current pathological fracture Plan: On alendronate prescribed by PCP. Patient stated that her most recent DEXA scan was last year at [facility], will attempt to retrieve records (4) Encounter for monitoring azathioprine therapy: Code(s): Z51.81 - Encounter for therapeutic drug level monitoring; Z79.624 - long term care phlebotomist (current) use of inhibitors of nucleotide synthesis Category: Medical Plan: Monitor safety labs for azathioprine. Patient has macrocytosis likely induced by azathioprine. But no significant anemia. Will continue to monitor (5) Immunization counseling: Code(s): Z71.85 - Encounter for immunization safety counseling Category: Medical Plan: Patient stated that she received 8 COVID vaccines in total. She just received a booster recently Advised patient to get the flu vaccine for this season and RSV vaccine. She states that she will get the RSV vaccine as soon as she turns 59 She received the Shingrix vaccine in 2019 and pneumococcal vaccinations around the same time Plan I spent 35 minutes reviewing patient's chart, evaluating patient, ordering diagnostic workup, counseling patient and documenting in the chart Orders: Orders Anti DNA DS Antibody 4 Months M32.19 - Other organ or system involvement in systemic lupus erythematosus, Z51.81 - Encounter for therapeutic drug level monitoring, Z79.624 - [facility] (current) use of inhibitors of nucleotide synthesis C Reactive Protein 4 Months M32.19 - Other organ or system involvement in systemic lupus erythematosus, Z51.81 - Encounter for therapeutic drug level monitoring, Z79.624 - [facility] (current) use of inhibitors of nucleotide synthesis UA w Microscopic 4 Months M32.19 - Other organ or system involvement in systemic lupus erythematosus, Z51.81 - Encounter for therapeutic drug level monitoring, Z79.624 - long term care phlebotomist (current) use of inhibitors of nucleotide synthesis Complement C3 4 Months M32.19 - Other organ or system involvement in systemic lupus erythematosus, Z51.81 - Encounter for therapeutic drug level monitoring, Z79.624 - [facility] (current) use of inhibitors of nucleotide synthesis Complement C4 4 Months M32.19 - Other organ or system involvement in systemic lupus erythematosus, Z51.81 - Encounter for therapeutic drug level monitoring, Z79.624 - long term care phlebotomist (current) use of inhibitors of nucleotide synthesis Erythrocyte Sedimentation Rate 4 Months M32.19 - Other organ or system involvement in systemic lupus erythematosus, Z51.81 - Encounter for therapeutic drug level monitoring, Z79.624 - [facility] (current) use of inhibitors of nucleotide synthesis Protein Creatinine Ratio, Ur 4 Months M32.19 - Other organ or system involvement in systemic lupus erythematosus, Z51.81 - Encounter for therapeutic drug level monitoring, Z79.624 - [facility] (current) use of inhibitors of nucleotide synthesis Complete Blood Count Auto Diff 4 Months M32.19 - Other organ or system involvement in systemic lupus erythematosus, Z51.81 - Encounter for therapeutic drug level monitoring, Z79.624 - long term care phlebotomist (current) use of inhibitors of nucleotide synthesis Comprehensive Met. Panel 4 Months M32.19 - Other organ or system involvement in systemic lupus erythematosus, Z51.81 - Encounter for therapeutic drug level monitoring, Z79.624 - [facility] (current) use of inhibitors of nucleotide synthesis Medications: Refilled hydroxychloroquine 200 mg PO DAILY 120 tabs 0RF azathioprine 75 mg (1.5 x 50 mg) PO DAILY 180 tabs 0RF Coding Level of Care Code Est Pt Level 5 (98433) Complex EM visit Add On G2211 Diagnoses Systemic lupus erythematosus with other organ involvement, unspecified SLE type M32.19 Systemic lupus erythematosus type: unspecified Systemic lupus erythematosus organ involvement: other Long-term use of hydroxychloroquine Z79.899 Age-related osteoporosis without current pathological fracture M81.0 Osteoporosis type: age-related Presence of current pathological fracture: without current pathological fracture Encounter for monitoring azathioprine therapy Z51.81; Z79.624 Immunization counseling Z71.85
[2024-03-05 09:47] VITALS: BP 120/68; PULSE 74; RESP 16; O2SAT 100; BMI 20.9
== END 2024-03-05 10:02 | disposition home or self-care (01) ==
PROVIDERS: PCP Nurse Practitioner Family; Visit Provider Student in an Organized Health Care Education/Training Program
DX: M32.19 Other organ or system involvement in systemic lupus erythematosus (principal); Z79.899 Other long term (current) drug therapy; M81.0 Age-related osteoporosis without current pathological fracture; Z51.81 Encounter for therapeutic drug level monitoring; Z79.624 Long term (current) use of inhibitors of nucleotide synthesis; Z71.85 Encounter for immunization safety counseling
CPT/HCPCS: 99214; G2211

== ENCOUNTER → 2024-03-05 09:42 | Outpatient (BNVA) | payer MEDICARE, SELFPAY | PROVIDERS: PCP Nurse Practitioner Family; Visit Provider Student in an Organized Health Care Education/Training Program | DX: M32.19 Other organ or system involvement in systemic lupus erythematosus (principal); M81.0 Age-related osteoporosis without current pathological fracture; Z51.81 Encounter for therapeutic drug level monitoring; Z79.624 Long term (current) use of inhibitors of nucleotide synthesis; Z71.85 Encounter for immunization safety counseling; Z79.899 Other long term (current) drug therapy | CPT/HCPCS: 99212 ==

== ENCOUNTER 2024-05-22 09:12 | Outpatient (REF) | payer MEDICARE, SELFPAY ==
[2024-05-22 10:51] LABS: Basophils Percent Auto 0.9 % (0-2); Eosinophils Percent Auto 1.9 % (0-4); Hematocrit 35.5 % (37.0-47.0); Hemoglobin 11.9 g/dl (12.0-16.0); Imm Gran Abs Auto 0.01 X10*3/uL (0.00-0.03); Imm Gran Pct Auto 0.5 % (0.0-0.4); Lymphocytes Absolute Auto 0.5 X10*3/uL (1.2-4.9); Lymphocytes Percent Auto 23.8 % (20-40); MANUAL DIFF FLAG SCAN; Mean Corpuscular HGB Conc 33.5 g/dl (31.0-35.0); Mean Corpuscular Hemoglobin 35.2 pg (27.0-33.0); Mean Platelet Volume 10.2 fL (9.4-12.3); Monocytes Absolute Auto 0.2 X10*3/uL (0.1-1.2); Monocytes Percent Auto 9.3 % (2-11); NRBC Pct Auto 0.9 /100WBC (0.0-0.2); Neutrophils Absolute Auto 1.4 x10*3/uL (2.0-8.3); Neutrophils Percent Auto 63.6 % (45-73); Platelet Count 247 X10*3/uL (160-400); Red Blood Count 3.38 X10*6/uL (4.20-5.50); Red Cell Distribution Width 14.1 % (11.0-16.0); SCAN SMEAR FLAG 1
[2024-05-22 10:57] LABS: White Blood Count 2.1 X10*3/uL (4.8-10.8)
[2024-05-22 11:12] LABS: Appearance Urine Clear; Color Urine Yellow; Glucose Urine UA Negative (Negative); Leukocyte Esterase Urine Negative (Negative); Nitrite Urine Negative (Negative); PH 6.5 (5.0-9.0); Specific Gravity - Urine 1.015 (1.005-1.025); Urine Blood Negative (Negative); Urine Ketones Negative (Negative); Urine Protein Trace mg/dL (Neg-Trace)
[2024-05-22 11:16] LABS: Bacteria Urine None Seen (None Seen); Hyaline Casts Urine 0-2 /LPF (0-2); RBC Urine 0-2 /HPF (0-2); Squamous Epithelial Cell Urine 0-2 /HPF (0-2); WBC Urine 0-5 /HPF (0-5)
[2024-05-22 11:29] LABS: Creatinine Urine 68.01 mg/dL; Protein/Creatinine Ratio, Ur 0.16 (<0.2); Total Protein Urine Random 11 mg/dL (<12)
[2024-05-22 11:31] LABS: Erythrocyte Sedimentation Rate 23 MM/HR (0-20)
[2024-05-22 11:36] LABS: SLIDE REVIEW VERIFIED
[2024-05-22 11:56] LABS: Alanine Aminotransferase 27 U/L (0-31); Albumin Level 4.2 g/dL (3.5-5.0); Alkaline Phosphatase 66 U/L (39-117); Anion Gap 11 (12-20); Aspartate Amino Transferase 42 U/L (5-31); Bilirubin Total 0.3 mg/dL (0.0-1.0); Blood Urea Nitrogen 12 mg/dL (9-16); C Reactive Protein < 0.10 mg/dL (< or = 0.50); Calcium 8.9 mg/dL (8.4-10.2); Carbon Dioxide 28 mmol/L (22-29); Chloride 107 mmol/L (96-108); Estimated Glomerular Filt Rate > 60; Glucose Random 86 mg/dL (60-115); Potassium 3.8 mmol/L (3.3-5.1); Sodium 142 mmol/L (135-145); Total Protein 8.6 g/dL (6.5-8.0)
[2024-05-23 20:08] LABS: Anti DNA DS Antibody 15 IU/mL
[2024-05-24 14:23] LABS: Complement C3 109 mg/dL (83-193)
== END 2024-05-22 09:13 | disposition home or self-care (01) ==
LOC: HO.LAB 09:12
PROVIDERS: PCP Nurse Practitioner Primary Care; Referring Provider Internal Medicine Nephrology; Visit Provider Student in an Organized Health Care Education/Training Program
DX: M32.19 Other organ or system involvement in systemic lupus erythematosus (principal); M32.9 Systemic lupus erythematosus, unspecified
CPT/HCPCS: 36415; 80053; 81001; 81003; 82570; 84156; 85025; 85652; 86140; 86160; 86225

== ENCOUNTER 2024-06-21 09:33 | Outpatient (REF) | payer MEDICARE, SELFPAY ==
[2024-06-21 11:24] LABS: Basophils Percent Auto 1.1 % (0-2); Eosinophils Absolute Auto 0.1 X10*3/uL (0.0-0.4); Eosinophils Percent Auto 1.9 % (0-4); Hematocrit 32.8 % (37.0-47.0); Hemoglobin 11.2 g/dl (12.0-16.0); Imm Gran Abs Auto 0.02 X10*3/uL (0.00-0.03); Imm Gran Pct Auto 0.8 % (0.0-0.4); Lymphocytes Absolute Auto 0.5 X10*3/uL (1.2-4.9); Lymphocytes Percent Auto 19.5 % (20-40); MANUAL DIFF FLAG SCAN; Mean Corpuscular HGB Conc 34.1 g/dl (31.0-35.0); Mean Corpuscular Hemoglobin 35.2 pg (27.0-33.0); Mean Corpuscular Volume 103.1 fL (80.0-98.0); Monocytes Absolute Auto 0.2 X10*3/uL (0.1-1.2); Monocytes Percent Auto 9.2 % (2-11); Neutrophils Absolute Auto 1.8 x10*3/uL (2.0-8.3); Neutrophils Percent Auto 67.5 % (45-73); PLT CLUMP 1; Red Blood Count 3.18 X10*6/uL (4.20-5.50); Red Cell Distribution Width 14.3 % (11.0-16.0); SCAN SMEAR FLAG 1
[2024-06-21 11:26] LABS: NRBC Pct Auto 2.3 /100WBC (0.0-0.2)
[2024-06-21 11:27] LABS: White Blood Count 2.6 X10*3/uL (4.8-10.8)
[2024-06-21 11:35] LABS: Alanine Aminotransferase 26 U/L (0-31); Alkaline Phosphatase 68 U/L (39-117); Anion Gap 10 (12-20); Aspartate Amino Transferase 57 U/L (5-31); Bilirubin Total 0.3 mg/dL (0.0-1.0); Blood Urea Nitrogen 12 mg/dL (9-16); C Reactive Protein < 0.10 mg/dL (< or = 0.50); Carbon Dioxide 29 mmol/L (22-29); Chloride 106 mmol/L (96-108); Estimated Glomerular Filt Rate > 60; Glucose Random 88 mg/dL (60-115); Sodium 141 mmol/L (135-145); Total Protein 8.3 g/dL (6.5-8.0)
[2024-06-21 11:52] LABS: Erythrocyte Sedimentation Rate 26 MM/HR (0-20)
[2024-06-21 11:53] LABS: Platelet Count 262 X10*3/uL (160-400); SLIDE REVIEW VERIFIED
[2024-06-21 14:08] LABS: Appearance Urine Clear; Color Urine Yellow; Glucose Urine UA Negative (Negative); Leukocyte Esterase Urine Negative (Negative); Nitrite Urine Negative (Negative); Urine Blood Negative (Negative); Urine Ketones Negative (Negative); Urine Protein Negative (Neg-Trace)
[2024-06-21 14:14] LABS: Bacteria Urine None Seen (None Seen); Hyaline Casts Urine 0-2 /LPF (0-2); RBC Urine 0-2 /HPF (0-2); Squamous Epithelial Cell Urine 0-2 /HPF (0-2); WBC Urine 0-5 /HPF (0-5)
[2024-06-21 14:41] LABS: Creatinine Urine 29.33 mg/dL; Total Protein Urine Random < 7 mg/dL (<12)
[2024-06-24 20:54] LABS: Complement C3 109 mg/dL (83-193)
[2024-06-25 22:03] LABS: Anti DNA DS Antibody 18 IU/mL
== END 2024-06-21 09:34 | disposition home or self-care (01) ==
LOC: HO.WFDLDS 09:33
PROVIDERS: Visit Provider Student in an Organized Health Care Education/Training Program
DX: M32.19 Other organ or system involvement in systemic lupus erythematosus (principal); Z79.624 Long term (current) use of inhibitors of nucleotide synthesis; Z51.81 Encounter for therapeutic drug level monitoring; M32.9 Systemic lupus erythematosus, unspecified
CPT/HCPCS: 36415; 80053; 81001; 82570; 84156; 85025; 85652; 86140; 86160; 86225

== ENCOUNTER 2024-07-01 10:15 | Outpatient (AMB) | payer MEDICARE, SELFPAY ==
[2024-07-01 10:22] VITALS: BP 118/74; PULSE 68; O2SAT 100; BMI 22.1
--- NOTE | 2024-07-01 10:22 | MHC.OFFVIS ---
Vital Signs 07/01/24 10:22 Height 4 ft 9.87 in Weight 105 lb 2.568 oz BMI 22.1 BP 118/74 Blood Pressure Location Lt brachial Position Sitting Pulse 68 Pulse Source Pulse Oximeter Pulse Oximetry (%) 100 Oxygen Delivery Method Room Air Intake Visit Reasons: SLE Intake Note: Patient last seen by Doctor Jayro Sam on 03/05/24. Presents today for SLE follow up and test results. Allergies Penicillins Allergy (Verified 07/01/24 10:25) Chest Pain Sulfa (Sulfonamide Antibiotics) Allergy (Verified 07/01/24 10:25) Chest Pain Medication List - Last Reconciled 07/01/24 by Jayro Sam MD acyclovir 400 mg PO BID 90 days alendronate 70 mg PO QWEEK 90 days atorvastatin 10 mg PO DAILY 90 days azathioprine 50 mg PO DAILY esomeprazole magnesium 20 mg PO DAILY hydroxychloroquine 200 mg PO DAILY oxybutynin chloride 5 mg PO BID 90 days sennosides (senna) 17.2 mg (2 x 8.6 mg) PO DAILY PRN 90 days sucralfate 1 g PO QID 90 days warfarin 4 mg PO DAILY 90 days HPI Comments Details: 59-year-old female with SLE returns for follow-up. Patient states that she is feeling very well overall. On hydroxychloroquine 200 mg daily and azathioprine 50 mg daily. Recent blood work showed neutropenia and we lowered his azathioprine from 75 mg daily to 50 mg daily. Today she denies any rashes or fevers. She denies any recent infections Initial history: This is a 57-year-old female with a past medical history of lupus who presents as a new patient. Patient is from [place] and she used to follow-up with transmission and protection engineer Dr. yu for years. She stated that she was diagnosed with lupus as a child. 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 She had an IVC filter placed and was started on Coumadin. Coumadin was discontinued which led to development of right lower extremity DVT. She had been on Coumadin consistently for more than a decade. She had been on azathioprine since at least 2005. She was taking 50 mg daily and this was reduced to 25 mg daily in 2019. Moved to [place] a few years ago and did not establish regular care with a transmission and protection engineer. Her complaint today is rash on both forearms and chest that started in June. The rashes sometimes itchy. Not necessarily better or worse in the sun. She was prescribed ketoconazole cream by her PCP without improvement. Betamethasone cream was somewhat helpful but did not take the rash away. He denies any other complaints today. Denies any mouth ulcers denies any blood or froth in urine. Denies fevers or weight loss. No history of recurrent miscarriages. Records from patient's previous transmission and protection engineer Dr. Yu finally received 04/2023: Patient was initially diagnosed with ITP in 2005 and had a splenectomy, followed by DVT and IVC filter placement. At that time also she had skin rashes that were attributed to SLE. She was intermittently on hydroxychloroquine. 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 She required oxycodone and fentanyl patch. This was treated with prednisone, hydroxychloroquine and azathioprine. With good results. She was eventually weaned off pain killers. She was off Medrol since 2019 [facility] Medical History Osteopenia Gastritis Hyperlipemia Hypocalcemia Acid reflux Gallbladder & bile duct stone with obstruction Neuropathy Osteoporosis Pulmonary embolism DVT (deep venous thrombosis) SLE (systemic lupus erythematosus) Kidney stones (~12/06/04) Hernia of abdominal wall (~08/08/06) FH: cholecystectomy (~05/08/14) Surgical History S/P IVC filter H/O splenectomy (~08/08/05) Family History Father Colon cancer Lupus AA (alcohol abuse) Heart disease Mother COVID, Onset Age: 82 Sister COVID Maternal Grandfather Myocardial infarction Maternal Grandmother Malignant melanoma Social History Household Members: Spouse Housing: House Alcohol intake: current Alcohol intake frequency: holidays/special occasions only Patient Tobacco Use Status: Never used Tobacco e-Cigarette/Vaping Use: Never Used Second Hand Smoke Exposure: No Substance Use Type: Caffiene service: No Current occupational status: retired and disabled Current occupational exposures/hazards: No Gender identity: Female Cognitive needs: No Hearing needs: No Vision needs: No Female Reproductive History Menstrual Total pregnancies: 1 Full term: 1 Review of Systems Const Denies fever(s) and Denies weight loss Resp Reports no additional complaints Musc Denies arthralgias Skin/Breast Denies rash Physical Exam Vital Signs: Last Vital Signs Pulse 68 07/01/24 10:22 BP 118/74 07/01/24 10:22 Pulse Ox 100 07/01/24 10:22 Oxygen Delivery Method Room Air 07/01/24 10:22 BMI result Body Mass Index 22.1 Const General: cooperative, healthy appearing and comfortable Nutritional Appearance: average body habitus Orientation/consciousness: patient oriented x3 Limitations: no limitations HEENT Head: Yes normocephalic and Yes atraumatic Mouth: moist mucous membranes Resp Effort & Inspection: normal respiratory effort and able to speak in complete sentences Auscultation: clear to auscultation bilaterally Cardio Rate: regular rate Rhythm: regular rhythm GI Inspection: No distended Palpation (GI): Soft to palpation Skin Other: No active discoid lesions on forearms or chest Neuro General: patient oriented x3 Extrem Other: Osteoarthritic changes of both hands with no active synovitis Normal nailfold capillaroscopy Assessment & Plan Assessment & Plan (1) SLE (systemic lupus erythematosus): Comment: 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 neutropenia Medrol tapered off 01/2024 Code(s): M32.9 - Systemic lupus erythematosus, unspecified Category: Medical Qualifiers: Systemic lupus erythematosus type: unspecified Systemic lupus erythematosus organ involvement: other Qualified Code(s): M32.19 - Other organ or system involvement in systemic lupus erythematosus Plan: This is a 59-year-old female SLE,( ITP s/p splenectomy and multiple DVTs s/p IVC filter on chronic Coumadin therapy, discoid lupus, ++ SSa, +++DsDNA) who presents for follow-up. She is on hydroxychloroquine 200 mg daily, azathioprine 50 mg daily Medrol Doing very well overall. No signs of active SLE on exam. Continue current meds Labs before next visit 4 months (2) Long-term use of hydroxychloroquine: Comment: Eye exam okay 06/2023 Code(s): Z79.899 - Other detention (current) drug therapy Category: Medical Plan: Advised yearly ophthalmology follow-up (3) Osteoporosis: Comment: 07/02/2020 Code(s): M81.0 - Age-related osteoporosis without current pathological fracture Category: Medical Qualifiers: Osteoporosis type: age-related Presence of current pathological fracture: without current pathological fracture Qualified Code(s): M81.0 - Age-related osteoporosis without current pathological fracture Plan: On alendronate prescribed by PCP. She has a repeat DEXA scan ordered by PCP (4) Encounter for monitoring azathioprine therapy: Code(s): Z51.81 - Encounter for therapeutic drug level monitoring; Z79.624 - vermin exterminator (current) use of inhibitors of nucleotide synthesis Category: Medical Plan: Monitor safety labs for azathioprine. Patient has macrocytosis likely induced by azathioprine. But no significant anemia. She continues to have some neutropenia, I reduced her azathioprine to 50 mg daily She has transaminitis that predates starting azathioprine. (5) Immunization counseling: Code(s): Z71.85 - Encounter for immunization safety counseling Category: Medical Plan: Patient stated that she received 8 COVID vaccines in total. She received a booster this season She received the flu vaccine and RSV vaccine this season She received the Shingrix vaccine in 2019 and pneumococcal vaccinations around the same time Plan I spent 35 minutes reviewing patient's chart, evaluating patient, ordering diagnostic workup, counseling patient and documenting in the chart Orders: Orders Anti DNA DS Antibody 4 Months M32.19 - Other organ or system involvement in systemic lupus erythematosus, Z51.81 - Encounter for therapeutic drug level monitoring, Z79.624 - vermin exterminator (current) use of inhibitors of nucleotide synthesis Complement C4 4 Months M32.19 - Other organ or system involvement in systemic lupus erythematosus, Z51.81 - Encounter for therapeutic drug level monitoring, Z79.624 - vermin exterminator (current) use of inhibitors of nucleotide synthesis Erythrocyte Sedimentation Rate 4 Months M32.19 - Other organ or system involvement in systemic lupus erythematosus, Z51.81 - Encounter for therapeutic drug level monitoring, Z79.624 - care home (current) use of inhibitors of nucleotide synthesis UA w Microscopic 4 Months M32.19 - Other organ or system involvement in systemic lupus erythematosus, Z51.81 - Encounter for therapeutic drug level monitoring, Z79.624 - care home (current) use of inhibitors of nucleotide synthesis Complete Blood Count Auto Diff 4 Months M32.19 - Other organ or system involvement in systemic lupus erythematosus, Z51.81 - Encounter for therapeutic drug level monitoring, Z79.624 - care home (current) use of inhibitors of nucleotide synthesis Comprehensive Met. Panel 4 Months M32.19 - Other organ or system involvement in systemic lupus erythematosus, Z51.81 - Encounter for therapeutic drug level monitoring, Z79.624 - vermin exterminator (current) use of inhibitors of nucleotide synthesis Complement C3 4 Months M32.19 - Other organ or system involvement in systemic lupus erythematosus, Z51.81 - Encounter for therapeutic drug level monitoring, Z79.624 - care home (current) use of inhibitors of nucleotide synthesis C Reactive Protein 4 Months M32.19 - Other organ or system involvement in systemic lupus erythematosus, Z51.81 - Encounter for therapeutic drug level monitoring, Z79.624 - vermin exterminator (current) use of inhibitors of nucleotide synthesis Protein Creatinine Ratio, Ur 4 Months M32.19 - Other organ or system involvement in systemic lupus erythematosus, Z51.81 - Encounter for therapeutic drug level monitoring, Z79.624 - care home (current) use of inhibitors of nucleotide synthesis Medications: Changed From azathioprine 75 mg (1.5 x 50 mg) PO DAILY 180 tabs 0RF To azathioprine 50 mg PO DAILY 90 tabs 1RF Refilled hydroxychloroquine 200 mg PO DAILY 90 tabs 1RF Coding Level of Care Code Est Pt Level 4 (24105) Complex EM visit Add On G2211 Diagnoses Systemic lupus erythematosus with other organ involvement, unspecified SLE type M32.19 Systemic lupus erythematosus type: unspecified Systemic lupus erythematosus organ involvement: other Long-term use of hydroxychloroquine Z79.899 Age-related osteoporosis without current pathological fracture M81.0 Osteoporosis type: age-related Presence of current pathological fracture: without current pathological fracture Encounter for monitoring azathioprine therapy Z51.81; Z79.624 Immunization counseling Z71.85
== END 2024-07-01 10:51 | disposition home or self-care (01) ==
PROVIDERS: PCP Nurse Practitioner Primary Care; Visit Provider Student in an Organized Health Care Education/Training Program
DX: M32.19 Other organ or system involvement in systemic lupus erythematosus (principal); Z79.899 Other long term (current) drug therapy; M81.0 Age-related osteoporosis without current pathological fracture; Z51.81 Encounter for therapeutic drug level monitoring; Z79.624 Long term (current) use of inhibitors of nucleotide synthesis; Z71.85 Encounter for immunization safety counseling
CPT/HCPCS: 99214; G2211

== ENCOUNTER → 2024-07-01 10:15 | Outpatient (BNVA) | payer MEDICARE, SELFPAY | PROVIDERS: PCP Nurse Practitioner Primary Care; Visit Provider Student in an Organized Health Care Education/Training Program | DX: M32.19 Other organ or system involvement in systemic lupus erythematosus (principal); M81.0 Age-related osteoporosis without current pathological fracture; Z79.899 Other long term (current) drug therapy; Z51.81 Encounter for therapeutic drug level monitoring; Z71.85 Encounter for immunization safety counseling; Z79.624 Long term (current) use of inhibitors of nucleotide synthesis | CPT/HCPCS: 99212 ==

== ENCOUNTER 2024-07-30 12:46 | Outpatient (REF) | payer MEDICARE, SELFPAY ==
--- NOTE | ~2024-07-30 | MM_ITS ---
EXAMINATION: DXA BONE DENSITY AXIAL HISTORY: Estrogen deficiency TECHNIQUE: [employer] Dual energy absorptiometry (DEXA) of the lumbar spine, total left hip, and femoral neck was performed. COMPARISON: There are no prior studies for comparison. FINDINGS: The bone mineral density of the lumbar spine is 0.843 with a T-score of -2.8, and a Z-score of -1.0. The bone mineral density of the left total hip is 0.727 with a T-score of -2.2, and a Z-score of -0.8. The bone mineral density of the left femoral neck is 0.675 with a T-score of -2.6, and a Z-score of -1.0. MM/XR DEXA axial skeleton IMPRESSION: Based on bone mineral density, and according to World Health Organization (WHO) criteria, the diagnosis is consistent with osteoporosis. All bone density values are in grams per centimeter squared (g/cm2). Statistically, 68% of repeat scans fall within 1 SD (+/- 0.010 g/cm2 for AP spine L1-L4) and 1 SD (+/- 0.012 g/cm2 for femur total) FRAX is a trademark of the [employer] [place] for Metabolic Bone Disease, a World Health Organization (WHO) Collaborating Center. Electronically signed by: Mj Martinez MD 07/30/2024 03:24 PM [facility]
--- OUTSIDE RECORDS SUMMARY | 2024-07-30 13:53 | XMS_ITS | Encounter Summary ---
Author Organization [employer] Address [address] [place] [address] [address] [place] [address] Care Team Providers Care Building Rental Manager Name Role Phone Unavailable Primary Care Provider Unavailabl e Encounter Details Date Type Department Care Team (Late st Contact Info) Description 07/26/2022 Abstract [facility] [address] [place] [address] Travis Carpenter BDS [address] [place] [address] Social History Tobacco Use Types Packs/Day Years Used Date Smoking Tobacco: Never Smokeless Tobacco: Never Comments Unknown Sex and Gender Information Value Date Recorded Sex Assigned at Female 07/25/2022 3:03 PM EST Legal Sex Female 2:55 PM EST Gender Identity Female 07/25/2022 3:03 PM EST Sexual Orientation Straight 07/25/2022 3: 03 PM EST COVID-19 Exposure Response Date Recorded In the last 10 days, have yo u been in contact with someone who was confirmed or suspected to have Coronavirus/COVID-19? No / Unsure 07/26/2022 12:19 PM EST documented as of this encounter Plan of Treatment Not on file documented as of this encounter Visit Diagnoses Not on filedocumented in this encounter
--- OUTSIDE RECORDS SUMMARY | 2024-07-30 13:53 | XMS_ITS | Clinical Summary ---
Author Organization [employer] Address [address] [place] [address] 7[address] [place] [address] Care Team Providers Care Customs Brokerage Agent Name Role Phone Unavailable Primary Care Provider Unavailabl e Allergies Active Allergy Reactions Criticality Noted Date Comments Penicillins 07/26/2022 Sulfa Antibiotics Anaphylaxis High 07/26/2022 Medications warfarin (Coumadin) 4 MG tablet TAKE 1 TABLET BY MOUTH EVERY DAY FOR 6 DAYS THEN TAKE 1 AND 1/2 TABLETS BY MOUTH ON DAY 7 07/02/2022 Active sucralfate (Carafate) 1 g tablet Take 1 g by mouth 4 times daily. 07/02/2022 Active oxybutynin (Ditropan) 5 MG tablet Take 5 mg by mouth 2 times daily. 07/21/2022 Active atorvastatin (Lipitor) 10 MG tablet Take 10 mg by mouth in the morning. 07/08/2022 Active acyclovir (Zovirax) 400 MG tablet Take 400 mg by mouth 2 times daily. 05/01/2022 Active alendronate (Fosamax) 70 MG tablet Take 70 mg by mouth 1 (one) time per week. 06/26/2022 Active senna (Senokot) 8.6 MG tablet TAKE 2 TABLETS BY MOUTH EVERY DAY NEEDED 07/17/2022 Active azaTHIOprine (Imuran) 50 MG tablet Take 25 mg by mouth in the morning. 07/17/2022 Active hydrOXYzine HCl (Atarax) 10 MG tablet Take by mouth. Active cyclobenzaprine (Flexeril) 10 MG tablet Take 5 mg by mouth if needed in the morning, at noon, and at bedtime for muscle spasms. Active Social History Tobacco Use Types Packs/Day Years Used Date Smoking Tobacco: Never Smokeless Tobacco: Never Tobacco Cessation:Counseling Given: Not Answered Comments Unknown Sex and Gender Information Value Date Recorded Sex Assigned at Female 07/25/2022 3:03 PM EST Legal Sex Female 2:55 PM EST Gender Identity Female 07/25/2022 3:03 PM EST Sexual Orientation Straight 07/25/2022 3: 03 PM EST Last Filed Vital Signs Vital Sign Reading Time Taken Comments Blood Pressure 114/63 07/26/2022 1:39 PM EST Pulse 76 07/26/2022 1:39 PM EST Temperature - - Respiratory Rate - - Oxygen Saturation - - Inhaled Oxygen Concentration - - Weight - - Height - - Body Mass Index - - Plan of Treatment Health Maintenance Due Date Last Done Comments CT Colonography 1964 Colonoscopy 1964 Colorectal Cancer Screening 1964 Dental Oral Exam 1964 Dental Prophylaxis 1964 Dental X-Ray: Bitewings 1964 Dental X-Ray: Full Mouth 1964 Depression Screening 1964 FIT DNA/Cologuard 1964 FIT 1964 FOBT 1964 HIV Screening 1964 SDOH Screening 1964 Sigmoidoscopy 1964 Alcohol/Substance Use Screening 1976 Hepatitis C Screening 1982 DTaP/Tdap/Td Vaccines (1 - Tdap) 1983 Pneumococcal Vaccine: 50+ Years (1 of 2 - PCV) 1983 Zoster Vaccines (1 of 2) 1983 Pap Smear 1985 Cervical Cancer Screening 1994 HPV/Cotest 1994 Mammogram 2004 Tobacco Screening 07/26/2023 07/26/2022 COVID-19 Vaccine ( season) 2024 03/02/2022, 08/02/2021, 03/05/2021, Additional history exists Influenza Vaccine (#1) 2024 2, 03/22/2021, 02/26/2020 RSV Patients and Patients Aged 60 years or older (1 - Risk 60-74 years 1-dose series) 2024 HIB Vaccines Aged Out No longer eligi ble based on patient's age to complete this topic HPV Vaccines Aged Out No longer eligi ble based on patient's age to complete this topic Hepatitis A Vaccines Aged Out No long er eligible based on patient's age to complete this topic Hepatitis B Vaccines Aged Out No long er eligible based on patient's age to complete this topic IPV Vaccines Aged Out No longer eligi ble based on patient's age to complete this topic Meningococcal Vaccine Aged Out No naya lawson eligible based on patient's age to complete this topic RSV under 20 months Aged Out No longe r eligible based on patient's age to complete this topic Rotavirus Vaccines Aged Out No longer eligible based on patient's age to complete this topic Insurance [facility] PPO
== END 2024-07-30 12:47 | disposition home or self-care (01) ==
LOC: HO.MAMMO 12:46
PROVIDERS: PCP Nurse Practitioner Primary Care; Visit Provider Nurse Practitioner Primary Care
DX: Z12.31 Encounter for screening mammogram for malignant neoplasm of breast (principal); Z13.820 Encounter for screening for osteoporosis; M81.8 Other osteoporosis without current pathological fracture
CPT/HCPCS: 77063; 77067; 77080

== ENCOUNTER → 2024-07-30 13:30 | Outpatient (BNV) | payer MEDICARE, SELFPAY | PROVIDERS: PCP Nurse Practitioner Primary Care; Visit Provider Radiology Diagnostic Radiology | DX: Z12.31 Encounter for screening mammogram for malignant neoplasm of breast (principal) | CPT/HCPCS: 77063; 77067 ==

== ENCOUNTER 2024-09-11 09:43 | Outpatient (AMB) | payer MEDICARE, SELFPAY ==
--- NOTE | 2024-09-11 09:52 | HO.NEPHOV ---
Vital Signs 09/11/24 09:54 Height 4 ft 9 in Weight 106 lb 2 oz BMI 23.0 BP 102/50 L Blood Pressure Location Lt brachial Position Sitting Intake Visit Reasons: 1 Year- [facility] Channel Worker Required: No Accompanied by: Self / Same As Patient Allergies Penicillins Allergy (Verified 09/11/24 09:54) Chest Pain Sulfa (Sulfonamide Antibiotics) Allergy (Verified 09/11/24 09:54) Chest Pain HPI Comments Details: Stephanie was seen in follow up of her H/O M/S hematuria and proteinuria on a back drop of SLE. She has lupus for a long time. She had had multiple medication changes but feels her symptomatology of lupus including skin rashes are better with recent changes in immunosuppression. She does not have any macroscopic hematuria, edema, SOB, PND, orthopnea, GI symptoms, hemoptysis, melena. She has H/O DVT and had a IVC filter. She denied H/O miscarriages or H/O APLA. She remains on anti coagulation. She does not take excess NSAID's. She has had H/O renal stones in the past. She feels well. ON LICENSE OF [facility] Medical History Osteopenia Gastritis Hyperlipemia Hypocalcemia Acid reflux Gallbladder & bile duct stone with obstruction Neuropathy Osteoporosis Pulmonary embolism DVT (deep venous thrombosis) SLE (systemic lupus erythematosus) Kidney stones (~12/06/04) Hernia of abdominal wall (~08/08/06) FH: cholecystectomy (~05/08/14) Surgical History S/P IVC filter H/O splenectomy (~08/08/05) Family History Father Colon cancer Lupus AA (alcohol abuse) Heart disease Mother COVID, Onset Age: 82 Sister COVID Maternal Grandfather Myocardial infarction Maternal Grandmother Malignant melanoma Social History Household Members: Spouse Housing: House Alcohol intake: current Alcohol intake frequency: holidays/special occasions only Patient Tobacco Use Status: Never used Tobacco e-Cigarette/Vaping Use: Never Used Second Hand Smoke Exposure: No Substance Use Type: Caffiene service: No Current occupational status: retired and disabled Current occupational exposures/hazards: No Gender identity: Female Cognitive needs: No Hearing needs: No Vision needs: No Review of Systems Const All systems reviewed & are unremarkable except as noted in HPI and below Physical Exam Vital Signs: Last Vital Signs BP 102/50 L 09/11/24 09:54 BMI result Body Mass Index 23.0 Const General: comfortable and no acute distress Orientation/consciousness: patient oriented x3 HEENT Head: Yes normocephalic Mouth: Normal oral and palatal mucosa present Eyes EOM: EOMs intact bilaterally Neck Neck: Yes supple Resp Auscultation: clear to auscultation bilaterally Cardio Jugular venous distension: no JVD Rate: regular rate GI Palpation (GI): Soft to palpation Auscultation: normal bowel sounds General: Yes no CVA tenderness Back/Spine/Pelvis Back: no CVA tenderness Neuro General: patient oriented x3 and moves all extremities Extrem General: Yes no pedal edema Results Reviewed Nephrology Results: Hgb 11.2 g/dl (12.0-16.0) L 06/21/24 WBC 2.6 X10*3/uL (4.8-10.8) L 06/21/24 Plt Count 262 X10*3/uL (160-400) 06/21/24 Sodium 141 mmol/L (135-145) 06/21/24 Potassium 4.0 mmol/L (3.3-5.1) 06/21/24 Chloride 106 mmol/L (96-108) 06/21/24 Carbon Dioxide 29 mmol/L (22-29) 06/21/24 BUN 12 mg/dL (9-16) 06/21/24 Creatinine 0.69 mg/dL (0.5-1.4) 06/21/24 Calcium 9.0 mg/dL (8.4-10.2) 06/21/24 Urine Protein Negative mg/dL (Neg-Trace) 06/21/24 Urine Creatinine 29.33 mg/dL 06/21/24 Protein/Creatinin Ratio TNP 06/21/24 Assessment & Plan Assessment & Plan (1) SLE (systemic lupus erythematosus): Comment: 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 neutropenia Medrol tapered off 01/2024 Code(s): M32.9 - Systemic lupus erythematosus, unspecified Category: Medical Qualifiers: Systemic lupus erythematosus type: unspecified Systemic lupus erythematosus organ involvement: other Qualified Code(s): M32.19 - Other organ or system involvement in systemic lupus erythematosus Plan Renal functions normal No RBC and protein in urine now Currently on immunosuppression BP at goal; Hemodynamics stable Volume status optimal On anti coagulation 24 hour urine for protein normal All questions answered Orders: Orders UA and rflx microscopic 1 Year . - Other organ or system involvement in systemic lupus erythematosus Protein Creatinine Ratio, Ur 1 Year . - Other organ or system involvement in systemic lupus erythematosus Creatinine 1 Year . - Other organ or system involvement in systemic lupus erythematosus Electrolytes 1 Year . - Other organ or system involvement in systemic lupus erythematosus Blood Urea Nitrogen 1 Year . - Other organ or system involvement in systemic lupus erythematosus Coding Level of Care Code Est Pt Level 4 (18638) Diagnoses Systemic lupus erythematosus with other organ involvement, unspecified SLE type M32.19 Systemic lupus erythematosus type: unspecified Systemic lupus erythematosus organ involvement: other
[2024-09-11 09:54] VITALS: BP 102/50; BMI 23.0
== END 2024-09-11 10:08 | disposition home or self-care (01) ==
LOC: HO.HKA 09:44
PROVIDERS: PCP Nurse Practitioner Primary Care; Visit Provider Internal Medicine Nephrology
DX: M32.19 Other organ or system involvement in systemic lupus erythematosus (principal)
CPT/HCPCS: 99214

== ENCOUNTER 2024-09-11 10:15 | Outpatient (REF) | payer MEDICARE, SELFPAY ==
[2024-09-11 13:16] LABS: Basophils Percent Auto 0.7 % (0-2); Eosinophils Percent Auto 1.4 % (0-4); Hematocrit 35.3 % (37.0-47.0); Hemoglobin 11.8 g/dl (12.0-16.0); Imm Gran Abs Auto 0.01 X10*3/uL (0.00-0.03); Imm Gran Pct Auto 0.4 % (0.0-0.4); Lymphocytes Absolute Auto 0.5 X10*3/uL (1.2-4.9); Lymphocytes Percent Auto 19.2 % (20-40); Mean Corpuscular HGB Conc 33.4 g/dl (31.0-35.0); Mean Corpuscular Hemoglobin 34.6 pg (27.0-33.0); Mean Corpuscular Volume 103.5 fL (80.0-98.0); Mean Platelet Volume 10.3 fL (9.4-12.3); Monocytes Absolute Auto 0.3 X10*3/uL (0.1-1.2); Monocytes Percent Auto 9.8 % (2-11); Neutrophils Absolute Auto 1.9 x10*3/uL (2.0-8.3); Neutrophils Percent Auto 68.5 % (45-73); Platelet Count 244 X10*3/uL (160-400); Red Blood Count 3.41 X10*6/uL (4.20-5.50); Red Cell Distribution Width 13.8 % (11.0-16.0); White Blood Count 2.8 X10*3/uL (4.8-10.8)
[2024-09-11 13:17] LABS: NRBC Pct Auto 1.4 /100WBC (0.0-0.2)
[2024-09-11 13:18] LABS: MANUAL DIFF FLAG SCAN
[2024-09-11 13:39] LABS: Appearance Urine Clear; Color Urine Dark Yellow; Glucose Urine UA Negative (Negative); Leukocyte Esterase Urine Negative (Negative); Nitrite Urine Negative (Negative); PH 5.5 (5.0-9.0); Urine Blood Negative (Negative); Urine Ketones Trace mg/dL (Negative); Urine Protein Trace mg/dL (Neg-Trace)
[2024-09-11 13:45] LABS: SLIDE REVIEW VERIFIED
[2024-09-11 13:46] LABS: Bacteria Urine None Seen (None Seen); Hyaline Casts Urine 0-2 /LPF (0-2); RBC Urine 0-2 /HPF (0-2); Squamous Epithelial Cell Urine 0-2 /HPF (0-2); WBC Urine 0-5 /HPF (0-5)
[2024-09-11 13:56] LABS: Erythrocyte Sedimentation Rate 28 MM/HR (0-20)
[2024-09-11 14:07] LABS: Alanine Aminotransferase 29 U/L (0-31); Albumin Level 4.2 g/dL (3.5-5.0); Alkaline Phosphatase 68 U/L (39-117); Anion Gap 8 (12-20); Aspartate Amino Transferase 40 U/L (5-31); Bilirubin Total 0.4 mg/dL (0.0-1.0); Blood Urea Nitrogen 14 mg/dL (9-16); C Reactive Protein 0.11 mg/dL (< or = 0.50); Calcium 9.4 mg/dL (8.4-10.2); Carbon Dioxide 30 mmol/L (22-29); Chloride 107 mmol/L (96-108); Estimated Glomerular Filt Rate > 60; Glucose Random 75 mg/dL (60-115); Potassium 3.9 mmol/L (3.3-5.1); Sodium 141 mmol/L (135-145); Total Protein 8.3 g/dL (6.5-8.0)
[2024-09-11 14:24] LABS: Creatinine Urine 122.77 mg/dL; Protein/Creatinine Ratio, Ur 0.09 (<0.2); Total Protein Urine Random 11 mg/dL (<12)
[2024-09-12 20:58] LABS: Anti DNA DS Antibody 15 IU/mL
[2024-09-13 20:23] LABS: Complement C3 124 mg/dL (83-193)
== END 2024-09-11 10:16 | disposition home or self-care (01) ==
LOC: HO.10HDL 10:15
PROVIDERS: Student in an Organized Health Care Education/Training Program; Visit Provider Internal Medicine Nephrology
DX: M32.19 Other organ or system involvement in systemic lupus erythematosus (principal); Z79.624 Long term (current) use of inhibitors of nucleotide synthesis; Z51.81 Encounter for therapeutic drug level monitoring
CPT/HCPCS: 36415; 80053; 81001; 82570; 84156; 85025; 85652; 86140; 86160; 86225; 99212

== ENCOUNTER 2024-11-25 08:14 | Outpatient (REF) | payer MEDICARE, SELFPAY ==
--- OUTSIDE RECORDS SUMMARY | 2024-11-25 08:18 | XMS_ITS | Clinical Summary ---
Author Organization [employer] Address [address] [facility] 7t [place] [address] Care Team Providers Care Travel Rn Or Name Role Phone Unavailable Primary Care Provider [...] Screening 1964 SDOH Screening 1964 Sigmoidoscopy 1964 Disability Screening 1964 Alcohol/Substance Use Screening 1976 Hepatitis C Screening 1982 DTaP/Tdap/Td Vaccines (1 - Tdap) 1983 Pneumococcal Vaccine: 50+ Years (1 of 2 - PCV) 1983 Zoster Vaccines (1 of 2) 1983 Pap Smear 1985 Cervical Cancer Screening 1994 HPV/Cotest 1994 Mammogram 2004 Tobacco Screening 07/26/2023 07/26/2022 COVID-19 Vaccine ( season) 2024 03/02/2022, 08/02/2021, 03/05/2021, Additional history exists RSV Patients and Patients Aged 60 years or older (1 - Risk 60-74 years 1-dose series) 2024 Influenza Vaccine (Season Ended) 2025 03/02/2022, 03/22/2021, 02/26/2020 HIB Vaccines Aged Out No longer eligi [...] patient's age to complete this topic Meningococcal B Vaccine Aged Out No l onger eligible based on patient's age to complete this topic Meningococcal Vaccine Aged Out No naya lawson eligible based on patient's age to complete this topic RSV under 20 months Aged Out No longe r eligible based on patient's age to complete this topic Rotavirus Vaccines Aged Out No longer eligible based on patient's age to complete this topic Insurance [facility] PPO * Guarantor: STEPHANIE SORTO Account Type Relation to Patient Date of Phone Billing Address Personal/Family 1965 [address] [place], [place]
[2024-11-25 11:23] LABS: MANUAL DIFF FLAG NO
[2024-11-25 11:28] LABS: Basophils Percent Auto 0.6 % (0-2); Eosinophils Absolute Auto 0.1 X10*3/uL (0.0-0.4); Eosinophils Percent Auto 1.7 % (0-4); Hematocrit 32.7 % (37.0-47.0); Hemoglobin 10.8 g/dl (12.0-16.0); Imm Gran Abs Auto 0.02 X10*3/uL (0.00-0.03); Imm Gran Pct Auto 0.6 % (0.0-0.4); Lymphocytes Absolute Auto 0.3 X10*3/uL (1.2-4.9); Lymphocytes Percent Auto 8.3 % (20-40); Mean Corpuscular Hemoglobin 34.1 pg (27.0-33.0); Mean Corpuscular Volume 103.2 fL (80.0-98.0); Mean Platelet Volume 9.8 fL (9.4-12.3); Monocytes Absolute Auto 0.3 X10*3/uL (0.1-1.2); Monocytes Percent Auto 9.4 % (2-11); Neutrophils Absolute Auto 2.9 x10*3/uL (2.0-8.3); Neutrophils Percent Auto 79.4 % (45-73); Platelet Count 320 X10*3/uL (160-400); Red Blood Count 3.17 X10*6/uL (4.20-5.50); Red Cell Distribution Width 13.7 % (11.0-16.0); White Blood Count 3.6 X10*3/uL (4.8-10.8)
[2024-11-25 11:29] LABS: Appearance Urine Clear; Color Urine Yellow; Glucose Urine UA Negative (Negative); Leukocyte Esterase Urine Negative (Negative); Nitrite Urine Negative (Negative); Urine Blood Negative (Negative); Urine Ketones Negative (Negative); Urine Protein Negative (Neg-Trace)
[2024-11-25 11:45] LABS: Anion Gap 11 (12-20); Blood Urea Nitrogen 13 mg/dL (9-16); Carbon Dioxide 30 mmol/L (22-29); Chloride 104 mmol/L (96-108); Cholesterol 127 mg/dL (<200); Estimated Glomerular Filt Rate > 60; HDL Cholesterol 49 mg/dL (>40); LDL Cholesterol Calculated 59 mg/dL (<100); Potassium 3.8 mmol/L (3.3-5.1); Sodium 141 mmol/L (135-145); Triglycerides 98 mg/dL (<150)
[2024-11-25 11:56] LABS: Creatinine Urine 37.75 mg/dL; Total Protein Urine Random < 7 mg/dL (<12)
== END 2024-11-25 08:15 | disposition home or self-care (01) ==
LOC: HO.WFDLDS 08:14
PROVIDERS: Referring Provider Internal Medicine Nephrology; Visit Provider Student in an Organized Health Care Education/Training Program
DX: M32.19 Other organ or system involvement in systemic lupus erythematosus (principal); M32.9 Systemic lupus erythematosus, unspecified; D72.819 Decreased white blood cell count, unspecified; E78.5 Hyperlipidemia, unspecified; Z51.81 Encounter for therapeutic drug level monitoring; Z79.624 Long term (current) use of inhibitors of nucleotide synthesis
CPT/HCPCS: 36415; 80051; 80061; 81003; 82565; 82570; 84156; 84520; 85025

== ENCOUNTER 2025-01-02 09:49 | Outpatient (REF) | payer MEDICARE, SELFPAY | END 2025-01-02 09:50 | disposition home or self-care (01) | LOC: HO.HKASLDS 09:49 | PROVIDERS: PCP Nurse Practitioner Primary Care; Visit Provider Internal Medicine Rheumatology | DX: Z51.81 Encounter for therapeutic drug level monitoring (principal); M32.19 Other organ or system involvement in systemic lupus erythematosus; D72.819 Decreased white blood cell count, unspecified; D53.9 Nutritional anemia, unspecified; R70.0 Elevated erythrocyte sedimentation rate; Z79.899 Other long term (current) drug therapy; Z79.624 Long term (current) use of inhibitors of nucleotide synthesis; Z90.81 Acquired absence of spleen; Z86.718 Personal history of other venous thrombosis and embolism; Z79.01 Long term (current) use of anticoagulants | CPT/HCPCS: 36415; 85652; 99212 ==

== ENCOUNTER 2025-01-02 09:49 | Outpatient (AMB) | payer MEDICARE, SELFPAY ==
--- NOTE | 2025-01-02 10:13 | MHC.OFFVIS ---
Vital Signs 01/02/25 10:14 Height 4 ft 9 in Weight 106 lb BMI 22.9 BP 116/64 Blood Pressure Location Lt brachial Position Sitting Pulse 73 Pulse Source Pulse Oximeter Pulse Oximetry (%) 97 Oxygen Delivery Method Room Air Intake Visit Reasons: SLE Intake Note: Patient presents for follow up on SLE, she needs prescriptions today, Azathioprine, Hydroxychloroquine, and Gabapentin if possible. Allergies Penicillins Allergy (Verified 01/02/25 10:19) Chest Pain Sulfa (Sulfonamide Antibiotics) Allergy (Verified 01/02/25 10:19) Chest Pain HPI HPI SLE: Details: She is feeling well. Denies fevers, dyspnea, headaches, pleurisy, oral ulcers, Raynaud's phenomenon, joint pain, sicca symptoms and urinary symptoms. [facility] Medical History Osteopenia Gastritis Hyperlipemia Hypocalcemia Acid reflux Gallbladder & bile duct stone with obstruction Neuropathy Osteoporosis Pulmonary embolism DVT (deep venous thrombosis) SLE (systemic lupus erythematosus) Kidney stones (~12/06/04) Hernia of abdominal wall (~08/08/06) FH: cholecystectomy (~05/08/14) Surgical History S/P IVC filter H/O splenectomy (~08/08/05) Family History Father Colon cancer Lupus AA (alcohol abuse) Heart disease Mother COVID, Onset Age: 82 Sister COVID Maternal Grandfather Myocardial infarction Maternal Grandmother Malignant melanoma Social History Household Members: Spouse Housing: House Alcohol intake: current Alcohol intake frequency: holidays/special occasions only Patient Tobacco Use Status: Never used Tobacco e-Cigarette/Vaping Use: Never Used Second Hand Smoke Exposure: No Substance Use Type: Caffiene service: No Current occupational status: retired and disabled Current occupational exposures/hazards: No Gender identity: Female Cognitive needs: No Hearing needs: No Vision needs: No Physical Exam Vital Signs: Last Vital Signs Pulse 73 01/02/25 10:14 BP 116/64 01/02/25 10:14 Pulse Ox 97 01/02/25 10:14 Oxygen Delivery Method Room Air 01/02/25 10:14 BMI result Body Mass Index 22.9 Const Other: General: Comfortable CVS: RRR Respiratory: clear to auscultation bilaterally. Good respiratory effort Skin: No lesions seen MSK: No tender joints. Heberden nodes present. No synovitis. Normal range of motion of upper extremities and lower extremities. No MTP tenderness. Assessment & Plan Assessment & Plan (1) SLE (systemic lupus erythematosus): Comment: In clinical remission on current regimen. She continues to have stable leukopenia and macrocytic anemia. Platelets are normal. Recent labs 12/11/2024 revealed elevated ESR. She reports no recent infection. 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 HCQ restarted 03/2023, AZA increased to 50 mg, increased to 75 mg 08/12, lowered to 50 mg 06/11 d.t. neutropenia. Medrol tapered off 01/2024. Code(s): M32.9 - Systemic lupus erythematosus, unspecified Category: Medical Qualifiers: Systemic lupus erythematosus type: unspecified Systemic lupus erythematosus organ involvement: other Qualified Code(s): M32.19 - Other organ or system involvement in systemic lupus erythematosus Plan: I have ordered ESR for her to repeat Labs for disease and drug monitoring on high-risk medication are up-to-date Continue hydroxychloroquine 200 mg daily. Eye exam OCT and visual field within normal limit 11/2024 Dr. Stroud. Continue azathioprine 50 mg daily Return to clinic in 3 months. If she continues to remain in remission, I may be able to extend her after follow-up (2) Other joint terminal attack controller (current) drug therapy: Code(s): Z79.899 - Other fci (current) drug therapy Category: Medical Plan: See above (3) Encounter for monitoring azathioprine therapy: Comment: Due to neutropenia her azathioprine dose was reduced to [address] Mendoza in the past. Code(s): Z51.81 - Encounter for therapeutic drug level monitoring; Z79.624 - senior living (current) use of inhibitors of nucleotide synthesis Category: Medical Plan: Monitor CBC Orders: Orders Erythrocyte Sedimentation Rate Today M32.9 - Systemic lupus erythematosus, unspecified Medications: Refilled azathioprine 50 mg PO DAILY 30 tabs 2RF hydroxychloroquine 200 mg PO DAILY 30 days 30 tabs 2RF Coding Level of Care Code Est Pt Level 4 (12368) Complex EM visit Add On G2211 Diagnoses Systemic lupus erythematosus with other organ involvement, unspecified SLE type M32.19 Systemic lupus erythematosus type: unspecified Systemic lupus erythematosus organ involvement: other Other joint terminal attack controller (current) drug therapy Z79.899 Encounter for monitoring azathioprine therapy Z51.81; Z79.624
[2025-01-02 10:14] VITALS: BP 116/64; PULSE 73; O2SAT 97; BMI 22.9
--- OUTSIDE RECORDS SUMMARY | 2025-01-02 10:14 | XMS_ITS | Clinical Summary ---
Author Organization [employer] Address [address] [facility] [address]t [place] [address] Care Team Providers Care Supervisor Frame Assembly Name Role Phone Unavailable Primary Care Provider [...] 60-74 years 1-dose series) 2024 Influenza Vaccine (#1) 2025 2, 03/22/2021, 02/26/2020 HIB Vaccines Aged Out No [...] patient's age to complete this topic Insurance [facility] PPO * Guarantor: STEPHANIE SORTO Account Type Relation to Patient Date of Phone Billing Address Personal/Family 1965 [address] [place], [place]
== END 2025-01-02 10:59 | disposition home or self-care (01) ==
LOC: HO.RHES 09:50
PROVIDERS: PCP Nurse Practitioner Primary Care; Visit Provider Internal Medicine Rheumatology
DX: M32.19 Other organ or system involvement in systemic lupus erythematosus (principal); Z79.899 Other long term (current) drug therapy; Z51.81 Encounter for therapeutic drug level monitoring; Z79.624 Long term (current) use of inhibitors of nucleotide synthesis
CPT/HCPCS: 99214; G2211

== ENCOUNTER 2025-03-05 10:09 | Outpatient (REF) | payer MEDICARE, SELFPAY ==
[2025-03-05 11:17] LABS: MANUAL DIFF FLAG NO
[2025-03-05 11:20] LABS: Hematocrit 35.6 % (37.0-47.0); Hemoglobin 11.9 g/dl (12.0-16.0); Imm Gran Abs Auto 0.00 X10*3/uL (0.00-0.03); Imm Gran Pct Auto 0.0 % (0.0-0.4); Lymphocytes Absolute Auto 0.5 X10*3/uL (1.2-4.9); Mean Corpuscular HGB Conc 33.4 g/dl (31.0-35.0); Mean Corpuscular Hemoglobin 34.0 pg (27.0-33.0); Mean Corpuscular Volume 101.7 fL (80.0-98.0); NRBC Abs Auto 0.020 X10*3/uL (0.0-0.012); NRBC Pct Auto 0.8 /100WBC (0.0-0.2); Platelet Count 265 X10*3/uL (160-400); Red Blood Count 3.50 X10*6/uL (4.20-5.50); White Blood Count 2.6 X10*3/uL (4.8-10.8)
[2025-03-05 11:34] LABS: Anion Gap 9 (12-20); Blood Urea Nitrogen 16 mg/dL (9-16); Carbon Dioxide 30 mmol/L (22-29); Chloride 105 mmol/L (96-108); Estimated Glomerular Filt Rate > 60; Potassium 4.0 mmol/L (3.3-5.1); Sodium 140 mmol/L (135-145)
--- OUTSIDE RECORDS SUMMARY | 2025-03-05 12:20 | XMS_ITS | Clinical Summary ---
Author Organization [facility] Address [address] [place], [place] [id number] Phone Care Team Providers Care Carbon Furnace Operator Helper Name Role Phone Poly Gomez MD Primary Care Provider [phone] Social History Tobacco Use Types Packs/Day Years Used Date Smoking Tobacco: Never Assessed Education Answer Date Recorded Are you interested in more education? Not on manav e 10/14/2022 Are you concerned about learning? Not on file 10/14/2022 No 10/14/2022 No 10/14/2022 Digital Access Answer Date Recorded No 11/15/2022 No 11/15/2022 Reliable internet access at home? Not on file 11/15/2022 Device with a working camera? Not on file Comments Unknown Sex and Gender Information Value Date Recorded Sex Assigned at Not on file Legal Sex Female 8:24 PM EDT Gender Identity Not on file Sexual Orientation Not on file Plan of Treatment Not on file Medical Devices Not on file Insurance [facility] [place] [address] [facility] MEDICARE [place] [address] [place] [address] MEDICARE REPLACEMENT [facility] MEDICARE REPLACEMENT [facility] MEDICARE REPLACEMENT MEDICARE REPLACEMENT MEDICARE REPLACEMENT MEDICARE REPLACEMENT [place] [id number] [facility] [place] [address] Care Teams Carbon Furnace Operator Helper Relationship Specialty Start Date End Date Poly Gomez MD [address] [place] [id number] [email or web address] PCP - General 09/16/20 Additional Source Comments The information contained in this document represents components of the legal health record. It is not the complete legal health record.[facility]
--- OUTSIDE RECORDS SUMMARY | 2025-03-05 12:20 | XMS_ITS | Encounter Summary ---
Author Organization [employer] Address [address] [facility] 7t [place] [address] Care Team Providers Care Opticianry Teacher Name Role Phone Unavailable Primary Care Provider Unavailabl e Encounter Details Date Type Department Care Team (Late st Contact Info) Description 07/26/2022 Abstract [facility] [address] [place] [address] Travis Carpenter, BDS [address] [place] [address] Social History Tobacco Use Types Packs/Day Years [...]
--- OUTSIDE RECORDS SUMMARY | 2025-03-05 12:20 | XMS_ITS | Clinical Summary ---
Author Organization [employer] Address [address] [facility] 7t [place] [address] Care Team Providers Care Data Integration Analyst Name Role Phone Unavailable Primary Care Provider [...] 1994 Mammogram 2004 Tobacco Screening 07/26/2023 07/26/2022 RSV Patients and Patients Aged 60 years or older (1 - Risk 60-74 years 1-dose series) 2024 COVID-19 Vaccine ( season) 2025 03/02/2022, 08/02/2021, 03/05/2021, Additional history exists Influenza Vaccine (#1) 2025 2, 03/22/2021, 02/26/2020 [...] patient's age to complete this topic Insurance [facility] PPO * Guarantor: STEPHANIE SORTO Account Type Relation to Patient Date of Phone Billing Address Personal/Family 1965 [address] [place], [place]
== END 2025-03-05 10:10 | disposition home or self-care (01) ==
LOC: HO.WFDLDS 10:09
PROVIDERS: Referring Provider Internal Medicine Nephrology; Visit Provider Student in an Organized Health Care Education/Training Program
DX: M32.19 Other organ or system involvement in systemic lupus erythematosus (principal); M32.9 Systemic lupus erythematosus, unspecified; Z79.624 Long term (current) use of inhibitors of nucleotide synthesis
CPT/HCPCS: 36415; 80051; 82565; 84520; 85025

== ENCOUNTER 2025-04-17 10:06 | Outpatient (AMB) | payer MEDICARE, SELFPAY ==
[2025-04-17 10:08] VITALS: BP 98/52; PULSE 86; O2SAT 98; BMI 22.2
--- NOTE | 2025-04-17 10:08 | MHC.OFFVIS ---
Vital Signs 04/17/25 10:08 Height 4 ft 9 in Weight 102 lb 11.767 oz BMI 22.2 BP 98/52 L Blood Pressure Location Rt brachial Position Sitting Pulse 86 Pulse Source Pulse Oximeter Pulse Oximetry (%) 98 Oxygen Delivery Method Room Air Intake Visit Reasons: 3 month follow up Intake Note: Patient presents for follow up on SLE. Accompanied by: Self / Same As Patient Allergies Penicillins Allergy (Verified 04/17/25 10:08) Chest Pain Sulfa (Sulfonamide Antibiotics) Allergy (Verified 04/17/25 10:08) Chest Pain HPI HPI 3 month follow up: Details: She feels well. Denies any joint pain, joint stiffness, dyspnea, pleurisy, oral ulcers, Raynaud's phenomenon, rash, urinary symptoms. She has not had any recent infections. She is up-to-date with her flu and COVID-19 vaccine. [facility] Medical History Osteopenia Gastritis Hyperlipemia Hypocalcemia Acid reflux Gallbladder & bile duct stone with obstruction Neuropathy Osteoporosis Pulmonary embolism DVT (deep venous thrombosis) SLE (systemic lupus erythematosus) Kidney stones (~12/06/04) Hernia of abdominal wall (~08/08/06) FH: cholecystectomy (~05/08/14) Surgical History S/P IVC filter H/O splenectomy (~08/08/05) Family History Father Colon cancer Lupus AA (alcohol abuse) Heart disease Mother COVID, Onset Age: 82 Sister COVID Maternal Grandfather Myocardial infarction Maternal Grandmother Malignant melanoma Social History Household Members: Spouse Housing: House Alcohol intake: current Alcohol intake frequency: holidays/special occasions only Patient Tobacco Use Status: Never used Tobacco e-Cigarette/Vaping Use: Never Used Second Hand Smoke Exposure: No Substance Use Type: Caffiene service: No Current occupational status: retired and disabled Current occupational exposures/hazards: No Gender identity: Female Cognitive needs: No Hearing needs: No Vision needs: No Physical Exam Vital Signs: Last Vital Signs Pulse 86 04/17/25 10:08 BP 98/52 L 04/17/25 10:08 Pulse Ox 98 04/17/25 10:08 Oxygen Delivery Method Room Air 04/17/25 10:08 BMI result Body Mass Index 22.2 Const Other: General: Comfortable CVS: RRR Respiratory: clear to auscultation bilaterally. Good respiratory effort Skin: No lesions seen MSK: No tender joints. Heberden nodes present. No synovitis. Normal range of motion of upper extremities and lower extremities. No MTP tenderness. Assessment & Plan Assessment & Plan (1) SLE (systemic lupus erythematosus): Comment: In clinical remission on current regimen. She continues to have stable leukopenia and macrocytic anemia. Platelets are normal. She will obtain labs this visit to further assess SLE activity. We discuss considering reducing azathioprine dose to every other day because she remains in remission and with consideration of her cytopenia. Patient would like to remain on current dosing because she is afraid for relapse disease with dose lowering, which is reasonable. 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 HCQ restarted 03/2023, AZA increased to 50 mg, increased to 75 mg 08/12, lowered to 50 mg 06/11 d.t. neutropenia. Medrol tapered off 01/2024. Code(s): M32.9 - Systemic lupus erythematosus, unspecified Category: Medical Qualifiers: Systemic lupus erythematosus type: unspecified Systemic lupus erythematosus organ involvement: other Qualified Code(s): M32.19 - Other organ or system involvement in systemic lupus erythematosus Plan: Labs for disease monitoring ordered. She will have labs for disease and drug monitoring every 3 months Continue hydroxychloroquine 200 mg daily. Eye exam OCT and visual field within normal limit 11/2024 Dr. Stroud. 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 TPMT ordered. 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 Protein Creatinine Ratio, Ur 3 Months M32.9 - Systemic lupus erythematosus, unspecified Complement C3 3 Months M32.9 - Systemic lupus erythematosus, unspecified Creatinine 3 Months M32.9 - Systemic lupus erythematosus, unspecified Anti DNA DS Antibody 3 Months M32.9 - Systemic lupus erythematosus, unspecified Complement C4 Today M32.9 - Systemic lupus erythematosus, unspecified Anti DNA DS Antibody Today M32.9 - Systemic lupus erythematosus, unspecified Erythrocyte Sedimentation Rate Today M32.9 - Systemic lupus erythematosus, unspecified Alanine Aminotransferase Today M32.9 - Systemic lupus erythematosus, unspecified Complete Blood Count Auto Diff Today Z79.899 - Other half-way (current) drug therapy Complete Blood Count Auto Diff 3 Months M32.9 - Systemic lupus erythematosus, unspecified Erythrocyte Sedimentation Rate 3 Months M32.9 - Systemic lupus erythematosus, unspecified Alanine Aminotransferase 3 Months M32.9 - Systemic lupus erythematosus, unspecified Aspartate Amino Transferase 3 Months M32.9 - Systemic lupus erythematosus, unspecified Complement C4 3 Months M32.9 - Systemic lupus erythematosus, unspecified UA ClnCatch+Micro w/rflx Cult 3 Months M32.9 - Systemic lupus erythematosus, unspecified C Reactive Protein 3 Months M32.9 - Systemic lupus erythematosus, unspecified UA ClnCatch+Micro w/rflx Cult Today M32.9 - Systemic lupus erythematosus, unspecified TPMT Genetic Test Today Z79.899 - Other half-way (current) drug therapy Medications: Refilled azathioprine 50 mg PO DAILY 90 tabs 0RF Coding Level of Care Code Est Pt Level 4 (43024) Complex EM visit Add On G2211 Diagnoses Systemic lupus erythematosus with other organ involvement, unspecified SLE type M32.19 Systemic lupus erythematosus type: unspecified Systemic lupus erythematosus organ involvement: other 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
--- OUTSIDE RECORDS SUMMARY | 2025-04-17 12:09 | XMS_ITS | Clinical Summary ---
Author Organization [employer] Address [address] [place] [address] Care Team Providers Care Job Press Feeder Name Role Phone Unavailable Primary Care Provider [...] patient's age to complete this topic Insurance [facility] PPO * Guarantor: STEPHANIE SORTO Account Type Relation to Patient Date of Phone Billing Address Personal/Family 1965 [address] [place], [place]
--- OUTSIDE RECORDS SUMMARY | 2025-04-17 12:09 | XMS_ITS | Clinical Summary ---
Author Organization [facility] Address [address] [place], [place] [address] Phone Care Team Providers Care Director Check Name Role Phone Poly Gomez MD Primary Care Provider [phone] Social History Tobacco Use Types Packs/Day Years [...] file Medical Devices Not on file Insurance [facility] [address] [facility] MEDICARE [place] [place] [address] MEDICARE REPLACEMENT [facility] MEDICARE REPLACEMENT [facility] MEDICARE REPLACEMENT MEDICARE REPLACEMENT MEDICARE REPLACEMENT MEDICARE REPLACEMENT [place] [id number] [facility] [place] [address] Care Teams Director Check Relationship Specialty Start Date End Date Poly Gomez MD [address] [place] [id number] [email or web address] PCP - General 09/16/20 Additional Source Comments The information contained in this document represents components of the legal health record. It is not the complete legal health record.[facility]
--- OUTSIDE RECORDS SUMMARY | 2025-04-17 12:09 | XMS_ITS | Encounter Summary ---
Author Organization [employer] Address [address] [facility] [address] [place] [address] Care Team Providers Care Inspector Salvage Name Role Phone Unavailable Primary Care Provider Unavailabl e Encounter Details Date Type Department Care Team (Late st Contact Info) Description 07/26/2022 Abstract [facility] [address] [place] [address] Travis Carpenter, BDS [address] [place] [address] Social History Tobacco Use Types Packs/Day Years [...]
== END 2025-04-17 10:45 | disposition home or self-care (01) ==
LOC: HO.RHES 10:06
PROVIDERS: PCP Nurse Practitioner Primary Care; Visit Provider Internal Medicine Rheumatology
DX: M32.19 Other organ or system involvement in systemic lupus erythematosus (principal); Z79.899 Other long term (current) drug therapy; Z51.81 Encounter for therapeutic drug level monitoring; Z79.624 Long term (current) use of inhibitors of nucleotide synthesis
CPT/HCPCS: 99214; G2211

== ENCOUNTER 2025-04-17 10:06 | Outpatient (REF) | payer MEDICARE, SELFPAY ==
[2025-04-17 13:28] LABS: Hematocrit 35.3 % (37.0-47.0); Hemoglobin 11.4 g/dl (12.0-16.0); Imm Gran Abs Auto 0.01 X10*3/uL (0.00-0.03); Imm Gran Pct Auto 0.4 % (0.0-0.4); Lymphocytes Absolute Auto 0.5 X10*3/uL (1.2-4.9); MANUAL DIFF FLAG SCAN; Mean Corpuscular HGB Conc 32.3 g/dl (31.0-35.0); Mean Corpuscular Hemoglobin 34.0 pg (27.0-33.0); Mean Corpuscular Volume 105.4 fL (80.0-98.0); NRBC Abs Auto 0.070 X10*3/uL (0.0-0.012); Platelet Count 282 X10*3/uL (160-400); Red Blood Count 3.35 X10*6/uL (4.20-5.50); SCAN SMEAR FLAG 1
[2025-04-17 13:29] LABS: NRBC Pct Auto 3.1 /100WBC (0.0-0.2); White Blood Count 2.3 X10*3/uL (4.8-10.8)
[2025-04-17 13:47] LABS: Appearance Urine Clear; Glucose Urine UA Negative (Negative); PH 7.5 (5.0-9.0); Specific Gravity - Urine 1.010 (1.005-1.025)
[2025-04-17 13:49] LABS: Alanine Aminotransferase 35 U/L (0-31); Aspartate Amino Transferase 51 U/L (5-31); Estimated Glomerular Filt Rate > 60
== END 2025-04-17 10:07 | disposition home or self-care (01) ==
LOC: HO.HKASLDS 10:06
PROVIDERS: PCP Nurse Practitioner Primary Care; Visit Provider Internal Medicine Rheumatology
DX: M32.19 Other organ or system involvement in systemic lupus erythematosus (principal); Z51.81 Encounter for therapeutic drug level monitoring; Z79.899 Other long term (current) drug therapy
CPT/HCPCS: 36415; 81001; 81335; 82565; 84450; 84460; 85025; 85652; 86140; 86160; 86225; 99212